=== PATIENT | female | born 1995 | race Caucasian/White ===

== ENCOUNTER 2019-12-27 15:28 | Outpatient (REF) | payer MEDICAID, SELFPAY | END 2019-12-27 15:29 | disposition home or self-care (01) | LOC: HO.LAB 15:28 | PROVIDERS: Visit Provider Internal Medicine | DX: Z20.828 Contact with and (suspected) exposure to other viral communicable diseases (principal) | CPT/HCPCS: U0003 ==

== ENCOUNTER → 2020-11-10 13:23 | Outpatient (BNVA) | payer MEDICAID, SELFPAY | PROVIDERS: PCP Internal Medicine; Visit Provider Obstetrics & Gynecology | DX: R87.612 Low grade squamous intraepithelial lesion on cytologic smear of cervix (LGSIL) (principal) | CPT/HCPCS: 99202 ==

== ENCOUNTER → 2020-11-24 12:15 | Outpatient (BNVA) | payer MEDICAID, SELFPAY | PROVIDERS: PCP Internal Medicine; Visit Provider Obstetrics & Gynecology ==

== ENCOUNTER 2020-12-24 09:17 | Outpatient (REF) | payer MEDICAID, SELFPAY | END 2020-12-24 09:18 | disposition home or self-care (01) | LOC: HO.LAB 09:17 | PROVIDERS: PCP Internal Medicine; Visit Provider Obstetrics & Gynecology | DX: R87.612 Low grade squamous intraepithelial lesion on cytologic smear of cervix (LGSIL) (principal) | CPT/HCPCS: 57454; 88305 ==

== ENCOUNTER → 2020-12-31 11:44 | Outpatient (BNVA) | payer MEDICAID, SELFPAY | PROVIDERS: PCP Internal Medicine; Visit Provider Obstetrics & Gynecology | DX: N87.0 Mild cervical dysplasia (principal) | CPT/HCPCS: 99212 ==

== ENCOUNTER 2022-03-15 09:08 | Outpatient (REF) | payer MEDICAID, SELFPAY ==
[2022-03-15 14:15] LABS: CT PCR NOT DETECTED (Not Detect.); NG PCR NOT DETECTED (Not Detect.)
[2022-03-16 12:54] LABS: BV Int Neg Control Negative (Negative); BV Int Pos Control Positive (Positive)
[2022-03-22 05:38] LABS: HPV 16 RNA NOT DETECTED (NOT DETECTED); HPV mRNA E6/E7 rflx Detected (Not Detected)
== END 2022-03-15 09:09 | disposition home or self-care (01) ==
LOC: HO.LNP 09:08
PROVIDERS: Advanced Practice Midwife; PCP Internal Medicine; Visit Provider Obstetrics & Gynecology
DX: Z01.419 Encounter for gynecological examination (general) (routine) without abnormal findings (principal); N87.0 Mild cervical dysplasia; N89.8 Other specified noninflammatory disorders of vagina; G71.00 Muscular dystrophy, unspecified; M41.9 Scoliosis, unspecified; Z11.3 Encounter for screening for infections with a predominantly sexual mode of transmission; Z98.51 Tubal ligation status; Z79.899 Other long term (current) drug therapy
CPT/HCPCS: 0353U; 87480; 87510; 87624; 87625; 87660; 88142

== ENCOUNTER 2022-07-06 12:47 | Outpatient (REF) | payer MEDICAID, SELFPAY | END 2022-07-06 12:48 | disposition home or self-care (01) | LOC: HO.LNP 12:47 | PROVIDERS: PCP Internal Medicine; Visit Provider Obstetrics & Gynecology | DX: R87.810 Cervical high risk human papillomavirus (HPV) DNA test positive (principal); R87.610 Atypical squamous cells of undetermined significance on cytologic smear of cervix (ASC-US) | CPT/HCPCS: 57454; 81025; 88305 ==

== ENCOUNTER → 2022-08-04 09:43 | Outpatient (BNVA) | payer MEDICAID, SELFPAY | PROVIDERS: PCP Internal Medicine; Visit Provider Obstetrics & Gynecology ==

== ENCOUNTER 2022-12-20 09:11 | Outpatient (REF) | payer MEDICAID, SELFPAY ==
[2022-12-20 13:19] LABS: CT PCR NOT DETECTED (Not Detect.); NG PCR NOT DETECTED (Not Detect.)
== END 2022-12-20 09:12 | disposition home or self-care (01) ==
LOC: HO.HHCL 09:11
PROVIDERS: Visit Provider Advanced Practice Midwife
DX: N93.9 Abnormal uterine and vaginal bleeding, unspecified (principal); R30.0 Dysuria
CPT/HCPCS: 0353U; 87086

== ENCOUNTER 2022-12-20 11:08 | Outpatient (REF) | payer MEDICAID, SELFPAY ==
[2022-12-20 14:39] LABS: HCG Quantitative < 2 mIU/mL; TSH reflex Free T4 1.33 uIU/mL (0.32-4.0)
[2022-12-21 08:24] LABS: HIV AB/AG Nonreactive (Nonreactive); HIV Num 1 0.06 S/CO (0.00-0.99); ~HepC Num1 0.06 S/CO (0.00-0.79); ~Hepatitis C Antibody Nonreactive (Nonreactive)
[2022-12-21 08:29] LABS: Syphilis Screen Nonreactive (Nonreactive)
== END 2022-12-20 11:09 | disposition home or self-care (01) ==
LOC: HO.HHCL 11:08
PROVIDERS: Visit Provider Advanced Practice Midwife
DX: N93.9 Abnormal uterine and vaginal bleeding, unspecified (principal)
CPT/HCPCS: 0353U; 36415; 84443; 84702; 86780; 86803; 87086; 87389

== ENCOUNTER 2023-05-11 13:06 | Outpatient (REF) | payer MEDICAID, SELFPAY ==
--- NOTE | ~2023-05-11 | US_ITS ---
EXAMINATION: US PELVIS CLINICAL INFORMATION: AP COMPARISON: None available. TECHNIQUE: Ultrasound of the pelvis is performed using transabdominal transducers along with Doppler. Patient refused transvaginal ultrasound FINDINGS: Uterus: The uterus is anteverted, anteflexed and measures 9.1 x 4.0 x 4.6 cm. The double wall endometrial thickness is 0.9 cm. The uterus is smooth in contour and has normal myometrial echogenicity. There is a small hypoechoic lesion in the left body of uterus measuring 0.7 x 0.6 x 0.6 cm likely a small fibroid. Adnexa: Both ovaries are visualized. There is normal color flow to the adnexa. There is no ovarian torsion. There is no pelvic ascites or fluid collection. Right ovary measures 30.0 x 1.6 x 1.8 cm and volume 1.8 mL There is a small exophytic anechoic cyst measuring 1.6 x 1.3 x 1.1 cm. Left ovary measures 2.3 x 1.7 x 1.6 cm and volume 3.3 mL. No focal lesion seen. US/US pelvic complete IMPRESSION: Solitary small uterine fibroid left body of uterus. Likely a small exophytic cyst right ovary. The left ovary is unremarkable.
== END 2023-05-11 13:07 | disposition home or self-care (01) ==
LOC: HO.US 13:06
PROVIDERS: PCP Internal Medicine; Visit Provider Advanced Practice Midwife
DX: N93.9 Abnormal uterine and vaginal bleeding, unspecified (principal)
CPT/HCPCS: 76856

== ENCOUNTER 2023-05-30 08:36 | Outpatient (REF) | payer MEDICAID, SELFPAY ==
[2023-06-22 22:43] LABS: HPV 16 RNA NOT DETECTED (NOT DETECTED); HPV mRNA E6/E7 rflx Detected (Not Detected)
== END 2023-05-30 08:37 | disposition home or self-care (01) ==
LOC: HO.LNP 08:36
PROVIDERS: PCP Internal Medicine; Visit Provider Obstetrics & Gynecology
DX: R87.610 Atypical squamous cells of undetermined significance on cytologic smear of cervix (ASC-US) (principal); R87.810 Cervical high risk human papillomavirus (HPV) DNA test positive; D25.9 Leiomyoma of uterus, unspecified
CPT/HCPCS: 0353U; 84146; 84443; 84702; 85027; 87624; 87625; 88142; 99212

== ENCOUNTER 2023-05-30 08:36 | Outpatient (AMB) | payer MEDICAID, SELFPAY ==
--- NOTE | 2023-05-30 08:46 | A.OFFVIS_ITS ---
Intake Intake Visit Reasons: AUB Applications Project Manager Required: Yes Applications Project Manager Language: Herbicide Service Sales Representative Name: Randi CONNORS Information Interpreted: non-clinical & clinical Cable Television Installer: Cable Television Installer Present (Randi CONNORS) Accompanied by: Employee Allergies No Known Allergies Allergy (Verified 05/30/23 08:50) Is last menstrual period known: Yes HPI HPI Comments History of Present Illness Details Presenting complaining of irregular menstrual cycles the last few months. The patient is started on Depo-Provera around 5 months ago received 2 shots so far and is scheduled for next Depo-Provera injection at [facility] on 06/04. Pelvic ultrasound done in 05/20 showed the following: Uterus: The uterus is anteverted, anteflexed and measures 9.1 x 4.0 x 4.6 cm. The double wall endometrial thickness is 0.9 cm. The uterus is smooth in contour and has normal myometrial echogenicity. There is a small hypoechoic lesion in the left body of uterus measuring 0.7 x 0.6 x 0.6 cm likely a small fibroi d. Adnexa: Both ovaries are visualized. There is normal color flow to the adnexa. There is no ovarian torsion. There is no pelvic ascites or fluid collection. Right ovary measures 30.0 x 1.6 x 1.8 cm and volume 1.8 mL There is a small exophytic anechoic cyst measuring 1.6 x 1.3 x 1.1 cm. Left ovary measures 2.3 x 1.7 x 1.6 cm and volume 3.3 mL. No focal lesion seen. Last co testing was in 03/21 showed ASCUS HPV positive, colpo biopsy/ECC were negative [facility] Medical History LGSIL (low grade squamous intraepithelial dysplasia) Anxiety, generalized Insomnia Hypothyroid Anemia Asthma Scoliosis Muscular dystrophy Surgical History Hx of tubal ligation History of back surgery H/O eye surgery Family History Mother Thyroid disorder HTN (hypertension) Father HTN (hypertension) Paternal Grandmother Diabetes Sister Thyroid disorder Sister No problems noted. Brother No problems noted. 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 Alcohol intake: current Alcohol intake frequency: holidays/special occasions only Patient Tobacco Use Status: Never used Tobacco Current occupational status: disabled Sexual orientation: Straight/Heterosexual Gender identity: Female Female Reproductive History Menstrual Age of Menarche: 12 Review of Systems Const All systems reviewed & are unremarkable except as noted in HPI and below Physical Exam General: Yes no CVA tenderness External Female Exam: normal external appearance and normal appearance of the urethra Speculum Exam - Vagina: normal appearance of the vagina, normal palpation, no lesions and no masses Speculum Exam - Cervix: normal appearance of the cervix, normal palpation, no lesions, no masses and nontender Bimanual exam- vagina & uterus: normal bimanual exam, normal palpation, uterine size normal, normal palpation, uterine shape normal, No Cervical tenderness present and non-tender Bimanual Exam- Adnexa, other: normal adnexae Back/Spine/Pelvis Back: no CVA tenderness Assessment & Plan Assessment & Plan (1) ASCUS with positive high risk HPV cervical: Comment: 2017 LSIL 2020 SHAWNA 1 1 cervix biopsy equivocal insufficient for dysplasia diagnosis otherwise all negative 2022 ascus/HPV positive, colpo/biopsy negative Code(s): R87.610 - Atypical squamous cells of undetermined significance on cytologic smear of cervix (ASC-US); R87.810 - Cervical high risk human papillomavirus (HPV) DNA test positive Plan: Pap repeated, will check the results and treat accordingly (2) Uterine myoma: Code(s): D25.9 - Leiomyoma of uterus, unspecified Plan: Discussed with the patient the findings on pelvic ultrasound & the risk of myosarcoma; discussed with the patient the options of treatment including expectant management versus hysterectomy; the pros and cons, risks benefits of each approach were discussed with the patient including the fact that in cases of myosarcoma, surgical treatment can lead to early diagnosis and positively affects the prognosis; after further discussion, the patient decided to proceed with expectant management. Will repeat pelvic ultrasound periodically. Instructions given to patient to call in case any of the following occurs: pressure symptoms, abnormal uterine bleeding, pelvic pain; and to schedule a six-month pelvic ultrasound and a follow-up appointment . All questions answered, the patient verbalized understanding and agreed with the plan . (3) Abnormal uterine bleeding (AUB): Comment: On Depo-Provera Code(s): N93.9 - Abnormal uterine and vaginal bleeding, unspecified Plan: Urine test done in the office was negative. Co testing done, GC and chlamydia taken CBC, prolactin, TSH, HCG ordered. Discussed with the patient the different causes of abnormal bleeding including thyroid disorders, uterine and ovarian pathology and other potential causes. Discussed with the patient the work up including CBC (to r/o anemia), TSH, pelvic Ultrasound. All questions answered and the patient verbalized understanding. Instructed the patient to schedule an appointment for an endometrial biopsy in 2 weeks. Orders: Orders TSH reflex Free T4 Today N93.9 - Abnormal uterine and vaginal bleeding, unspecified Prolactin Today N93.9 - Abnormal uterine and vaginal bleeding, unspecified HCG Quantitative Today N93.9 - Abnormal uterine and vaginal bleeding, unspecified Complete Blood Count no Diff Today N93.9 - Abnormal uterine and vaginal bleeding, unspecified US pelvic and transvaginal 6 Months D25.9 - Leiomyoma of uterus, unspecified Coding Level of Care Code Est Pt Level 3 (91450) Diagnoses ASCUS with positive high risk HPV cervical R87.610; R87.810 Uterine myoma D25.9 Abnormal uterine bleeding (AUB) N93.9
== END 2023-05-30 12:25 | disposition home or self-care (01) ==
LOC: HO.HWS 08:36
PROVIDERS: PCP Internal Medicine; Visit Provider Obstetrics & Gynecology
DX: R87.610 Atypical squamous cells of undetermined significance on cytologic smear of cervix (ASC-US) (principal); R87.810 Cervical high risk human papillomavirus (HPV) DNA test positive; D25.9 Leiomyoma of uterus, unspecified; N93.9 Abnormal uterine and vaginal bleeding, unspecified
CPT/HCPCS: 99213

== ENCOUNTER 2023-05-30 09:39 | Outpatient (REF) | payer MEDICAID, SELFPAY ==
[2023-05-30 10:53] LABS: Hematocrit 29.5 % (37.0-47.0); Mean Corpuscular HGB Conc 30.5 g/dl (31.0-35.0); Mean Corpuscular Hemoglobin 25.9 pg (27.0-33.0); Mean Corpuscular Volume 84.8 fL (80.0-98.0); Mean Platelet Volume 10.5 fL (9.4-12.3); Platelet Count 415 X10*3/uL (160-400); Red Blood Count 3.48 X10*6/uL (4.20-5.50); Red Cell Distribution Width 15.3 % (11.0-16.0); White Blood Count 6.2 X10*3/uL (4.8-10.8)
[2023-05-30 11:42] LABS: HCG Quantitative < 2 mIU/mL; TSH reflex Free T4 1.22 uIU/mL (0.32-4.0)
[2023-05-31 03:05] LABS: CT PCR NOT DETECTED (Not Detect.); NG PCR NOT DETECTED (Not Detect.)
[2023-05-31 19:13] LABS: Prolactin 14.6 ng/mL
== END 2023-05-30 09:40 | disposition home or self-care (01) ==
LOC: HO.LAB 09:39
PROVIDERS: PCP Internal Medicine; Visit Provider Obstetrics & Gynecology
DX: N93.9 Abnormal uterine and vaginal bleeding, unspecified (principal)
CPT/HCPCS: 0353U; 84146; 84443; 84702; 85027

== ENCOUNTER 2023-06-06 10:04 | Outpatient (REF) | payer MEDICAID, SELFPAY | END 2023-06-06 10:05 | disposition home or self-care (01) | LOC: HO.HHCL 10:04 | PROVIDERS: Visit Provider Internal Medicine | DX: Z13.89 Encounter for screening for other disorder (principal) ==

== ENCOUNTER 2023-06-07 09:18 | Outpatient (REF) | payer MEDICAID, SELFPAY ==
[2023-06-07 12:20] LABS: HCG Quantitative < 2 mIU/mL
== END 2023-06-07 09:19 | disposition home or self-care (01) ==
LOC: HO.HHCL 09:18
PROVIDERS: Visit Provider Internal Medicine
DX: Z13.89 Encounter for screening for other disorder (principal)
CPT/HCPCS: 36415; 84702

== ENCOUNTER 2023-06-28 07:58 | Outpatient (REF) | payer MEDICAID, SELFPAY ==
[2023-06-28 09:44] LABS: Hematocrit 34.8 % (37.0-47.0); Hemoglobin 10.7 g/dl (12.0-16.0); Mean Corpuscular HGB Conc 30.7 g/dl (31.0-35.0); Mean Corpuscular Volume 84.7 fL (80.0-98.0); Platelet Count 423 X10*3/uL (160-400); Red Blood Count 4.11 X10*6/uL (4.20-5.50); White Blood Count 5.5 X10*3/uL (4.8-10.8)
== END 2023-06-28 07:59 | disposition home or self-care (01) ==
LOC: HO.LAB 07:58
PROVIDERS: PCP Internal Medicine; Visit Provider Obstetrics & Gynecology
DX: N93.9 Abnormal uterine and vaginal bleeding, unspecified (principal); R87.611 Atypical squamous cells cannot exclude high grade squamous intraepithelial lesion on cytologic smear of cervix (ASC-H)
CPT/HCPCS: 36415; 57454; 81025; 85027; 88305

== ENCOUNTER 2023-06-28 07:58 | Outpatient (AMB) | payer MEDICAID, SELFPAY ==
--- NOTE | 2023-06-28 07:59 | MHC.OFFVIS ---
Vital Signs 06/28/23 08:02 BMI Reason not done Patient refused/unable Intake Visit Reasons: Colpo/lab follow up Dairy Feed Mixing Operator Required: Yes Dairy Feed Mixing Operator Language: Furnace Door Tender Name: Randi CONNORS Information Interpreted: non-clinical & clinical Synthetic Cloth Binding Cutter: Synthetic Cloth Binding Cutter Present (Randi CONNORS) Accompanied by: Self / Same As Patient Allergies No Known Allergies Allergy (Verified 06/28/23 08:03) HPI Comments Details: Presenting for colposcopy regarding abnormal Pap smear showing ASCUS can not rule out high-grade MARIA E/HPV E6/E7 positive The patient is presenting for follow-up to discuss the results of her abnormal uterine bleeding workup and options of treatment. The following workup was done.: H&H= 11/25.5, the patient was started on iron sulfate 325 mg p.o. t.i.d. TSH, hCG, GC and chlamydia were negative. Pelvic ultrasound showed the following: Uterus: The uterus is anteverted, anteflexed and measures 9.1 x 4.0 x 4.6 cm. The double wall endometrial thickness is 0.9 cm. The uterus is smooth in contour and has normal myometrial echogenicity. There is a small hypoechoic lesion in the left body of uterus measuring 0.7 x 0.6 x 0.6 cm likely a small fibroid. Adnexa: Both ovaries are visualized. There is normal color flow to the adnexa. There is no ovarian torsion. There is no pelvic ascites or fluid collection. Right ovary measures 30.0 x 1.6 x 1.8 cm and volume 1.8 mL There is a small exophytic anechoic cyst measuring 1.6 x 1.3 x 1.1 cm. Left ovary measures 2.3 x 1.7 x 1.6 cm and volume 3.3 mL. No focal lesion seen Last Depo-Provera shot once in [facility] on 06/05/2023 [facility] Medical History LGSIL (low grade squamous intraepithelial dysplasia) Anxiety, generalized Insomnia Hypothyroid Anemia Asthma Scoliosis Muscular dystrophy Surgical History Hx of tubal ligation History of back surgery H/O eye surgery Family History Mother Thyroid disorder HTN (hypertension) Father HTN (hypertension) Paternal Grandmother Diabetes Sister Thyroid disorder Sister No problems noted. Brother No problems noted. 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 intake: current Alcohol intake frequency: holidays/special occasions only Patient Tobacco Use Status: Never used Tobacco Current occupational status: disabled Sexual orientation: Straight/Heterosexual Gender identity: Female Female Reproductive History Menstrual Age of Menarche: 12 Date of last menstrual period: 04/19/23 Review of Systems Const All systems reviewed & are unremarkable except as noted in HPI and below Reports as per HPI and Reports no additional complaints GI Reports no additional complaints Reports no additional complaints Office Procedures Colposcopy Before the procedure was started discussed with the patient the procedure, alternatives & all the risks associated with the procedure (bleeding, infection, injury to vagina, bladder, vessels, possible need for transfusion with all its risks) then patient signed the consent Pap smear = ASCUS can not rule out high-grade MARIA E Urine test done in the office was negative Speculum inserted, acetic acid used Colposcopy done Transformation zone seen, acetowhite lesions identified at 7+9+11+12+1+4 o?clock, cervical biopsies taken from 7+9+11+12+1+ o?clock, ECC done afterwards. Vaginoscopy of the upper vagina showed no evidence of any aceto-white lesions Monsel solution used for hemostasis. The patient tolerated well . At the end the patient was instructed to call if temp>100.4, abdominal pain, n/v, bleeding; The patient was given the following instructions: nothing per vagina, no intercourse or bath tub use. All questions answered the patient verbalized understanding. Instructed the patient to make an appointment in 2 weeks for follow-up This note was generated with a voice recognition program. Some errors may have been overlooked during the review of this note. Sometimes these errors may affect the content or meaning of a given sentence. [id number]-[id number] of cervix including upper vagina with biopsy and ECC Procedure code (CPT) selection complete Results AMB Test Urine AMB Test Urine Negative Last Edit by Randi Yu CMA on 06/28/23 08:13 Results Reviewed Results Reviewed: Laboratory Last Values Tst Clinic Negative 06/28/23 08:13 Assessment & Plan Assessment & Plan (1) Abnormal uterine bleeding (AUB): Comment: On Depo-Provera Code(s): N93.9 - Abnormal uterine and vaginal bleeding, unspecified Category: Medical Plan: Urine test done in the office today was negative. Recommended the patient to stay on Iron sulfate 325 mg p.o. t.i.d. CBC stat ordered If bleeding persists will schedule EMB in 2 weeks Discussed with the patient the results of the workup including TSH, prolactin, hCG, GC/CT and ultrasound all within normal. Options of treatment discussed with the patient include estrogen only, combined estrogen-progestin pill, mefenamic acid or TXA. All pros and cons, risks including thromboembolism especially in the patient's condition since she is wheelchair bound is elevated were discussed with the patient. The patient would like to think about it and get back to me. Instructions given the patient to schedule a 2 week follow-up appointment for EMB . (2) Pap smear of cervix with ASCUS, cannot exclude HGSIL: Comment: HPV E6/E7 positive Code(s): R87.611 - Atypical squamous cells cannot exclude high grade squamous intraepithelial lesion on cytologic smear of cervix (ASC-H) Category: Medical Plan: Discussed with the patient the result of her abnormal pap, its significance, risk of progression, persistence, and regression. the false positive/negative rate of a Pap smear as a screening test in detecting cervical cancer and the indication for a diagnostic test -colposcopy, biopsy, endocervical curettage. Colposcopy done, see procedure note The patient verbalized understanding and agreed with the plan, all questions answered. Orders: Orders AMB HCG Urine Test Today Z32.02 - Encounter for test, result negative AMB Colposcopy Today R87.611 - Atypical squamous cells cannot exclude high grade squamous intraepithelial lesion on cytologic smear of cervix (ASC-H) Complete Blood Count no Diff Today N93.9 - Abnormal uterine and vaginal bleeding, unspecified Coding Level of Care Code Est Pt Level 3 (21141) Procedure Only Diagnoses Abnormal uterine bleeding (AUB) N93.9 Pap smear of cervix with ASCUS, cannot exclude HGSIL R87.611 CPT Codes Colposcopy - CPT: 30085-Madziyjmz of cervix including upper vagina with biopsy and ECC ([id number])
== END 2023-06-28 08:34 | disposition home or self-care (01) ==
PROVIDERS: PCP Internal Medicine; Referring Provider Internal Medicine; Visit Provider Obstetrics & Gynecology
DX: N93.9 Abnormal uterine and vaginal bleeding, unspecified (principal); R87.611 Atypical squamous cells cannot exclude high grade squamous intraepithelial lesion on cytologic smear of cervix (ASC-H); Z32.02 Encounter for pregnancy test, result negative
CPT/HCPCS: 57454

== ENCOUNTER 2023-06-28 09:16 | Outpatient (REF) | payer MEDICAID, SELFPAY | END 2023-06-28 09:17 | disposition home or self-care (01) | LOC: HO.LNP 09:16 | PROVIDERS: Visit Provider Obstetrics & Gynecology | DX: R87.611 Atypical squamous cells cannot exclude high grade squamous intraepithelial lesion on cytologic smear of cervix (ASC-H) (principal) | CPT/HCPCS: 88305 ==

== ENCOUNTER 2023-07-13 10:14 | Outpatient (AMB) | payer MEDICAID, SELFPAY ==
--- NOTE | 2023-07-13 10:16 | MHC.OFFVIS ---
Vital Signs 07/13/23 10:21 BMI Reason not done Patient refused/unable Intake Visit Reasons: colpo results/EMB procedure Developer Automatic Required: Yes Developer Automatic Language: Swimming Instructor Name: Randi CONNORS Information Interpreted: non-clinical & clinical School Age Program Associate: School Age Program Associate Present (Randi CONNORS) Accompanied by: Employee Allergies No Known Allergies Allergy (Verified 07/13/23 10:24) Is last menstrual period known: Yes Last menstrual period: 12/26/19 Post menopausal: No Patient : No Do you need a note to return to daycare/school/sports/work: Yes (for surgery on monday) HPI Comments Details: Presenting post colpo for follow-up and for EMB for AUB on Depo-Provera. The patient is doing well with no complaints. Pap smear on 06/20 showed low-grade MARIA E can not rule out high-grade The pathology showed the following: A. Endocervix, curettage: Scant superficial strips of endocervical epithelium within normal limits. B. Cervix, 1 o'clock, biopsy: Tissue did not survive processing. C. Cervix, 4 o'clock, biopsy: Inflamed cervical transformation zone mucosa with reactive changes. D. Cervix, 7 o'clock, biopsy: - Small fragment of squamous epithelium within normal limits. - No endocervical epithelium present. E. Cervix, 9 o'clock, biopsy: - Low grade squamous intraepithelial lesion (SHAWNA 1). - Background endocervical epithelium within normal limits. F. Cervix, 11 o'clock, biopsy: - Low grade squamous intraepithelial lesion (SHAWNA 1). - Background inflamed endocervical mucosa; otherwise within normal limits. G. Cervix, 12 o'clock, biopsy: Inflamed cervical transformation zone mucosa with reactive changes. COMMENT: The findings are concordant with the patient's recent Pap/cytology specimen ([id number]; low grade lesion, cannot rule out high grade lesion) - slide reviewed In 12/17 the patient had SHAWNA 1 PFSH Medical History LGSIL (low grade squamous intraepithelial dysplasia) Anxiety, generalized Insomnia Hypothyroid Anemia Asthma Scoliosis Muscular dystrophy Surgical History Hx of tubal ligation History of back surgery H/O eye surgery Family History Mother Thyroid disorder HTN (hypertension) Father HTN (hypertension) Paternal Grandmother Diabetes Sister Thyroid disorder Sister No problems noted. Brother No problems noted. 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 Alcohol intake frequency: holidays/special occasions only Patient Tobacco Use Status: Never used Tobacco Current occupational status: disabled Sexual orientation: Straight/Heterosexual Gender identity: Female Female Reproductive History Menstrual Age of Menarche: 12 Date of last menstrual period: 12/26/19 Total pregnancies: 2 Full term: 2 Review of Systems Card Reports as per HPI and Reports no additional complaints Resp Reports as per HPI and Reports no additional complaints GI Reports as per HPI and Reports no additional complaints Reports as per HPI Physical Exam Const General: cooperative, healthy appearing and comfortable Resp Effort & Inspection: normal respiratory effort Auscultation: clear to auscultation bilaterally Percussion: percussion normal Cardio Palpation: normal PMI Rate: regular rate Rhythm: regular rhythm Heart sounds: no murmurs and no rubs Peripheral pulses: Peripheral pulses 2+ throughout GI Inspection: Yes normal to inspection Palpation (GI): Soft to palpation, nontender, no guarding, not rigid and No hepatosplenomegaly present Percussion: Yes normal to percussion Auscultation: normal bowel sounds Rectal Exam - Female: deferred Office Procedures Endometrial Biopsy Details: The patient was counseled regarding the indication and benefits of endometrial sampling to rule out endometrial pathology including not limited to endometrial hyperplasia or endometrial cancer and others; The alternatives (Either do nothing vs. hysteroscopy D&C) & the risks were discussed with the patient including but not limited: pain, uterine perforation, bleeding, infection, possible injury to bladder, bowel, ureter, possible need for blood transfusion with all its possible risks. The patient verbalized understanding all questions answered and signed consent. Urine test done in the office was negative The patient was placed into the dorsal lithotomy position; a speculum was inserted in the vagina. Using aseptic technique for the procedure, the cervix was cleansed with Betadine. The anterior lip of the cervix was grasped with a single tooth tenaculum. The uterus was sounded to 7 cm with a 4 mm Pipelle was used. Tissues samples were obtained and placed in formalin, in a patient labeled container and sent to the pathology department. At the end of the procedure, there was minimal bleeding noted The patient tolerated the procedure well and was discharged in good condition with the following instructions: Nothing in the vagina until the bleeding stops. No sex until the bleeding stops, to call if any of the following occurs: fever (>100.4), flu-like symptoms, abdominal pain, heavy bleeding, four smelling vaginal discharge. The patient was instructed to schedule a Follow up appointment in 2 weeks to discuss pathology results of the biopsy and treatment options. This note was generated with a voice recognition program. Some errors may have been overlooked during the review of this note. Sometimes these errors may affect the content or meaning of a given sentence. [id number] Biopsy Results AMB Test Urine AMB Test Urine Negative Last Edit by Randi Yu CMA on 07/13/23 10:41 Assessment & Plan Assessment & Plan (1) Dysplasia of cervix, low grade (SHAWNA 1): Comment: SHAWNA 1 since 2020 Pap smear LGSIL can not rule out high-grade, discrepancy between cytology and pathology Code(s): N87.0 - Mild cervical dysplasia Category: Medical Plan: Given persistent SHAWNA 1 and discrepancy between Pap smear showing low-grade can not rule out high-grade and pathology showing only SHAWNA 1, recommended LEEP cone was post cone ECC as a diagnostic/therapeutic next step. Discussed with the patient the procedure, its benefits and risks including bleeding, infection, possible need for blood transfusion with all its risk ( HIV, syphilis, Hepatitis, anaphylaxis shock, others..), injury to bladder, rectum, possible re-excision for positive margins, potential need for hysterectomy, possible future negative impact on fertility including ( cervical stenosis, incompetence , increase risk for c section 2ndary to cervical scarring and failure of dilatation), possible positive margin necessitating re-excision. Also discussed the patient options of anesthesia either paracervical block versus IV sedation/MAC, prefers to proceed with IV sedation/MAC. All questions answered, the patient verbalized understanding and signed the consent. (2) Abnormal uterine bleeding (AUB): Comment: On Depo-Provera Code(s): N93.9 - Abnormal uterine and vaginal bleeding, unspecified Category: Medical Plan: EMB done, see procedure note Orders: Orders AMB HCG Urine Test Today Z32.02 - Encounter for test, result negative AMB Endometrial Biopsy Today N93.9 - Abnormal uterine and vaginal bleeding, unspecified Coding Level of Care Code Est Pt Level 3 (39282) Procedure Only Diagnoses Dysplasia of cervix, low grade (SHAWNA 1) N87.0 Abnormal uterine bleeding (AUB) N93.9 CPT Codes Endometrial Biopsy - CPT: 99163-Zlllopqbzty Biopsy ([id number])
== END 2023-07-13 11:29 | disposition home or self-care (01) ==
LOC: HO.HWS 10:14
PROVIDERS: PCP Internal Medicine; Visit Provider Obstetrics & Gynecology
DX: N87.0 Mild cervical dysplasia (principal); N93.9 Abnormal uterine and vaginal bleeding, unspecified; Z32.02 Encounter for pregnancy test, result negative
CPT/HCPCS: 58100; 99213

== ENCOUNTER 2023-07-13 10:14 | Outpatient (REF) | payer MEDICAID, SELFPAY | END 2023-07-13 10:15 | disposition home or self-care (01) | LOC: HO.LNP 10:14 | PROVIDERS: PCP Internal Medicine; Visit Provider Obstetrics & Gynecology | DX: R87.611 Atypical squamous cells cannot exclude high grade squamous intraepithelial lesion on cytologic smear of cervix (ASC-H) (principal); N93.9 Abnormal uterine and vaginal bleeding, unspecified | CPT/HCPCS: 58100; 81025; 88305; 99212 ==

== ENCOUNTER 2023-07-27 15:44 | Outpatient (AMB) | payer MEDICAID, SELFPAY ==
--- NOTE | 2023-07-27 15:44 | A.OFFVIS_ITS ---
Intake Visit Reasons: TV EMB resuts Licensed Psychologist Required: Yes Licensed Psychologist Language: Plant Facilities Technician Name: Randi CONNORS Information Interpreted: non-clinical & clinical Allergies No Known Allergies Allergy (Verified 07/27/23 15:45) HPI Comments Details: The patient is scheduled a telehealth visit to discuss the results of the workup for regarding abnormal Pap smear showing ASCUS can not rule out high-grade MARIA E/HPV E6/E7 positive and abnormal uterine bleeding The patient is presenting for follow-up to discuss the results of her abnormal uterine bleeding workup and options of treatment. The following workup was done.: H&H= 11/25.5, the patient was started on iron sulfate 325 mg p.o. t.i.d. TSH, hCG, GC and chlamydia were negative. EMB pathology showed the following: Inactive endometrium with pseudodecidual change consistent with exogenous progestin; negative for atypia or hyperplasia Pelvic ultrasound showed the following: Uterus: The uterus is anteverted, anteflexed and measures 9.1 x 4.0 x 4.6 cm. The double wall endometrial thickness is 0.9 cm. The uterus is smooth in contour and has normal myometrial echogenicity. There is a small hypoechoic lesion in the left body of uterus measuring 0.7 x 0.6 x 0.6 cm likely a small fibroid. Adnexa: Both ovaries are visualized. There is normal color flow to the adnexa. There is no ovarian torsion. There is no pelvic ascites or fluid collection. Right ovary measures 30.0 x 1.6 x 1.8 cm and volume 1.8 mL There is a small exophytic anechoic cyst measuring 1.6 x 1.3 x 1.1 cm. Left ovary measures 2.3 x 1.7 x 1.6 cm and volume 3.3 mL. No focal lesion seen Colposcopy/biopsy/ECC pathology showed the following: A. Endocervix, curettage: Scant superficial strips of endocervical epithelium within normal limits. B. Cervix, 1 o'clock, biopsy: Tissue did not survive processing. C. Cervix, 4 o'clock, biopsy: Inflamed cervical transformation zone mucosa with reactive changes. D. Cervix, 7 o'clock, biopsy: - Small fragment of squamous epithelium within normal limits. - No endocervical epithelium present. E. Cervix, 9 o'clock, biopsy: - Low grade squamous intraepithelial lesion (SHAWNA 1). - Background endocervical epithelium within normal limits. F. Cervix, 11 o'clock, biopsy: - Low grade squamous intraepithelial lesion (SHAWNA 1). - Background inflamed endocervical mucosa; otherwise within normal limits. G. Cervix, 12 o'clock, biopsy: Inflamed cervical transformation zone mucosa with reactive changes. COMMENT: The findings are concordant with the patient's recent Pap/cytology specimen ([id number]; low grade lesion, cannot rule out high grade lesion) - slide reviewed Last Depo-Provera shot once in [facility] on 06/05/2023 [facility] Medical History (Updated 07/27/23 @ 16:03 by Corky Beltre MD) LGSIL (low grade squamous intraepithelial dysplasia) Anxiety, generalized Insomnia Hypothyroid Anemia Asthma Scoliosis Muscular dystrophy Surgical History Hx of tubal ligation History of back surgery H/O eye surgery Family History Mother Thyroid disorder HTN (hypertension) Father HTN (hypertension) Paternal Grandmother Diabetes Sister Thyroid disorder Sister No problems noted. Brother No problems noted. 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 Alcohol intake: current Alcohol intake frequency: holidays/special occasions only Patient Tobacco Use Status: Never used Tobacco Current occupational status: disabled Sexual orientation: Straight/Heterosexual Gender identity: Female Female Reproductive History Menstrual Age of Menarche: 12 Telehealth Telehealth Telehealth Platform: Telephone Location of provider rendering services: practice address Location of patient: address on file Patient Identification confirmed using: Name, : Yes Telehealth method: video Patient verbally consented to treatment: Yes Patient verbally consented to billing insurance company: Yes Patient informed of any privacy concerns related to visit: Yes Assessment & Plan Assessment & Plan (1) Abnormal uterine bleeding (AUB): Comment: On Depo-Provera Anemia Code(s): N93.9 - Abnormal uterine and vaginal bleeding, unspecified Category: Medical Plan: Discussed with the patient the results of the workup for abnormal uterine bleeding, the patient was reassured, since bleeding resolved, instructions were given to the patient to call in case of recurrence of her vaginal bleeding and to continue taking iron sulfate and repeat CBC in 6 weeks Next schedule Depo-Provera is on 09/04/2023, instructions given the patient to keep her appointment (2) Dysplasia of cervix, low grade (SHAWNA 1): Comment: SHAWNA 1 persistent since 2020 Code(s): N87.0 - Mild cervical dysplasia Category: Medical Plan: Discussed with the patient the persistent SHAWNA 1 since 2020, recommended LEEP excision since the patient is more concerned about progression of cervical dysplasia and is not interested in future (the patient has tubal ligation). Will schedule LEEP possible cone was post cone ECC. Discussed with the patient the procedure, its benefits and risks including bleeding, infection, possible need for blood transfusion with all its risk ( HIV, syphilis, Hepatitis, anaphylaxis shock, others..), injury to bladder, rectum, possible re-excision for positive margins, potential need for hysterectomy, possible future negative impact on fertility including ( cervical stenosis, incompetence , increase risk for c section 2ndary to cervical scarring and failure of dilatation), possible positive margin necessitating re-excision. Also discussed the patient options of anesthesia either paracervical block versus IV sedation/MAC, prefers to proceed with IV sedation/MAC. All questions answered, the patient verbalized understanding and will sign the consent. I spent a total of 20 minutes reviewing the chart, talking to the patient via video and documenting in the medical record. Orders: Orders Complete Blood Count no Diff 6 Weeks N93.9 - Abnormal uterine and vaginal bleeding, unspecified Coding Level of Care Code Tele Est Pt Level 1 (32804) Diagnoses Abnormal uterine bleeding (AUB) N93.9 Dysplasia of cervix, low grade (SHAWNA 1) N87.0
== END 2023-07-27 16:00 | disposition home or self-care (01) ==
LOC: HO.HWS 15:44
PROVIDERS: PCP Internal Medicine; Visit Provider Obstetrics & Gynecology
DX: N93.9 Abnormal uterine and vaginal bleeding, unspecified (principal); N87.0 Mild cervical dysplasia
CPT/HCPCS: 99211

== ENCOUNTER → 2023-07-27 15:44 | Outpatient (BNVA) | payer MEDICAID, SELFPAY | PROVIDERS: PCP Internal Medicine; Visit Provider Obstetrics & Gynecology ==

== ENCOUNTER 2023-08-04 09:09 | Day surgery (SDC) | payer MEDICAID, SELFPAY ==
[2023-08-04 09:34] VITALS: BMI 19.4
[2023-08-04 09:37] LABS: UPreg QC Valid YES; Urine Pregnancy NEGATIVE (NEGATIVE)
[2023-08-04 09:57] VITALS: BP 116/81; PULSE 99; RESP 16; TEMP 37; O2SAT 99
--- NOTE | 2023-08-04 09:58 | MHC.SHP ---
Pre-Procedural Eval Section A - 24 Hr Update-Section A only Date of Service: 08/04/23 The patient is an INPATIENT: No Changes since office visit: No Cold of Flu in the past 2 weeks, No New Medical Problems, No Changes in Medication and No Patient answered all questions The patient has been examined within 24 hours of the surgical procedure. The History & Physical has been completed within 30 days and I have reviewed it.: Yes Section B - Complete if H&P > 30 days Chief Complaint: Mild cervical dysplasia Allergies: Allergies Allergy/AdvReac Type Severity Reaction Status Date / Time No Known Allergies Allergy Verified 08/04/23 09:31 Plan Diagnosis/Plan: Unchanged I have reviewed the history and physical and performed a pertinent physical examination on my patient. No changes have occurred unless specified. Time Spent With Patient Time: Total time managing care of this patient today ____ minutes.
[2023-08-04] MEDS: Lactated Ringers 1,000 ML 100 ML IVCONT (09:59)
--- NOTE | 2023-08-04 10:00 | P.CONAN_ITS ---
Documented by User: Cyndy Simeon NP 08/02/23 13:35 HPI - Anesthesia Eval Consult details Narrative: 28yo F for LEEP,poss loop electric excision,poss loop electrical,cone and post endocervical curettage Muscular Dystrophy, wheelchair PMFSH Active Problems Active Problems: All Active Problems Pap smear of cervix with ASCUS, cannot exclude HGSIL (Acute) Abnormal uterine bleeding (AUB) (Acute) Uterine myoma (Acute) ASCUS with positive high risk HPV cervical (Acute) Dysplasia of cervix, low grade (SHAWNA 1) (Acute) General counselling and advice on contraception (Acute) Scoliosis (Acute) Hx of tubal ligation (Acute) Insomnia (Acute) Muscular dystrophy (Acute) Anxiety, generalized (Acute) Past Medical History Medical History (Updated 08/02/23 @ 13:22 by Sarahi Kerr RN) LGSIL (low grade squamous intraepithelial dysplasia) Anxiety, generalized Insomnia Hypothyroid Anemia Asthma Scoliosis Muscular dystrophy Family History Family History Mother Thyroid disorder HTN (hypertension) Father HTN (hypertension) Paternal Grandmother Diabetes Sister Thyroid disorder Sister No problems noted. Brother No problems noted. 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 If so, by whom?: No Are you DNR?: No Advance Directives: No Advance Directives Information Provided: Yes Advance Directives on File: No Eating poorly because of decreased appetite: No Nutrition Risks: No Nutritional Risk Patient : No FDLMP: 08/02/23-spotting Current occupational status: disabled Sexual orientation: Straight/Heterosexual Gender identity: Female Meds Allergies Allergy/AdvReac Type Severity Reaction Status Date / Time No Known Allergies Allergy Verified 08/04/23 09:31 Home Medications ?Medication ?Instructions ?Recorded ?Confirmed ?Last Taken ?Type albuterol sulfate 90 mcg/actuation 2 puff inhalation Q4-6H PRN 07/09/20 08/02/23 Unknown History aerosol inhaler Shortness Of Breath Or Wheezing ascorbic acid (vitamin C) 500 mg 500 mg PO DAILY 07/09/20 08/02/23 Unknown History capsule cholecalciferol (vitamin D3) 50 50 mcg PO DAILY 07/09/20 08/02/23 Unknown History mcg (2,000 unit) capsule docusate sodium 100 mg capsule 100 mg PO DAILY 07/09/20 08/02/23 Unknown History ferrous sulfate 325 mg (65 mg 325 mg PO BID 07/09/20 08/02/23 Unknown History iron) tablet levothyroxine 25 mcg capsule 25 mcg PO DAILY 07/09/20 08/02/23 Unknown History meloxicam 15 mg tablet 15 mg PO DAILY 07/09/20 08/02/23 Unknown History Exam Height,Weight and Vital Signs: Height 4 ft 5 in Pertinent Lab Results Pertinent Lab Results: Laboratory Tests 06/28/23 09:09 WBC 5.5 Hgb 10.7 L Hct 34.8 L Plt Count 423 H Assessment and Plan Assessment Anesthesia Assessment: Chart Reviewed Documented by User: Bambi Heredia DO 08/04/23 10:11 [facility] Past Medical History Medical History (Updated 08/02/23 @ 13:22 by Sarahi Kerr RN) LGSIL (low grade squamous intraepithelial dysplasia) Anxiety, generalized Insomnia Hypothyroid Anemia Asthma Scoliosis Muscular dystrophy Family History Family History Mother Thyroid disorder HTN (hypertension) Father HTN (hypertension) Paternal Grandmother Diabetes Sister Thyroid disorder Sister No problems noted. Brother No problems noted. 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 If so, by whom?: No Are you DNR?: No Advance Directives: No Advance Directives Information Provided: Yes Advance Directives on File: No Eating poorly because of decreased appetite: No Nutrition Risks: No Nutritional Risk Patient : No FDLMP: 08/02/23-spotting Current occupational status: disabled Sexual orientation: Straight/Heterosexual Gender identity: Female Meds Allergies Allergy/AdvReac Type Severity Reaction Status Date / Time No Known Allergies Allergy Verified 08/04/23 09:31 Home Medications ?Medication ?Instructions ?Recorded ?Confirmed ?Last Taken ?Type albuterol sulfate 90 mcg/actuation 2 puff inhalation Q4-6H PRN 07/09/20 08/02/23 Unknown History aerosol inhaler Shortness Of Breath Or Wheezing ascorbic acid (vitamin C) 500 mg 500 mg PO DAILY 07/09/20 08/02/23 Unknown History capsule cholecalciferol (vitamin D3) 50 50 mcg PO DAILY 07/09/20 08/02/23 Unknown History mcg (2,000 unit) capsule docusate sodium 100 mg capsule 100 mg PO DAILY 07/09/20 08/02/23 Unknown History ferrous sulfate 325 mg (65 mg 325 mg PO BID 07/09/20 08/02/23 Unknown History iron) tablet levothyroxine 25 mcg capsule 25 mcg PO DAILY 07/09/20 08/02/23 Unknown History meloxicam 15 mg tablet 15 mg PO DAILY 07/09/20 08/02/23 Unknown History Exam Exam Date and Time: August 04, 2023 1000 Height,Weight and Vital Signs: Height 4 ft 5 in Height 4 ft 5 in Weight 35.2 kg Vital Signs Temperature 98.6 F 08/04/23 09:57 Pulse Rate 99 08/04/23 09:57 Respiratory Rate 16 08/04/23 09:57 Blood Pressure 116/81 08/04/23 09:57 Pulse Oximetry 99 06/07/24 09:57 Oxygen Delivery Method Room Air 08/04/23 09:57 Temperature 98.6 F 08/04/23 09:57 Pulse Rate 99 08/04/23 09:57 Respiratory Rate 16 08/04/23 09:57 Blood Pressure 116/81 08/04/23 09:57 Pulse Oximetry 99 08/04/23 09:57 Oxygen Delivery Method Room Air 08/04/23 09:57 Airway Mallampati Class: III (small mouth opening) TM Dist: >3cm Neck ROM: Full Loose/Missing/Broken Teeth: No (patient denies any loose or broken teeth) Heart: S1S2 Lungs: CTAB Assessment and Plan Assessment Anesthesia Assessment: Anesthesia Plan Discussed and Chart Reviewed Final Anesthetic Review Family History of Problems with Anesthesia: No History of Problems with Anesthesia: No NPO: Yes ASA Class: III Final Preanesthetic Review: No Changes in Pt Med Stat, Meds/Allgs Chart Reviewed, Consent Obtained/Reviewed (energy auditor at bedside for trans lation) and Anes Risks/Benef Reviewed Patient Risk: Intermediate Procedure Risk: Low Anesthetic Plan Anesthetic Plan: GA and Agree w/ Assess. and Plan Disposition: Standard PACU
--- NOTE | 2023-08-04 10:47 | P.BOP_ITS ---
Brief Operative Note Date of Service: 08/04/23 Pre-op diagnosis: Persistent SHAWNA 1 Post-op diagnosis: same Procedure: LEEP with top-hat excision and post LEEP ECC Surgeon: Corky Beltre MD Anesthesia: GLMA and other (Paracervical block) Was an Finishing Supervisor used for this Procedure?: No Estimated blood loss (mL): 0 Pathology: other (Cervical LEEP, top-hat, Post LEEP ECC) Condition: stable Disposition: other (Home)
--- NOTE | 2023-08-04 10:48 | P.OP_ITS ---
Operative Note Operative Note Date of Service: 08/04/23 Narrative: Pre op diagnosis: Persistent SHAWNA 1 Operation: Colposcopy, Loop electrical excision procedure , top hat endocervical excision, post LEEP ECC Postop diagnosis: the same Quantitative blood loss: 50 cc Surgeon: Corky Beltre MD, FACOG Edger Tailer: None Pathology: Cervical LEEP, top-hat endo cervical excision, endo cervical curettage Complications: none Anesthesia: GLMA and Para cervical block Procedure: The patient was put in a dorsal lithotomy position, scrubbed and draped in the usual sterile fashion. A speculum was inserted inside the patient's vagina. The cervix is assessed using the colposcope with acetic acid , the lesions were seen, and at least 1 cm of the squamocolumnar junction was observed. 20 x 5 mm size loop was selected based upon the diameter of the lesion. Lugol solution was used to outline the lesions and area of the transformation zone order to be removed 10 cc of xylocaine with epinephrine were injected submucosally into the surface of the cervix (ectocervix) at the 3, 6, 9, and 12 o'clock positions. The electrosurgical generator is set at 40 rodriguez on blend 1. The loop is carefully passed simultaneously around and under the transformation zone, in order to ensure excising it making sure the lesions is at least 5 mm far from the specimen margins . The loop was allowed to glide through the cervix from one side to the other, allowing the cutting current to divide the tissue, endo cervical top-hat excision was performed next. An endo cervical curettage is performed following completion of excision, and hemostasis is obtained with a Ball electrode or regular tip cautery. At the end, Monsel's solution was applied to the cone bed. The patient tolerated the procedure well and, all instruments were taken out of the patient vaginal cavity, and the patient was transferred to the PACU in stable condition.
[2023-08-04 10:57] VITALS: BP 104/64; PULSE 95; RESP 18; TEMP 36.5; O2SAT 96
[2023-08-04 11:02] VITALS: BP 107/74; PULSE 85; RESP 18; O2SAT 98
[2023-08-04 11:07] VITALS: BP 107/67; PULSE 88; RESP 18; O2SAT 97
[2023-08-04 11:12] VITALS: BP 113/71; PULSE 78; RESP 18; O2SAT 98
[2023-08-04 11:27] VITALS: BP 100/65; PULSE 68; RESP 18; TEMP 36.8; O2SAT 97
== END 2023-08-04 12:05 | disposition home or self-care (01) ==
PROVIDERS: PCP Internal Medicine; Visit Provider Obstetrics & Gynecology
PROC: 0UBC7ZZ Excision of Cervix, Via Natural or Artificial Opening (ICD-10-PCS; CPT 57522; principal; 2023-08-04 10:30)
DX: N87.1 Moderate cervical dysplasia (principal); J45.909 Unspecified asthma, uncomplicated
CPT/HCPCS: 57461; 81025; 88305; 88307; J1885; J2405; J2704; J3010

== ENCOUNTER → 2023-08-04 09:09 | Outpatient (BNV) | payer MEDICAID, SELFPAY | PROVIDERS: PCP Internal Medicine; Visit Provider Obstetrics & Gynecology | DX: N87.0 Mild cervical dysplasia (principal) | CPT/HCPCS: 57461 ==

== ENCOUNTER 2023-08-16 13:47 | Outpatient (AMB) | payer MEDICAID, SELFPAY ==
--- NOTE | 2023-08-16 13:47 | MHC.OFFVIS ---
Intake Visit Reasons: post op Allergies No Known Allergies Allergy (Verified 08/04/23 09:31) HPI Comments Details: The patient is presenting for follow-up post LEEP cone, top-hat excision and post cone ECC. The patient has no complaints. The pathology showed the following: A. Cervix, conization: -Focal high grade squamous intraepithelial lesion (moderate dysplasia, SHAWNA II). -Ectocervical margin: Free of dysplasia. -Endocervical margin: Free of dysplasia. -Radial (deep stromal) margin: Free of dysplasia. -Endocervical glands present. -Biopsy site changes present. Comment: Focal low-grade squamous intraepithelial lesion also noted. B. Cervix, top-hat, conization: Endocervical glandular mucosa with biopsy site changes; negative for dysplasia. C. Endocervix, post cone curettage: Endocervical glandular mucosa; negative for dysplasia PFSH Medical History LGSIL (low grade squamous intraepithelial dysplasia) Anxiety, generalized Insomnia Hypothyroid Anemia Asthma Scoliosis Muscular dystrophy Surgical History History of surgery on lower extremity Hx of tubal ligation History of back surgery H/O eye surgery Family History Mother Thyroid disorder HTN (hypertension) Father HTN (hypertension) Paternal Grandmother Diabetes Sister Thyroid disorder Sister No problems noted. Brother No problems noted. 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 Alcohol intake frequency: does not drink Comment: w/c bound due to muscular dystrophy Patient Tobacco Use Status: Never used Tobacco Current occupational status: disabled Sexual orientation: Straight/Heterosexual Gender identity: Female Female Reproductive History Menstrual Age of Menarche: 12 Review of Systems Const All systems reviewed & are unremarkable except as noted in HPI and below Reports as per HPI and Reports no additional complaints GI Reports no additional complaints Reports no additional complaints Telehealth Telehealth Telehealth Platform: Telephone Location of provider rendering services: practice address Location of patient: address on file Patient Identification confirmed using: Name, : Yes Telehealth method: video Patient verbally consented to treatment: Yes Patient verbally consented to billing insurance company: Yes Patient informed of any privacy concerns related to visit: Yes Assessment & Plan Assessment & Plan (1) SHAWNA II (cervical intraepithelial neoplasia II): Comment: Status post LEEP cone with post cone ECC negative margins Code(s): N87.1 - Moderate cervical dysplasia Category: Medical Plan: Discussed with the patient the procedure and the pathology of the LEEP cone with post cone ECC showing SHAWNA 2- margins negative top-hat excision and negative post cone ECC. Instructions given to the patient to schedule an HPV based screening in 6 months, if normal then co testing Q year x 3 , if wnl cotest q3 x 25 years check the results and treat accordingly. All questions answered patient verbalized understanding. I spent a total of 20 minutes reviewing the chart, talking to the patient via video and documenting in the medical record. Coding Level of Care Code Tele Est Pt Level 1 (28743) Diagnoses SHAWNA II (cervical intraepithelial neoplasia II) N87.1
== END 2023-08-16 16:03 | disposition home or self-care (01) ==
LOC: HO.HWS 13:47
PROVIDERS: PCP Internal Medicine; Visit Provider Obstetrics & Gynecology
DX: N87.1 Moderate cervical dysplasia (principal)
CPT/HCPCS: 99211

== ENCOUNTER → 2023-08-16 13:47 | Outpatient (BNVA) | payer MEDICAID, SELFPAY | PROVIDERS: PCP Internal Medicine; Visit Provider Obstetrics & Gynecology ==

== ENCOUNTER 2024-04-12 11:03 | Outpatient (REF) | payer MEDICAID, SELFPAY ==
--- NOTE | ~2024-04-12 | US_ITS ---
CLINICAL HISTORY: D25.9 - Leiomyoma of uterus, unspecified US pelvis transabdominal with Doppler Comparison: 05/11/2023 Findings: Transabdominal scanning performed for overall anatomy. Anteverted uterus is 7.8 cm length. Normal myometrium. Endometrium 2.0 mm thickness. There is a myometrial 1.1 x 1.0 x 0.0 cm leiomyoma, previously measuring 0.7 x 0.6 x 0.6 cm. Right ovary 1.9 x 1.5 x 1.2 cm. Left ovary not visualized. Normal color Doppler with arterial/venous spectral tracing of right ovary. No free fluid. IMPRESSION: 1. Uterine leiomyoma. No evidence of ovarian torsion. This document has been electronically signed by: Elder Payan MD on 04/13/2024 08:22:06
--- OUTSIDE RECORDS SUMMARY | 2024-04-12 11:59 | XMS_ITS | Encounter Summary ---
Author Organization [employer] Address [address] [place] [address] Care Team Providers Care Automotive Drivability Technician Name Role Phone Suzanna Mcallister MD Primary Care Provider + Reason for Visit * Reason Onset Date Comments Electric WheelChair Request 02/02/2023 Encounter Details Date Type Department Care Team ([facility] st Contact Info) Description 02/02/2023 Telephone [facility] [address] [place], [place] [phone] Suzanna Mcallister MD [address] [place], [place] [phone] Electric WheelChair Request Social History Tobacco Use Types Packs/Day Years Used Date Smoking Tobacco: Never Smokeless Tobacco: Never Alcohol Use Standard Drinks/Week Comments Never 0 (1 standard drink = 0.6 oz pur e alcohol) Depression Answer Date Recorded Patient Health Questionnaire-9 Score 18 11/30/2022 Housing Stability Answer Date Recorded What is your housing situation today? I have tiburcioadolph sánchez 12/14/[address] you li ve. Do you have problems with any of the following? None of the above 12/14/2022 Food Insecurity Answer Date Recorded Within the past 12 months, y ou worried that your food would run out before you got money to buy more: Often true 12/14/2022 Within the past 12 months,th e food you bought just didn't last and you didn't have enough money to get more: Often true Transportation Answer Date Recorded In the past 12 months, has l ack of transportation kept you from medical appts, meetings, work or from getting things needed for daily living? No 12/14/2022 Utilities Answer Date Recorded In the past 12 months, has t he electric, gas, oil or water company threatened to shut off services in your home? No 12/14/2022 Depression Answer Date Recorded Patient Health Questionnaire-2 Score 6 11/30/2022 Comments Unknown Sex and Gender Information Value Date Recorded Sex Assigned at Female 12/27/2021 10:32 AM EDT Legal Sex Female 10:32 AM EDT Gender Identity Female 12/27/2021 10:32 AM EDT Sexual Orientation Straight 12/27/2021 10 :32 AM EDT documented as of this encounter Miscellaneous Notes * Telephone Encounter - Bobby Davis - 02/02/2023 12:33 PM EST Tc from pt requesting a new Script for an Electric Wheelchair. Pt states she was advised by [employer] [employer] that it was time for a new electric wheelchair. 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
--- OUTSIDE RECORDS SUMMARY | 2024-04-12 11:59 | XMS_ITS | Encounter Summary ---
Author Organization [employer] Address 75 [facility] 7t [place] [address] Care Team Providers Care Grinder Carbon Plant Name Role Phone Suzanna Mcallister MD Primary Care Provider + Reason for Visit * Reason Comments Med Refill Encounter Details Date Type Department Care Team (Late st Contact Info) Description 05/01/[address] [facility] [address] [place] [address] Kaylee Kingston, [facility] [address] [place], [place] [phone] Social History Tobacco Use Types Packs/Day Years Used Date Smoking Tobacco: Never Smokeless Tobacco: Never Alcohol Use Standard Drinks/Week Comments Never 0 (1 standard drink = 0.6 oz pur e alcohol) Depression Answer Date Recorded Patient Health Questionnaire-9 Score 18 11/30/2022 Housing Stability Answer Date Recorded What is your housing situation today? I have tiburcio sánchez 12/14/[address] you [...] Patient Health Questionnaire-2 Score 6 11/30/2022 Comments No Sex and Gender Information Value Date Recorded Sex Assigned at Female 12/27/2021 10:32 AM EDT Legal Sex Female 10:32 AM EDT Gender Identity Female 12/27/2021 10:32 AM EDT Sexual Orientation Straight 12/27/2021 10 :32 AM EDT documented as of this encounter Plan of Treatment Upcoming Encounters Date Type Department Care Team (Late st Contact Info) Description 04/29/2024 9:30 AM EST [address] [facility] [address] [place] [phone] 05/24/2024 9:15 AM EDT Office Visit [facility] [address] [place] [phone] Suzanna Mcallister MD [address] [place] [address] documented as of this encounter Visit Diagnoses Not on filedocumented in this encounter Additional Health Concerns Assessment Noted Time PHQ-9 Depression Total Score: 18 023 9:08 AM EDT documented as of this encounter Care Teams Grinder Carbon Plant Relationship Specialty Start Date End Date Suzanna Mcallister MD [address] [place] [phone] PCP - General Family Medicine 01/28/19 Lyn Shelton Director Of Content And ProgrammingTassel Making Machine Operator 08/17/23 documented as of this encounter
--- OUTSIDE RECORDS SUMMARY | 2024-04-12 11:59 | XMS_ITS | Encounter Summary ---
Author Organization [employer] Address 75 [facility] 7t [place] [address] Care Team Providers Care Small Appliance Assembly Supervisor Name Role Phone Suzanna Mcallister MD Primary Care Provider + Reason for Visit * Reason Onset Date Comments Med Refill 11/20/2023 Encounter Details Date Type Department Care Team ([facility] st Contact Info) Description 11/20/2023 Telephone [facility] [address] [place], [place] [phone] Suzanna Mcallister MD [address] [place], [place] [phone] Med Refill Social History Tobacco Use Types Packs/Day Years [...] encounter Miscellaneous Notes * Telephone Encounter - Natalia Blanco LPN - 11/20/2023 11:32 AM EDT Medication pended to provider. * Telephone Encounter - Kumar Arriola - 11/20/2023 11:21 AM EDT TC from pt requesting medication refill. Medications needing refill : medroxyPROGESTERone (Depo-Provera) 150 MG/ML injection To be sent to: [facility] documented in this encounter Plan of Treatment Upcoming Encounters Date Type Department Care Team (Late st Contact Info) Description 04/29/2024 9:30 AM EST Clinical Support [facility] [address] [place] [address] 05/24/2024 9:15 AM EDT Office Visit [facility] [address] [place] [address] Suzanna Mcallister MD [address] [place] [address] documented as of this encounter Visit Diagnoses Not on filedocumented in this encounter Additional Health Concerns Assessment Noted Time PHQ-9 Depression Total Score: 18 023 9:08 AM EDT documented as of this encounter Care Teams Small Appliance Assembly Supervisor Relationship Specialty Start Date End Date Suzanna Mcallister MD [address] [place] [phone] PCP - General Family Medicine 01/28/19 Lyn Shelton Director Global Medical AffairsPublic Policy Manager 08/17/23 documented as of this encounter
--- OUTSIDE RECORDS SUMMARY | 2024-04-12 11:59 | XMS_ITS | Encounter Summary ---
Author Organization [employer] Address 75 [facility] 7t [place] [address] Care Team Providers Care Mottler Operator Name Role Phone Suzanna Mcallister MD Primary Care Provider + Reason for Visit * Reason Comments Pre-visit Planning SDOH screening negat sal and tobacco screening negative Encounter Details Date Type Department Care Team ([facility] st Contact Info) Description 03/29/2024 Patient Outreach [facility] [address] [place], [place] [phone] Suzanna Mcallister MD [address] [place], [place] [phone] Pre-visit Planning (SDOH screening negative and tobacco screening negative) Social History Tobacco Use Types Packs/Day Years Used Date Smoking Tobacco: Never Smokeless Tobacco: Never Alcohol Use Standard Drinks/Week Comments Never 0 (1 standard drink = 0.6 oz pur e alcohol) Depression Answer Date Recorded Patient Health Questionnaire-9 Score 18 11/30/2022 Housing Stability Answer Date Recorded What is your housing situation today? I have tiburcioadolph sánchez 12/25/[address] you li ve. Do you have problems with any of the following? None of the above 12/25/2023 Food Insecurity Answer Date Recorded Within the past 12 months, y ou worried that your food would run out before you got money to buy more: Never True 03/29/2024 Within the past 12 months,th e food you bought just didn't last and you didn't have enough money to get more: Never True Transportation Answer Date Recorded In the past 12 months, has l ack of transportation kept you from medical appts, meetings, work or from getting things needed for daily living? No 12/25/2023 Utilities Answer Date Recorded In the past 12 months, has t he electric, gas, oil or water company threatened to shut off services in your home? No 12/25/2023 Depression Answer Date Recorded Patient Health Questionnaire-2 Score 6 11/30/2022 Internet Access Answer Date Recorded Internet Access Q1 Yes 12/25/2023 Internet Access Q2 Not on file 12/25/2023 Comments Unknown Sex and Gender Information Value Date Recorded Sex Assigned at Female 12/27/2021 10:32 AM EDT Legal Sex Female 10:32 AM EDT Gender Identity Female 12/27/2021 10:32 AM EDT Sexual Orientation Straight 12/27/2021 10 :32 AM EDT documented as of this encounter Progress Notes * Kajal Neal - 03/29/2024 9:32 AM EST CC Kajal placed successful outbound call to patient for pre-visit planning. Patient name and confirmed. Patient confirms appt date and time, and has transportation. Biggest concern for appointment at this time is abdomen pain Patient advised to bring to appointment a photo id and insurance card. Appropriate screenings completed in anticipation of appointment. documented in this encounter Plan of Treatment Upcoming Encounters Date Type Department Care Team (Late st Contact Info) Description 04/29/2024 9:30 AM EST Clinical Support [facility] [address] [place] [address] 05/24/2024 9:15 AM EDT Office Visit [facility] [address] [place] [address] Suzanna Mcallister MD [address] [place] [address] documented as of this encounter Visit Diagnoses Not on filedocumented in this encounter Additional Health Concerns Assessment Noted Time PHQ-9 Depression Total Score: 18 023 9:08 AM EDT documented as of this encounter Care Teams Mottler Operator Relationship Specialty Start Date End Date Suzanna Mcallister MD [address] [place] [phone] PCP - General Family Medicine 01/28/19 Lyn Shelton Day Care AttendantAnnual Giving Director 08/17/23 documented as of this encounter
--- OUTSIDE RECORDS SUMMARY | 2024-04-12 11:59 | XMS_ITS | Encounter Summary ---
Author Organization [employer] Address 75 [facility] 7t [place] [address] Care Team Providers Care Library Specialist Name Role Phone Suzanna Mcallister MD Primary Care Provider + Encounter Details Date Type Department Care Team (Latest Contact Info) Description 04/04/2024 Travel Social History Tobacco Use Types Packs/Day Years Used Date Smoking Tobacco: Never Smokeless Tobacco: Never Alcohol Use Standard Drinks/Week Comments Never 0 (1 standard drink = 0.6 oz pur e alcohol) Depression Answer Date Recorded Patient Health Questionnaire-9 Score 18 11/30/2022 Housing Stability Answer Date Recorded What is your housing situation today? I have tiburcio sánchez 12/25/[address] you [...] Description 04/29/2024 9:30 AM EST Clinical Support [facility] [address] [place] [address] 05/24/2024 9:15 AM EDT Office Visit [address] [address] Suzanna Mcallister MD [address] [place] [address] documented as of this encounter Visit Diagnoses Not on filedocumented in this encounter Additional Health Concerns Assessment Noted Time PHQ-9 Depression Total Score: 18 023 9:08 AM EDT documented as of this encounter Care Teams Library Specialist Relationship Specialty Start Date End Date Suzanna Mcallister MD [address] [place] [phone] PCP - General Family Medicine 01/28/19 Lyn Shelton Friction Welding Machine OperatorOperating Room Manager 08/17/23 documented as of this encounter
--- OUTSIDE RECORDS SUMMARY | 2024-04-12 11:59 | XMS_ITS | Encounter Summary ---
Author Organization [employer] Address [address] [place] [address] 7t [place] [address] Care Team Providers Care Surgical Scrub Tech Name Role Phone Suzanna Mcallister MD Primary Care Provider + Reason for Visit * Reason Onset Date Comments Appointment Request 04/08/2022 Encounter Details Date Type Department Care Team ([facility] st Contact Info) Description 04/08/2022 Telephone [facility] [address] [place], [place] [phone] Suzanna Mcallister MD [address] [place], [place] [phone] Appointment Request Social History Tobacco Use Types Packs/Day Years Used Date Smoking Tobacco: Never Assessed Comments Unknown Sex and Gender Information Value Date Recorded Sex Assigned at Female 12/27/2021 10:32 AM EDT Legal Sex Female 10:32 AM EDT Gender Identity Female 12/27/2021 10:32 AM EDT Sexual Orientation Straight 12/27/2021 10 :32 AM EDT COVID-19 Exposure Response Date Recorded In the last 10 days, have yo u been in contact with someone who was confirmed or suspected to have Coronavirus/COVID-19? No / Unsure 03/25/2022 3:20 PM EST documented as of this encounter Miscellaneous Notes * Telephone Encounter - Prudence Neal - 04/08/2022 10:48 AM EST Tc from pt canceled today derm appt and would like to r/s . documented in this encounter Plan of Treatment Upcoming Encounters Date Type Department Care Team (Late st Contact Info) Description 04/29/2024 9:30 AM EST Clinical Support [address] [address] 05/24/2024 9:15 AM EDT Office Visit [address] [address] Suzanna Mcallister MD [address] [place] [address] documented as of this encounter Visit Diagnoses Not on filedocumented in this encounter Care Teams Surgical Scrub Tech Relationship Specialty Start Date End Date Suzanna Mcallister MD [address] [place] [address] [phone] PCP - General Family Medicine 01/28/19 Lyn Shelton Human Resources Operations DirectorHosiery Knitter 08/17/23 documented as of this encounter
--- OUTSIDE RECORDS SUMMARY | 2024-04-12 11:59 | XMS_ITS | Encounter Summary ---
Author Organization [employer] Address 75 [facility] 7t [place] [address] Care Team Providers Care Change Person Name Role Phone Suzanna Mcallister MD Primary Care Provider + Reason for Visit * Reason Onset Date Comments Med Refill 03/08/2024 Encounter Details Date Type Department Care Team (Late st Contact Info) Description 03/08/2024 Refill [facility] 230 [place], [place] [phone] Suzanna Mcallister MD [address] [place], [place] [phone] Mild intermittent asthma, unspecified whether complicated Social History Tobacco Use Types Packs/Day Years Used Date Smoking Tobacco: Never Smokeless Tobacco: Never Alcohol Use Standard Drinks/Week Comments Never 0 (1 standard drink = 0.6 oz pur e alcohol) Depression Answer Date Recorded Patient Health Questionnaire-9 Score 18 11/30/2022 Housing Stability Answer Date Recorded What is your housing situation today? I have tiubrcio sánchez 12/25/[address] you li ve. Do you have problems with any of the following? None of the above 12/25/2023 Food Insecurity Answer Date Recorded Within the past 12 months, y ou worried that your food would run out before you got money to buy more: Sometimes True 2023 Within the past 12 months,th e food you bought just didn't last and you didn't have enough money to get more: Sometimes True 12/25/2023 Transportation Answer Date Recorded In the past [...] Description 04/29/2024 9:30 AM EST Clinical Support [facility] [address] [place] [phone] 05/24/2024 9:15 AM EDT Office Visit [address] [address] Suzanna Mcallister MD [address] [place] [phone] documented as of this encounter Visit Diagnoses Diagnosis Mild intermittent asthma, unspecified whether complicated documented in this encounter Additional Health Concerns Assessment Noted Time PHQ-9 Depression Total Score: 18 023 9:08 AM EDT documented as of this encounter Care Teams Change Person Relationship Specialty Start Date End Date Suzanna Mcallister MD [address] [place] [phone] PCP - General Family Medicine 01/28/19 Lyn Shelton Scientific SpecialistFreight Rate Clerk 08/17/23 documented as of this encounter
--- OUTSIDE RECORDS SUMMARY | 2024-04-12 12:00 | XMS_ITS | Encounter Summary ---
Author Organization [employer] Address [address] [place] [address] 7t [place] [address] Care Team Providers Care Automatic Pinsetter Mechanic Name Role Phone Suzanna Mcallister MD Primary Care Provider + Encounter Details Date Type Department Care Team (Latest Contact Info) Description 09/04/2018 Abstract [facility] Dental, Provider, DDS Social History Tobacco Use Types Packs/Day Years [...] Description 04/29/2024 9:30 AM EST Clinical Support [facility] [address] [place] [address] [phone] 05/24/2024 9:15 AM EDT Office Visit [facility] [address] [place] [address] [phone] Suzanna Mcallister MD [address] [place] [address] [phone] documented as of this encounter Visit Diagnoses Not on filedocumented in this encounter Care Teams Automatic Pinsetter Mechanic Relationship Specialty Start Date End Date Suzanna Mcallister MD [address] [place] [phone] PCP - General Family Medicine 01/28/19 Lyn Shelton Head CharrerErgonomics Engineer 08/17/23 documented as of this encounter
--- OUTSIDE RECORDS SUMMARY | 2024-04-12 12:00 | XMS_ITS | Clinical Summary ---
Author Organization [facility] Address [address] [place] [address] Care Team Providers Care Repossession Agent Name Role Phone Suzanna Mcallister MD Primary Care Provider + [phone] Allergies No known active allergies Medications Medication Sig Dispensed Refills Start Date End Date Status albuterol (PROVENTIL) (2.5 MG/3ML) 0.083% nebulizer solution Inhale 1 vial into the lungs. 0 Active levothyroxine (SYNTHROID) tablet 25 mcg Take 1 tablet (25 mcg total) by mouth daily. 0 02/03/2021 Active spironolactone (ALDACTONE) tablet 50 mg Take 1 tablet (50 mg total) by mouth every morning. 0 08/08/2022 Active acetaminophen (TYLENOL) 325 MG tablet Take 2 tablets (650 mg total) by mouth every 6 (six) hours as needed. 100 tablet 0 09/05/2022 Active Active Problems Problem Noted Date Diagnosed Date Difficult airway 09/03/2022 Overview: Easy mask Intubated with Glidescope + Bougie + 6.0 I. D. ETT on 09.03.22 for ORIF femur. (Small mouth opening, grade 2b view with MAC 3 + cricoid, grade 2a view with glidescope but could not intubate with a 7.0 ETT). Anterior airway Closed left subtrochanteric femur fracture, initial encounter 09/02/2022 Family History Medical History Relation Name Comments Diabetes Maternal Grandmother Hypertension Maternal Grandmother Relation Name Status Comments Maternal Grandmother Social History Tobacco Use Types Packs/Day Years Used Date Smoking Tobacco: Never Smokeless Tobacco: Never Tobacco Cessation:Counseling Given: Not Answered Alcohol Use Standard Drinks/Week Comments Not Currently 0 (1 standard drink = 0.6 oz pur e alcohol) Sex and Gender Information Value Date Recorded Sex Assigned at Not on file Gender Identity Not on file Sexual Orientation Not on file Job Start Date Occupation Industry Not on file Not on file Not on file Last Filed Vital Signs Vital Sign Reading Time Taken Comments Blood Pressure 94/52 09/05/2022 7:49 AM EDT Pulse 118 09/05/2022 7:49 AM EDT Temperature 37.1 ??C (98.8 ??F) 09/05/2022 7:49 AM ED T Respiratory Rate 16 09/05/2022 7:49 AM EDT Oxygen Saturation 95% 09/05/2022 7:49 AM EDT Inhaled Oxygen Concentration - - Weight 40.8 kg (90 lb) 09/02/2022 11:58 PM EDT Height 122 cm (4' 0.05 ) 09/03/2022 5:00 AM EDT Body Mass Index 27.41 09/02/2022 11:58 PM EDT Plan of Treatment Health Maintenance Due Date Last Done Comments Hepatitis C Screening 1996 COVID-19 Vaccine (#1) 1996 Depression Screening 2008 BMI Counseling 2014 Preventative Health Evaluation 2014 Cervical Cancer Screening (Pap Smear) 2017 DTap / Tdap / Td (6 - Td or Tdap) 01/03/2023 01/03/2013, 06/23/1998, 01/22/1997, Additional history exists Influenza Vaccine (#1) 2023 , 03/20/2019, 11/30/2017, Additional history exists Pneumococcal Vaccine Aged Out 12/09/2016 No long er eligible based on patient's age to complete this topic Hepatitis B Vaccines Completed 03/25/2022, 12/31/2021, 12/03/2021, Additional history exists RSV Ped < 20 months Aged Out No longe r eligible based on patient's age to complete this topic Medical Devices Implanted Type Area Section Crews Activities Clerk Device Identifier Shelf Expiration Date Model / Serial / Lot Screw Lcking [id number] [facility] [id number] - [id number] Implanted:Qty: 1 on 09/03/2022 by Elder Delgado MD at [facility] Left: Femur [employer]EMA TRAUMA [id number] / / Screw Lcking [id number] [employer] [id number] - [id number] Implanted:Qty: 1 on 09/03/2022 by Elder Delgado MD at [facility] Left: Femur [employer]EMA TRAUMA [id number] / / Screw Locking 5x24mm [employer] [id number] - [id number] Implanted:Qty: 2 on 09/03/2022 by Elder Delgado MD at [facility] Left: Femur [employer]EMA TRAUMA [id number] / / Screw Lcking [id number] [employer]am [id number] - [id number] Implanted:Qty: 1 on 09/03/2022 by Elder Delgado MD at [facility] Left: Femur REEMA TRAUMA [id number] / / Screw Cortex Ti [id number] [employer]am [id number] - [id number] Implanted:Qty: 1 on 09/03/2022 by Elder Delgado MD at [facility] Left: Femur REEMA TRAUMA [id number] / / Reema 5.0mm Compression , Narrow 14 Hole Plate Implanted:Qty: 1 on 09/03/2022 by Elder Delgado MD at [facility] Left: Femur [id number] / / Description:REF# [id number] Advance Directives For more information, please contact: [phone] Latest Code Status on File Code Status Date Activated Date Inactivated Comments Full Code 09/02/2022 6:30 PM 09/05/2022 7:13 PM This c ode status was ascertained in the following way: discussion with patient . Care Teams Repossession Agent Relationship Specialty Start Date End Date Suzanna Mcallister MD [address] [place] [phone] PCP - General Family Medicine 09/02/22
--- OUTSIDE RECORDS SUMMARY | 2024-04-12 12:00 | XMS_ITS | Encounter Summary ---
Author Organization [employer] Address [address] [place] [address] 7t [place] [address] Care Team Providers Care Construction Materials Tester Name Role Phone Suzanna Mcallister MD Primary Care Provider + Encounter Details Date Type Department Care Team (Late Contact Info) Description 09/07/2022 Abstract [facility] MEDICINE [address] [place] [phone] Suzanna Mcallister MD [address] [place] [address] Social History Tobacco Use Types Packs/Day Years [...] suspected to have Coronavirus/COVID-19? No / Unsure 08/08/2022 3:26 PM EDT documented as of this encounter Plan of Treatment Upcoming Encounters Date Type Department Care Team (Late Contact Info) Description 04/29/2024 9:30 AM EST Clinical Support [address] [address] 05/24/2024 9:15 AM EDT Office Visit [address] [address] Suzanna Mcallister MD [address] [place] [address] documented as of this encounter Visit Diagnoses Not on filedocumented in this encounter Care Teams Construction Materials Tester Relationship Specialty Start Date End Date Suzanna Mcallister MD [address] [place] [address] PCP - General Family Medicine 01/28/19 Lyn Shelton BanderSlat Grader 08/17/23 documented as of this encounter
--- OUTSIDE RECORDS SUMMARY | 2024-04-12 12:00 | XMS_ITS | Clinical Summary ---
Author Organization [employer] Address [address] [place] [address] 7t [place] [address] Care Team Providers Care Locator Name Role Phone Suzanna Mcallister MD Primary Care Provider + Allergies No known active allergies Medications * This document contains information received from the source organization and may not represent a complete record from that organization. meloxicam (Mobic) 15 MG tablet TAKE ONE TABLET BY MOUTH EVERY DAY 30 tablet 3 3 Active acetaminophen (Tylenol) 325 MG tablet Take 2 tablets by mouth every 6 (six) hours if needed. 3 Active methocarbamol (Robaxin) 750 MG tablet TAKE 1 TABLET BY MOUTH FOUR TIMES DAILY NEEDED FOR UP TO 14 DAYS 3 Active ondansetron (Zofran) 4 MG tablet Take 2 tablets by mouth every 8 (eight) hours if needed for nausea or vomiting. 3 Active pantoprazole (ProtoNix) 40 MG EC tablet Take 1 tablet by mouth in the morning. 3 Active albuterol (Ventolin HFA) 108 (90 Base) MCG/ACT inhaler INHALE 2 PUFFS BY INHALATION ROUTE EVERY 4 TO 6 HOURS IF NEEDED 18 g 1 3 Active ibuprofen 400 MG tablet 1 tablet every 8 hours with food x 7 days 21 tablet 4 Active estrogens, conjugated, (Premarin) 0.625 MG tablet Take 1 tablet (0.625 mg) by mouth in the morning. One tablet daily x 7days 7 tablet 4 05/04/19 25 Active ergocalciferol (Vitamin D2) 1.25 MG (19069 UT) capsule TAKE 1 CAPSULE BY MOUTH ONCE A WEEK 12 capsule 1 4 Active levothyroxine (Synthroid, Levoxyl) 25 MCG tabletIndications :Thyroglossal duct cyst TAKE 1 TABLET BY MOUTH EVERY MORNING 90 tablet 1 4 Active medroxyPROGESTERo ne (Depo-Provera) 150 MG/ML injection Inject 1 mL (150 mg) into the muscle every 3 (three) months. 1 mL 3 4 Active spironolactone (Aldactone) 50 MG tablet TAKE 1 TABLET BY MOUTH EVERY DAY IN THE MORNING 90 tablet 1 4 Active ferrous sulfate (FeroSul) 325 (65 Fe) MG tabletIndications :Anemia due to other cause, not classified TAKE 1 TABLET BY MOUTH EVERY MORNING WITH Vitamin CTAKE 1 TABLET BY MOUTH EVERY MORNING WITH Vitamin C 90 tablet 5 Active Ascorbic Acid (vitamin C) 500 MG tabletIndications :Anemia due to other cause, not classified TAKE 1 TABLET BY MOUTH EVERY MORNING WITH Ferrous Sulfate TABLETTAKE 1 TABLET BY MOUTH EVERY MORNING WITH Ferrous Sulfate TABLET 90 tablet 5 Active albuterol (2.5 MG/3ML) 0.083% nebulizer solutionIndicatio ns:Mild intermittent asthma, unspecified whether complicated INHALE 1 AMPULE USING A NEBULIZER EVERY 6 HOURS NEEDED FOR WHEEZING OR SHORTNESS OF BREATH 90 mL 3 5 Active Active Problems Problem Noted Date Diagnosed Date LGSIL on Pap smear of cervix 06/19/2023 Overview (08/10/2023): PAP smear (Dr Beltre) on 05/2023. Previously POS on 09/2020, had NEG cervical bx on 2022. Cone bx on 08/04/23-->SHAWNA II / neg margins Adjustment disorder with mixed anxiety and depre ssed mood 11/29/2022 Assessment & Plan (11/30/2022 9:40 AM EDT): Patient with adjustment disorder symptoms. No risk for self-harm, SI or HI. Reason for visit was to assess patient for symptoms and offer services. She had recently an accident which led to a fractured femur. Anxiety and depressive episodes increased after this event. Plan is to refer patient to OP individual therapy. Laure is open to start SSRI's to treat symptoms and will consult it with provider during her next appt on 12/14. Provided psychoeducation around depression, anxiety and ways to cope with stressful life events. Pt agreed with plan and will connect with clinician if needed. At this time Laure Batista meets criteria for Visit Diagnoses: Problem List Items Addressed This Visit Other Adjustment disorder with mixed anxiety and depressed mood Patient ready to address current needs Yes Strengths include readiness to change and seek out for help. PLAN: 1. Follow up with [facility]: Recommended for follow-up: Pt will connect with clinician during her next physical appointment. 2. Patient goal is to start therapy and gain motivation back after her accident. 3. Behavioral Recommendations a. Referral for OP individual therapy b. Incorporate self-care and mindfulness mechanisms c. Consult with provider about SSRI's Other specified anemias 09/16/2022 Assessment & Plan (09/16/2022 12:20 PM EDT): Most likely secondary to blood loss during surgery will start iron supplementation + vitamin C x 3 months and check labs Difficult airway 09/03/2022 Overview (11/28/2022): Easy mask Intubated with Glidescope + Bougie + 6.0 I. D. ETT on 7.8.23 for ORIF femur. (Small mouth opening, grade 2b view with MAC 3 + cricoid, grade 2a view with glidescope but could not intubate with a 7.0 ETT). Anterior airway Closed left subtrochanteric femur fracture, initial encounter 09/02/2022 Assessment & Plan (09/16/2022 12:20 PM EDT): s/p ORIF, doing well. No evidence of infection on incision site. pt should follow up with orthopedic surgeon for change of dressing. Continue pain management per orthopedics Continue aspirin until 10/06/22. Abnormal uterine bleeding 04/25/2022 Acne 04/25/2022 Acute headache 04/25/2022 Multiple joint pain 04/25/2022 Suspected COVID-19 virus infection 04/25/2022 Iron deficiency anemia due to chronic blood loss 12/09/2016 Mild intermittent asthma 12/09/2016 Muscular dystrophy 12/09/2016 Scoliosis deformity of spine 12/09/2016 Thyroglossal duct cyst 12/09/2016 Encounters Date Type Department Care Team Description 04/04/2024 Travel 03/29/2024 Patient Outreach [facility] [address] [place] [phone] Suzanna Mcallister MD Pre-visit Planning (SDOH screening negative and tobacco screening negative) 03/08/2024 Refill [facility] [address] [place] [address] [phone] Suzanna Mcallister MD Mild intermittent asthma, unspecified whether complicated 03/08/2024 Refill [facility] [address] [place] [address] [phone] Suzanna Mcallister MD Mild intermittent asthma, unspecified whether complicated 03/05/2024 Refill [facility] P[facility] [address] [place] [address] Suzanna Mcallister MD Anemia due to other cause, not classified 02/11/2024 Refill [facility] [address] [place] [address] [phone] Suzanna Mcallister MD 02/09/[address] [address] [place] Chart prep 02/07/2024 9:30 AM EST Clinical Support [facility] [address] [place] [phone] Mariana Yancey, RN Encounter for Depo-Provera contraception 02/07/2024 Travel 02/02/2024 Patient Outreach [facility] [address] [place] [phone] Suzanna Mcallister MD Pre-visit Planning (SDOH screening completed on 12/25/2023) from Last 3 Months Immunizations Name Administration Dates Next Due DTaP 06/23/1998, 7,1996,08/12 HPV, Unspecified 08/25/2011,10/20/2009, 9 Hep A, ped/adol, 2 dose 01/03/2013,08/25/2011 Hep B, Adolescent or Pediatric 01/22/1997,1996,1996 Hep B, adult 03/25/2022,12/31/2021,12/03/2021 Hib (PRP-T) 06/23/1998, 7,1996,08/12 IPV 04/18/2003, 7,1996,08/12 Influenza injectable quadriv alent IIV4 with preservative 03/20/2019,11/30/2017,12/09/2016 Influenza injectable quadriv alent preservative free 01/14/2021 MMR 04/18/2003,07/09/1997 Meningococcal MCV4P ACYW-135 2015,11/27/19 09 Pneumococcal Polysaccharide PPSV23 12/09/2016 TD (adult), 2 Lf tetanus tox oid, preservative free, adsorbed 01/03/2013,02/09/2004 Tdap 01/03/2013 Varicella 11/26/2008,07/09/1997 Social History Tobacco Use Types Packs/Day Years Used Date Smoking Tobacco: Never Smokeless Tobacco: Never Tobacco Cessation:Counseling Given: Not Answered Alcohol Use Standard Drinks/Week Comments Never 0 [...] Orientation Straight 12/27/2021 10 :32 AM EDT Last Filed Vital Signs Vital Sign Reading Time Taken Comments Blood Pressure 109/70 04/28/2023 9:47 AM EST Pulse 98 04/28/2023 9:47 AM EST Temperature 37.1 ??C (98.7 ??F) 04/28/2023 9:47 AM ES T Respiratory Rate 16 04/28/2023 9:47 AM EST Oxygen Saturation 98% 04/24/2023 10:08 AM EST Inhaled Oxygen Concentration - - Weight 45.4 kg (100 lb) 04/24/2023 10:08 AM EST Height - - Body Mass Index - - Plan of Treatment Upcoming Encounters Date Type Department Care Team (Late st Contact Info) Description 04/29/2024 9:30 AM EST Clinical Support [facility] [address] [place] [phone] 05/24/2024 9:15 AM EDT Office Visit [facility] [address] [place] [phone] Suzanna Mcallister MD [address] [place] [phone] Health Maintenance Due Date Last Done Comments Alcohol/Substance Use Screening 2008 Pneumococcal Vaccine: Pediatrics (0 to 5 Years) and At-Risk Patients (6 to 49) Years) (2 of 2 - PCV) 12/09/2017 12/09/2016 DTaP/Tdap/Td Vaccines (7 - Td or Tdap) 01/03/2023 01/03/2013, 01/03/2013, 02/09/2004, Additional history exists Depression Monitoring (PHQ-9) 06/01/2023 11/30/2022, 11/30/2022 COVID-19 Vaccine ( season) 2023 04/05/2021, 07/17/2020, 06/26/2020 Influenza Vaccine (#1) 2023 , 03/20/2019, 11/30/2017, Additional history exists Depression Screening 12/01/2023 11/30/2022, 12/01/19 Cervical Cancer Screening 02/03/2024 HPV/Cotest 02/03/2024 03/15/2022 Pap Smear 02/03/2024 05/30/2023, 02/27, 10/08/2020 Tobacco Screening 04/24/2024 04/24/2023 Family Planning (PISQ) 02/06/2025 02/07/2024 SDOH Screening 03/29/2025 03/29/2024 Zoster Vaccines (1 of 2) 2046 RSV Patients and Patients Aged 60 years or older (1 - 1-dose 75+ series) 06/11/2071 HIB Vaccines Completed 06/23/1998, 01/27, 1996, Additional history exists IPV Vaccines Completed 04/18/2003, 12/29, 1996, Additional history exists HPV Vaccines Completed 08/25/2011, 09/28, 11/26/2008 Hepatitis A Vaccines Completed 01/03/2013, 08/25/19 12 Meningococcal Vaccine Completed 2015, 009 Hepatitis B Vaccines Completed 03/25/2022, 12/31/2021, 12/03/2021, Additional history exists HIV Screening Completed 12/20/2022, 11/15/2021 Hepatitis C Screening Completed 12/20/2022, 022 RSV under 20 months Aged Out No longe r eligible based on patient's age to complete this topic Rotavirus Vaccines Aged Out No longer eligible based on patient's age to complete this topic Procedures Procedure Name Priority Date/Time Associated Diagnosis Comments POCT , URINE Routine 02/07/2024 9:39 AM EST Encounter for Depo-Provera contraception PAP SMEAR Routine 05/30/2023 9:21 AM EDT HEPATITIS C AB W/REFL TO HCV RNA, QN, PCR Routine 12/20/2022 11:12 AM EDT Abnormal uterine bleeding HIV ANTIBODY/ANTIGEN ([place] DPH) Routine 12/20/2022 11:12 AM EDT HPV MRNA E6/E7 REFLEX TO HPV 16, 18/45 Routine 03/15/2022 10:17 AM EST from Last 3 Months or Most Recently Relevant to Health Maintenance Results * POCT Urine (02/07/2024 9:39 AM EST) Preg Test, Ur Negative Negative, Indeterminate, None Detected, Invalid, Specimen unsatisfactory for evaluation, Weakly Positive QC Media Lot # [id number] Lot# Expiration Date [id number] Urine 02/07/2024 9:39 AM EST Suzanna Mcallister MD POINT OF CARE TEST ENTER /EDIT ORDERABLES Final Result * Pap Smear (05/30/2023 9:21 AM EDT) 05/30/2023 9:21 AM EDT 06/01/2023 6:30 AM EDT Narrative [facility] - 06/19/2023 1:09 PM EDT ----- ------- Name: Laure Dunaway ? Age/Sex: 27/F ? : 1995 Unit#: [id number] ?? Attend Dr: Corky Beltre MD ?Re05/30/23 ?Status: DEP REF ? Location: HO.LNP ?Disch: ? ----- ------- SPEC : [id number] ? RECD: 06/01/23 ? STATUS: ??SOUT ? REQ NUM: [id number] ? AUDRA: 05/30/23 ? SUBM DR: Corky Beltre MD ? ENTERED: ??06/01/23 ?SP TYPE: Pap Smr ?OTHR DR: Suzanna Mcallister MD ? ORDERED: ??Pap Smear, PAP path review ? Interpretation ?? General Category: ? Epithelial cell abnormality. ?? Adequacy: ? Endocervical component present. ?? Interpretation: ? Low grade squamous intraepithelial lesion (SHAWNA I), cannot exclude a ?? high grade dysplasia. ?Limited squamous cellularity. ?Abundant blood. ?Clinical Information LMP: 03/2023 Previous PAP test: Unknown date/findings ? Material Received ?? ThinPrep-Cervical Copies To: ?? Suzanna Mcallister MD ?? [address] [facility] ?? [place] [address] ? Corky Beltre MD ?? [address] [facility] [address] [place] [facility] ?? [place] [address] ?? [phone] ----- ------- Signed (signature on file) Madina Mariela 06/19/23 1309 ? ----- ------- ? END OF REPORT ? us Generic External Data Provider LAB CYTOLOGY MARSHA WALLACE Final Result [facility] [address] [place] [address] [phone] * HIV Ab/Ag (CODEY DP) (12/20/2022 11:12 AM EDT) Pathologist [facility] HIV AB/AG Nonreactive Nonreactive [facility] Comment:HIV-1 p24 Ag and/or HIV-1/HIV-2 Ab not detected.A test result that is nonreactive does not exclude thepossibility of exposure to or infection with HIV-1 and/orHIV-2. Nonreactive results in this assay for individualswith prior exposure to HIV-1 and/or HIV-2 may be due toantigen and antibody levels that are below the limit ofdetection of this assay.The [employer] HIV Ag/Ab Combo assay result andsupplemental assay results should be interpreted inconjunction with the patient's clinical presentation,history and other laboratory results. If the results areinconsistent with clinical evidence, additional testing issuggested to confirm the result. 12/20/2022 11:1 2 AM EDT 12/20/2022 1:24 PM EDT [facility] LAB BLOOD ORDERABLES Amy l Result Performing Organization Address City/[facility]/ZIP Co de Phone Number [facility] [address] [place] [phone] * Hepatitis C Antibody with Reflex to HCV, RNA, Quantitative, Real-Time PCR (12/20/2022 11:12 AM EDT) Pathologist [facility] Hepatitis C Antibody Nonreactive Nonreactive [facility] Comment:Antibodies to HCV no t detected; does not exclude early acuteHCV infection. Blood Venous blood specimen / Unknown 12/20/2022 11:12 AM EDT 12/20/2022 1:24 PM EDT [facility] LAB BLOOD ORDERABLES Amy l Result Performing Organization Address City/[facility]/ZIP Co de Phone Number [facility] [address] [place] [phone] * (ABNORMAL) HPV mRNA E6/E7 w/Reflex to HPV Genotypes 16, 18/45 (03/15/2022 10:17 AM EST) HPV nRNA E6/E7 Detected(A ) Not Detected [facility] Comment:Methodology: Transcr iption-Mediated AmplificationThis assay detects E6/E7 viral messenger RNA (mRNA) from 14high-risk HPV types (16,18,31,33,35,39,45,51,52,56,58,59,66,68).Cervical sources are required for HPV testing.If a vaginal source from a patient who has had atotal hysterectomy with removal of cervix wassubmitted, please contact the testing laboratoryfor alternative testing options.For additional information, please refer [email or web address]/faq/FTE707y4(This link if provided for information/educational purposes only.)THIS TEST WAS PERFORMED AT:[facility] [place] [address] (1)[place] [address]QLOZAMYCHAL SIMON MD HPV 16 RNA NOT DETECTED NOT DETECTED [facility] HPV 18/45 RNA NOT DETECTED NOT DETECTED [facility] Comment:Methodology: Transcr iption Mediated AmplificationCervical sources are required for HPV testing.If a vaginal source from a patient who has had atotal hysterectomy with removal of cervix wassubmitted, please contact the testing laboratoryfor alternative testing options.THIS TEST WAS PERFORMED AT:[facility] [place] [address] (1)[place] [address]IZBDWMYCHAL SIMON MD 03/15/2022 10:1 7 AM EST 03/15/2022 3:45 PM EST us [facility] External Provider LAB CYT OLOGY ORDERABLES Final Result [facility] [address] [place] [phone] from Last 3 Months or Most Recently Relevant to Health Maintenance Insurance [facility] STANDARD Care Teams Locator Relationship Specialty Start Date End Date Suzanna Mcallister MD [address] [place] [phone] PCP - General Family Medicine 01/28/19 Lyn Shelton Car Wash ManagerTower Truck Driver 08/17/23
--- OUTSIDE RECORDS SUMMARY | 2024-04-12 12:00 | XMS_ITS | Encounter Summary ---
Author Organization [employer] Address [address] [place] [address] 7t [place] [address] Care Team Providers Care Instructional Technology Facilitator Name Role Phone Suzanna Mcallister MD Primary Care Provider + Encounter Details Date Type Department Care Team (Late Contact Info) Description 09/20/2022 Abstract [facility] [address] [place] [phone] Suzanna Mcallister MD [address] [place] [address] Social History Tobacco Use Types Packs/Day Years Used Date Smoking Tobacco: Never Smokeless Tobacco: Never Alcohol Use Standard Drinks/Week Comments Never 0 (1 standard drink = 0.6 oz pur e alcohol) PHQ-2 Answer Date Recorded Patient Health Questionnaire-2 Score 0 09/16/2022 Comments Unknown Sex and Gender Information Value Date Recorded Sex Assigned at Female 12/27/2021 10:32 AM EDT Legal Sex Female 10:32 AM EDT Gender Identity Female 12/27/2021 10:32 AM EDT Sexual Orientation Straight 12/27/2021 10 :32 AM EDT documented as of this encounter Plan of Treatment Upcoming Encounters Date Type Department Care Team (Late Contact Info) Description 04/29/2024 9:30 AM EST Clinical Support [address] [phone] 05/24/2024 9:15 AM EDT Office Visit [address] [phone] Suzanna Mcallister MD [address] [place], [place] [phone] documented as of this encounter Visit Diagnoses Not on filedocumented in this encounter Care Teams Instructional Technology Facilitator Relationship Specialty Start Date End Date Szuanna Mcallister MD [address] [place], [place] [phone] PCP - General Family Medicine 01/28/19 Lyn Shelton Epic Cupid SpecialistsCrankshaft Grinder 08/17/23 documented as of this encounter
--- OUTSIDE RECORDS SUMMARY | 2024-04-12 12:00 | XMS_ITS | Encounter Summary ---
Author Organization [employer] Address [address] [place] [address] 7t [place] [address] Care Team Providers Care Senior Cytotechnologist Name Role Phone Suzanna Mcallister MD Primary Care Provider + Encounter Details Date Type Department Care Team (Latest Contact Info) Description 09/07/2021 Abstract [facility] CONVERSIONS Dental, Provider, DDS Social History Tobacco [...] Description 04/29/2024 9:30 AM EST Clinical Support [facility] [address] [place] [address] [phone] 05/24/2024 9:15 AM EDT Office Visit [facility] [address] [place] [address] [phone] Suzanna Mcallister MD [address] [place] [address] [phone] documented as of this encounter Visit Diagnoses Not on filedocumented in this encounter Care Teams Senior Cytotechnologist Relationship Specialty Start Date End Date Suzanna Mcallister MD [address] [place] [phone] PCP - General Family Medicine 01/28/19 Lyn Shelton Group Exercise Class InstructorRice Dryer Mechanic 08/17/23 documented as of this encounter
--- OUTSIDE RECORDS SUMMARY | 2024-04-12 12:00 | XMS_ITS | Encounter Summary ---
Author Organization [employer] Address [address] [place] [address] [address] [address] Care Team Providers Care Flat Knitter Helper Name Role Phone Suzanna Mcallister MD Primary Care Provider + Reason for Visit * Reason Comments Med Refill Encounter Details Date Type Department Care Team (Late st Contact Info) Description 11/28/2022 Refill [facility] [address] [place] [address] Suzanna Mcallister MD [address] [place], [place] [phone] Social History Tobacco Use Types Packs/Day Years Used Date Smoking Tobacco: Never Smokeless Tobacco: Never Alcohol Use Standard Drinks/Week Comments Never 0 (1 standard drink = 0.6 oz pur e alcohol) Depression Answer Date Recorded Patient Health Questionnaire-9 Score 18 11/30/2022 Depression Answer Date Recorded Patient Health Questionnaire-2 [...] Description 04/29/2024 9:30 AM EST Clinical Support [facility] [address] [place], [place] [phone] 05/24/2024 9:15 AM EDT Office Visit [facility] [address] [place] [address] Suzanna Mcallister MD [address] [place] [phone] documented as of this encounter Visit Diagnoses Not on filedocumented in this encounter Care Teams Flat Knitter Helper Relationship Specialty Start Date End Date Suzanna Mcallister MD [address] [place] [phone] PCP - General Family Medicine 01/28/19 Lyn Shelton Event Planning ManagerSupply Chain Program Manager 08/17/23 documented as of this encounter
--- OUTSIDE RECORDS SUMMARY | 2024-04-12 12:00 | XMS_ITS | Encounter Summary ---
Author Organization [employer] Address [address] [place] [address] 7t [place] [address] Care Team Providers Care Joint Cleaning Machine Operator Name Role Phone Suzanna Mcallister MD Primary Care Provider + Encounter Details Date Type Department Care Team (Late st Contact Info) Description 06/28/[address] [facility]S [address] [place] [address] Natalia Blanco LPN Social History Tobacco Use Types Packs/Day Years [...] 04/29/2024 9:30 AM EST Clinical Support [facility] [address] [place] [address] [phone] 05/24/2024 9:15 AM EDT Office Visit [facility] [address] [place] [address] [phone] Suzanna Mcallister MD [address] [place] [address] [phone] documented as of this encounter Visit Diagnoses Not on filedocumented in this encounter Care Teams Joint Cleaning Machine Operator Relationship Specialty Start Date End Date Suzanna Mcallister MD [address] [place] [phone] PCP - General Family Medicine 01/28/19 Lyn Shelton Beef TaggerRoofing Supervisor 08/17/23 documented as of this encounter
--- OUTSIDE RECORDS SUMMARY | 2024-04-12 12:00 | XMS_ITS | Encounter Summary ---
Author Organization [facility] Address [address] [place] [address] 7t [place] [address] Care Team Providers Care Cryptological Technician Name Role Phone Suzanna Mcallister MD Primary Care Provider + Encounter Details Date Type Department Care Team (Late st Contact Info) Description 07/13/2022 Orders Only [facility] [address] [place] [address] [phone] Melany Omer RN [address] [place] [address] [phone] Social History Tobacco Use Types Packs/Day Years [...] Description 04/29/2024 9:30 AM EST Clinical Support [address] [phone] 05/24/2024 9:15 AM EDT Office Visit [address] [phone] Suzanna Mcallister MD [address] [place] [address] [phone] documented as of this encounter Procedures Procedure Name Priority Date/Time Associated Diagnosis Comments BIOPSY CERVIX Routine 07/07/2022 12:00 AM EDT documented in this encounter Results * Biopsy cervix (07/07/2022 12:00 AM EDT) us Historical Provider MD IN CLINIC/BEDSIDE ORDERAB LES Final Result Performing Organization Address City/State/[facility] Co de Phone Number [facility] [address] [place] [address] [phone] documented in this encounter Visit Diagnoses Not on filedocumented in this encounter Care Teams Cryptological Technician Relationship Specialty Start Date End Date Suzanna Mcallister MD [address] [place] [phone] PCP - General Family Medicine 01/28/19 Lyn Shelton Long Chain Dyeing Machine OperatorBuckle Strap Drum Operator 08/17/23 documented as of this encounter
--- OUTSIDE RECORDS SUMMARY | 2024-04-12 12:00 | XMS_ITS | Encounter Summary ---
Author Organization [employer] Address [address] [place] [address] 7t [place] [address] Care Team Providers Care Director Personal Name Role Phone Suzanna Mcallister MD Primary Care Provider + Encounter Details Date Type Department Care Team (Late st Contact Info) Description 05/30/2022 Orders Only [facility] [address] [place] [address] Natalia Blanco LPN Social History Tobacco Use [...] 9:30 AM EST Clinical Support [facility] [address] [place] [address] [phone] 05/24/2024 9:15 AM EDT Office Visit [facility] [address] [place] [address] [phone] Suzanna Mcallister MD [address] [place] [address] [phone] documented as of this encounter Visit Diagnoses Not on filedocumented in this encounter Care Teams Director Personal Relationship Specialty Start Date End Date Suzanna Mcallister MD [address] [place] [address] [phone] PCP - General Family Medicine 01/28/19 Lyn Shelton Nurse TechnicianAir Conditioning Mechanic 08/17/23 documented as of this encounter
== END 2024-04-12 11:04 | disposition home or self-care (01) ==
LOC: HO.US 11:03
PROVIDERS: PCP Internal Medicine; Visit Provider Obstetrics & Gynecology
DX: D25.9 Leiomyoma of uterus, unspecified (principal)
CPT/HCPCS: 76856

== ENCOUNTER 2024-04-18 08:50 | Outpatient (REF) | payer MEDICAID, SELFPAY ==
--- OUTSIDE RECORDS SUMMARY | 2024-04-18 10:20 | XMS_ITS | Encounter Summary ---
Author Organization [employer] Address [address] [facility] 7t [place] [address] Care Team Providers Care Echo Technologist Name Role Phone Suzanna Mcallister MD Primary Care Provider + Reason for Visit * Reason Comments Med Refill Encounter Details Date Type Department Care Team (Late st Contact Info) Description 05/01/[address] [facility] [address] [place] [address] Kaylee Kingston, [facility] [address] [place], [place] [phone] Social History Tobacco Use Types Packs/Day Years [...] 04/29/2024 9:30 AM EST Clinical Support [facility] [address] [place] [phone] 05/24/2024 9:15 AM EDT Office [address] [facility] [address] [place] [phone] Suzanna Mcallister MD [address] [place] [phone] documented as of this encounter Visit Diagnoses Not on filedocumented in this encounter Additional Health Concerns Assessment Noted Time PHQ-9 Depression Total Score: 18 023 9:08 AM EDT documented as of this encounter Care Teams Echo Technologist Relationship Specialty Start Date End Date Suzanna Mcallister MD [address] [place] [phone] PCP - General Family Medicine 01/28/19 Lyn Shelton Cashier Host/HostessLaundry Worker 08/17/23 documented as of this encounter
--- OUTSIDE RECORDS SUMMARY | 2024-04-18 10:20 | XMS_ITS | Encounter Summary ---
Author Organization [employer] Address [address] [facility] 7t [place] [address] Care Team Providers Care Production Truck Driver Name Role Phone Suzanna Mcallister MD Primary Care Provider + Reason for Visit * Reason Onset Date Comments Med Refill 03/08/2024 Encounter Details Date Type Department Care Team (Late st Contact Info) Description 03/08/2024 Refill [facility] [address] [place], [place] [phone] Suzanna Mcallister MD 230 [place], [place] [phone] Mild intermittent asthma, unspecified whether complicated Social [...] Description 04/29/2024 9:30 AM EST Clinical Support [facility] [address] [place] [phone] 05/24/2024 9:15 AM EDT Office Visit [address] [address] Suzanna Mcallister MD [address] [place] [phone] documented as of this encounter Visit Diagnoses Diagnosis Mild intermittent asthma, unspecified whether complicated documented in this encounter Additional Health Concerns Assessment Noted Time PHQ-9 Depression Total Score: 18 023 9:08 AM EDT documented as of this encounter Care Teams Production Truck Driver Relationship Specialty Start Date End Date Suzanna Mcallister MD [address] [place] [phone] PCP - General Family Medicine 01/28/19 Lyn Shelton Director Of Diversity And InclusionDiet Aid 08/17/23 documented as of this encounter
--- OUTSIDE RECORDS SUMMARY | 2024-04-18 10:20 | XMS_ITS | Encounter Summary ---
Author Organization [employer] Address [address] [facility] 7t [place] [address] Care Team Providers Care Landscape Supervisor Name Role Phone Suzanna Mcallister MD Primary Care Provider + Reason for Visit * Reason Onset Date Comments Med Refill 11/20/2023 Encounter Details Date Type Department Care Team ([facility] st Contact Info) Description 11/20/2023 Telephone [facility] [address] [place], [place] [phone] Suzanna Mcallister MD [address] [place], [place] [phone] Med Refill Social History Tobacco Use Types [...] 150 MG/ML injection To be sent to: [facility] documented in this encounter Plan of Treatment Upcoming Encounters Date Type Department Care Team (Late st Contact Info) Description 04/29/2024 9:30 AM EST Clinical Support [facility] [address] [place] [phone] 05/24/2024 9:15 AM EDT Office Visit [facility] [address] [place] [phone] Suzanna Mcallister MD [address] [place] [address] documented as of this encounter Visit Diagnoses Not on filedocumented in this encounter Additional Health Concerns Assessment Noted Time PHQ-9 Depression Total Score: 18 023 9:08 AM EDT documented as of this encounter Care Teams Landscape Supervisor Relationship Specialty Start Date End Date Suzanna Mcallister MD [address] [place] [phone] PCP - General Family Medicine 01/28/19 Lyn Shelton Light Armored Reconnaissance OfficerAccounts Payable Coordinator 08/17/23 documented as of this encounter
--- OUTSIDE RECORDS SUMMARY | 2024-04-18 10:20 | XMS_ITS | Encounter Summary ---
Author Organization [employer] Address [address] [facility] 7t [place] [address] Care Team Providers Care Brace Maker Name Role Phone Suzanna Mcallister MD Primary Care Provider + Reason for Visit * Reason Onset Date Comments Electric WheelChair Request 02/02/2023 Encounter Details Date Type Department Care Team ([facility] st Contact Info) Description 02/02/2023 Telephone [facility] [address] [place], [place] [phone] Suzanna Mcallister MD [address] [place], [place] [phone] Electric WheelChair Request Social History Tobacco Use [...] Wheelchair. Pt states she was advised by [employer] that it was time for a new electric wheelchair. 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
--- OUTSIDE RECORDS SUMMARY | 2024-04-18 10:21 | XMS_ITS | Clinical Summary ---
Author Organization [employer] Address [address] [place] [address] 7t [place] [address] Care Team Providers Care Lead Electrical Controls Engineer Name Role Phone Suzanna Mcallister MD [...] 25 Active ergocalciferol (Vitamin D2) 1.25 MG (33219 UT) capsule TAKE 1 CAPSULE BY MOUTH [...] Department Care Team Description 04/12/2024 Orders Only [facility] External Provider, [facility] 04/04/2024 Travel 03/29/2024 Patient Outreach [facility] [address] [place] [address] 11290 Suzanna Mcallister MD Pre-visit Planning (SDOH screening negative and tobacco screening negative) 03/08/2024 Refill [facility] [address] [place] [address] 52654 Suzanna Mcallister MD Mild intermittent asthma, unspecified whether complicated 03/08/2024 Refill [facility] [address] [place] [address] 44617 Suzanna Mcallister MD Mild intermittent asthma, unspecified whether complicated 03/05/2024 Refill [facility] P[facility] [address] [place] [address] Suzanna Mcallister MD Anemia due to other cause, not classified 02/11/2024 Refill [facility] [address] [place] [address] [phone] Suzanna Mcallister MD 02/09/[address] [address] [place] Chart prep 02/07/2024 9:30 AM EST Clinical Support [facility] [address] [place] [address] 476[address] Mariana Yancey, JOSE EDUARDO Encounter for Depo-Provera contraception 02/07/2024 Travel 02/02/2024 Patient Outreach [facility] [address] [place] [address] 22894 Suzanna Mcallister MD Pre-visit Planning (SDOH screening [...] Description 04/29/2024 9:30 AM EST Clinical Support [facility] [address] [place] [address] [phone] 05/24/2024 9:15 AM EDT Office Visit [facility] [address] [place] [address] 165[address] Suzanna Mcallister MD [address] [place] [address] Health Maintenance Due Date Last Done Comments [...] EST Narrative 04/13/2024 8:23 AM EST ? [facility] ?[address] ?[place] [address] ? Ultrasound Report ? Signed ? Patient: Laure Dunaway ?MR#: [id number] ?? [id number] ? : 1995 ?Acct:[id number] ? Age/Sex: 28 / F ?ADM Date: 04/12/24 ? Loc: HO.US ? Attending Dr: Corky Beltre MD ? Ordering Physician: Corky Beltre MD ?? Date of Service: 04/12/24 ?? Procedure(s): US pelvic complete ?? Accession Number(s): [id number] ? cc: Suzanna Mcallister MD; Corky Beltre [...] ? DD/ 1 ? TD/TT: 04/13/24821 ? Shank Pinner: ? Procedure Note Donsergioter, Image - 04/13/2024 [place] [address] Ultrasound Report Signed Patient: Laure DunawayMR#: [id number] : 1995Acct:[id number] Age/Sex: 28 FADM Date: 04/12/24 Loc: HO.US Attending Dr: Corky Beltre MD Ordering Physician: Corky Beltre MD Date of Service: 04/12/24 Procedure(s): US pelvic complete Accession Number(s): [id number] cc: Suzanna Mcallister MD; Corky Beltre MD [...] in OV> 04/13/24821 DD/ 1 TD/TT: 04/13/24821 Shank Pinner: [facility] External Provider IMG US PROCEDURES Edited Result - Final * POCT Urine (02/07/2024 9:39 AM EST) Preg Test, Ur Negative Negative, Indeterminate, None Detected, Invalid, Specimen unsatisfactory for evaluation, Weakly Positive QC Media Lot # [id number] Lot# Expiration Date [id number] Urine 02/07/2024 9:39 AM EST Suzanna Mcallister MD POINT OF CARE TEST ENTER /EDIT ORDERABLES Final Result * Pap Smear (05/30/2023 9:21 AM EDT) 05/30/2023 9:21 AM EDT 06/01/2023 6:30 AM EDT Sana [facility] - 06/19/2023 1:09 PM EDT ----- ------- Name: Laure Dunaway ? Age/Sex: 27/F ? : 1995 Unit#: [id number] ?? Attend Dr: Corky Beltre MD ?Re05/30/23 ?Status: DEP REF ? Location: HO.LNP ?Disch: ? ----- ------- SPEC : [id number] ? RECD: 06/01/23 ? STATUS: ??SOUT ? REQ NUM: [id number] ? AUDRA: 05/30/23 ? SUBM DR: Corky [...] To: ?? Suzanna Mcallister MD ?? [address] [facility] ?? [place] [address] ? Corky Beltre MD ?? [address] [facility] [address] [place] [facility] [place] ?? [place] [address] ?? [phone] ----- ------- Signed (signature on file) Madina Chunky 06/19/23 1309 ? ----- ------- ? END OF REPORT ? us Generic External Data Provider LAB CYTOLOGY MARSHA WALLACE Final Result [facility] [address] [place] [address] [phone] * HIV Ab/Ag (CODEY TAYLOR) (12/20/2022 11:12 AM EDT) HIV AB/AG Nonreactive Nonreactive [facility] Comment:HIV-1 p24 Ag and/or HIV-1/HIV-2 Ab not detected.A test result that is nonreactive does not exclude thepossibility of exposure to or infection with HIV-1 and/orHIV-2. Nonreactive results in this assay for individualswith prior exposure to HIV-1 and/or HIV-2 may be due toantigen and antibody levels that are below the limit ofdetection of this assay.The [employer] HIV Ag/Ab Combo assay result andsupplemental assay results should be interpreted inconjunction with the patient's clinical presentation,history and other laboratory results. If the results areinconsistent with clinical evidence, additional testing issuggested to confirm the result. 12/20/2022 11:1 2 AM EDT 12/20/2022 1:24 PM EDT [facility] BLOOD ORDERABLES Amy l Result Performing Organization Address [facility]/ZIP Co de Phone Number [facility] [address] [place] [phone] * Hepatitis C Antibody with Reflex to HCV, RNA, Quantitative, Real-Time PCR (12/20/2022 11:12 AM EDT) Pathologist [facility] Hepatitis C Antibody Nonreactive Nonreactive [facility] Comment:Antibodies to HCV no t detected; does not exclude early acuteHCV infection. Blood Venous blood specimen / Unknown 12/20/2022 11:12 AM EDT 12/20/2022 1:24 PM EDT [facility] LAB BLOOD ORDERABLES Amy l Result Performing Organization Address [facility] Co de Phone Number [facility] [address] [place] [phone] * (ABNORMAL) HPV mRNA E6/E7 w/Reflex to HPV Genotypes 16, 18/45 (03/15/2022 10:17 AM EST) HPV nRNA E6/E7 Detected(A ) Not Detected [facility] Comment:Methodology: Transcr iption-Mediated AmplificationThis assay detects E6/E7 viral messenger RNA (mRNA) from 14high-risk HPV types (16,18,31,33,35,39,45,51,52,56,58,59,66,68).Cervical sources are required for HPV testing.If a vaginal source from a patient who has had atotal hysterectomy with removal of cervix wassubmitted, please contact the testing laboratoryfor alternative testing options.For additional information, please refer [email or web address].[employer]/faq/PJB188r8(This link if provided for information/educational purposes only.)THIS TEST WAS PERFORMED AT:[facility] [place] [address] (1)[place] [address]RHRCZKALEY SIMON MD HPV 16 RNA NOT DETECTED NOT DETECTED [facility] HPV 18/45 RNA NOT DETECTED NOT DETECTED [facility] Comment:Methodology: Transcr iption Mediated AmplificationCervical sources are required for HPV testing.If a vaginal source from a patient who has had atotal hysterectomy with removal of cervix wassubmitted, please contact the testing laboratoryfor alternative testing options.THIS TEST WAS PERFORMED AT:[facility] [place] [address] (NL1)[place], [place] KARENA SIMON MD 03/15/2022 10:1 7 AM EST 03/15/2022 3:45 PM EST [facility] External Provider LAB CYT OLOGY ORDERABLES Final Result [facility] [address] [place] [address] [phone] from Last 3 Months or Most Recently Relevant to Health Maintenance Insurance [facility] Care Teams Lead Electrical Controls Engineer Relationship Specialty Start Date End Date Suzanna Mcallister MD [address] [place] [address] PCP - General Family Medicine 01/28/19 Lyn Shelton Parking Enforcement OfficerTechnical Training Instructor 08/17/23
--- OUTSIDE RECORDS SUMMARY | 2024-04-18 10:21 | XMS_ITS | Encounter Summary ---
Author Organization [employer] Address [address] [place] [address] 7t [place] [address] Care Team Providers Care Terrazzo Mechanic Name Role Phone Suzanna Mcallister MD Primary Care Provider + Encounter Details Date Type Department Care Team (Late st Contact Info) Description 06/28/[address] [facility] PEDS [address] [place] [address] Natalia Blanco LPN Social History Tobacco Use [...] EST Clinical Support [facility] [address] [place] [address] [phone] 05/24/2024 9:15 AM EDT Office Visit [facility] [address] [place] [address] [phone] Suzanna Mcallister MD [address] [place] [address] [phone] documented as of this encounter Visit Diagnoses Not on filedocumented in this encounter Care Teams Terrazzo Mechanic Relationship Specialty Start Date End Date Suzanna Mcallister MD [address] [place] [address] PCP - General Family Medicine 01/28/19 Lyn Shelton Package CollectorAirport Duty Manager 08/17/23 documented as of this encounter
--- OUTSIDE RECORDS SUMMARY | 2024-04-18 10:21 | XMS_ITS | Encounter Summary ---
Author Organization [employer] Address [address] [facility] 7t [place] [address] Care Team Providers Care Brine Mixer Operator Name Role Phone Suzanna Mcallister MD [...] 9:30 AM EST Clinical Support [facility] [address] [place] [address] 05/24/2024 9:15 AM EDT Office Visit [address] [address] Suzanna Mcallister MD [address] [place] [address] documented as of this encounter Visit Diagnoses Not on filedocumented in this encounter Additional Health Concerns Assessment Noted Time PHQ-9 Depression Total Score: 18 023 9:08 AM EDT documented as of this encounter Care Teams Brine Mixer Operator Relationship Specialty Start Date End Date Suzanna Mcallister MD [address] [place] [address] 316[address] PCP - General Family Medicine 01/28/19 Lyn Shelton Proof Load MechanicPayroll Machine Operator 08/17/23 documented as of this encounter
--- OUTSIDE RECORDS SUMMARY | 2024-04-18 10:21 | XMS_ITS | Encounter Summary ---
Author Organization [employer] Address [address] [place] [address] 7t [place] [address] Care Team Providers Care Umbrella Cutter Name Role Phone Suzanna Mcallister MD Primary Care Provider + Encounter Details Date Type Department Care Team (Latest Contact Info) Description 09/07/2021 Abstract [facility] CONVERSIONS Dental, Provider, DDS Social History [...] Description 04/29/2024 9:30 AM EST Clinical Support [facility] [address] [place] [address] [phone] 05/24/2024 9:15 AM EDT Office Visit [facility] [address] [place] [address] [phone] Suzanna Mcallister MD [address] [place] [address] [phone] documented as of this encounter Visit Diagnoses Not on filedocumented in this encounter Care Teams Umbrella Cutter Relationship Specialty Start Date End Date Suzanna Mcallister MD [address] [place] [phone] PCP - General Family Medicine 01/28/19 Lyn Shelton Shearing Machine FeederInside Sales Engineer 08/17/23 documented as of this encounter
--- OUTSIDE RECORDS SUMMARY | 2024-04-18 10:21 | XMS_ITS | Encounter Summary ---
Author Organization [employer] Address [address] [place] [address] 7t [place] [address] Care Team Providers Care Golf Course Keeper Name Role Phone Suzanna Mcallister MD Primary Care Provider + Reason for Visit * Reason Onset Date Comments Appointment Request 04/08/2022 Encounter Details Date Type Department Care Team ([facility] st Contact Info) Description 04/08/2022 Telephone [facility] [address] [place], [place] [phone] Suzanna Mcallister MD [address] [place], [place] [phone] Appointment Request Social History Tobacco Use Types [...] Description 04/29/2024 9:30 AM EST Clinical Support [address] [phone] 05/24/2024 9:15 AM EDT Office Visit [address] [address] Suzanna Mcallister MD [address] [place] [address] documented as of this encounter Visit Diagnoses Not on filedocumented in this encounter Care Teams Golf Course Keeper Relationship Specialty Start Date End Date Suzanna Mcallister MD [address] [place] [address] [phone] PCP - General Family Medicine 01/28/19 Lyn Shelton Gis Software EngineerMine Safety Engineer 08/17/23 documented as of this encounter
--- OUTSIDE RECORDS SUMMARY | 2024-04-18 10:21 | XMS_ITS | Clinical Summary ---
Author Organization [facility] Address [address] [place] [address] Care Team Providers Care Soft Sugar Operator Head Name Role Phone Suzanna Mcallister MD Primary Care Provider + [phone] Allergies No known active allergies Medications Medication [...] this topic Medical Devices Implanted Type Area Lehr Stripper Device Identifier Shelf Expiration Date Model / Serial / Lot Screw Lcking 5.8jqi20ev [facility] [id number] - [id number] Implanted:Qty: 1 on 09/03/2022 by Elder Delgado MD at [facility] and [facility] Left: Femur REEMA TRAUMA [id number] / / Screw Lcking [id number] Stry-Tram [id number] - [id number] Implanted:Qty: 1 on 09/03/2022 by Elder Delgado MD at [facility] and [facility] Left: Femur REEMA TRAUMA [id number] / / Screw Locking 5x24mm Stry-Tram [id number] - [id number] Implanted:Qty: 2 on 09/03/2022 by Elder Delgado MD at [facility] and [facility] Left: Femur REEMA TRAUMA [id number] / / Screw Lcking [id number] Stry-Tram [id number] - [id number] Implanted:Qty: 1 on 09/03/2022 by Elder Delgado MD at [facility] and [facility] Left: Femur REEMA TRAUMA [id number] / / Screw Cortex Ti [id number] Stry-Tram [id number] - [id number] Implanted:Qty: 1 on 09/03/2022 by Elder Delgado MD at [facility] and [facility] Left: Femur REEMA TRAUMA [id number] / / Reema 5.0mm Compression , Narrow 14 Hole Plate Implanted:Qty: 1 on 09/03/2022 by Elder Delgado MD at [facility] and [facility] Left: Femur [id number] / / Description:REF# [id number] Advance Directives For more information, please contact: [phone] Latest Code Status on File Code Status Date Activated Date Inactivated Comments Full Code 09/02/2022 6:30 PM 09/05/2022 7:13 PM This c ode status was ascertained in the following way: discussion with patient . Care Teams Soft Sugar Operator Head Relationship Specialty Start Date End Date Suzanna Mcallister MD [address] [place] [phone] PCP - General Family Medicine 09/02/22
--- OUTSIDE RECORDS SUMMARY | 2024-04-18 10:21 | XMS_ITS | Encounter Summary ---
Author Organization [employer] Address [address] [place] [address] 7t [place] [address] Care Team Providers Care Compliance Representative Name Role Phone Suzanna Mcallister MD Primary Care Provider + Encounter Details Date Type Department Care Team (Late Contact Info) Description 09/20/2022 Abstract [facility] [address] [place] [phone] Suzanna Mcallister MD [address] [place] [address] Social History Tobacco Use Types Packs/Day Years [...] Description 04/29/2024 9:30 AM EST Clinical Support [address] [phone] 05/24/2024 9:15 AM EDT Office Visit [address] [phone] Suzanna Mcallister MD [address] [place], [place] [phone] documented as of this encounter Visit Diagnoses Not on filedocumented in this encounter Care Teams Compliance Representative Relationship Specialty Start Date End Date Suzanna Mcallister MD [address] [place], [place] [phone] PCP - General Family Medicine 01/28/19 Lyn Shelton Direct Service ProviderVolunteer Services Specialist 08/17/23 documented as of this encounter
--- OUTSIDE RECORDS SUMMARY | 2024-04-18 10:21 | XMS_ITS | Encounter Summary ---
Author Organization [employer] Address [address] [facility] 7t [place] [address] Care Team Providers Care Stationary Plant Operators Name Role Phone Suzanna Mcallister MD Primary Care Provider + Reason for Visit * Reason Comments Pre-visit Planning SDOH screening negat sal and tobacco screening negative Encounter Details Date Type Department Care Team ([facility] st Contact Info) Description 03/29/2024 Patient Outreach [facility] [address] [place], [place] [phone] Suzanna Mcallister MD [address] [place], [place] [phone] Pre-visit Planning (SDOH screening negative and tobacco [...] Description 04/29/2024 9:30 AM EST Clinical Support [facility] [address] [place] [address] 05/24/2024 9:15 AM EDT Office Visit [facility] [address] [place] [address] Suzanna Mcallister MD [address] [place] [address] documented as of this encounter Visit Diagnoses Not on filedocumented in this encounter Additional Health Concerns Assessment Noted Time PHQ-9 Depression Total Score: 18 023 9:08 AM EDT documented as of this encounter Care Teams Stationary Plant Operators Relationship Specialty Start Date End Date Suzanna Mcallister MD [address] [place] [address] PCP - General Family Medicine 01/28/19 Lyn Shelton Underwriting InternEvaluation Specialist 08/17/23 documented as of this encounter
--- OUTSIDE RECORDS SUMMARY | 2024-04-18 10:21 | XMS_ITS | Encounter Summary ---
Author Organization [employer] Address [address] [place] [address] 7t [place] [address] Care Team Providers Care Street Light Cleaner Name Role Phone Suzanna Mcallister MD Primary Care Provider + Encounter Details Date Type Department Care Team (Latest Contact Info) Description 09/04/2018 Abstract [facility] CONVERSIONS Dental, Provider, DDS Social History Tobacco [...] Description 04/29/2024 9:30 AM EST Clinical Support [facility] [address] [place] [address] [phone] 05/24/2024 9:15 AM EDT Office Visit [facility] [address] [place] [address] [phone] Suzanna Mcallister MD [address] [place] [address] [phone] documented as of this encounter Visit Diagnoses Not on filedocumented in this encounter Care Teams Street Light Cleaner Relationship Specialty Start Date End Date Suzanna Mcallister MD [address] [place] [address] PCP - General Family Medicine 01/28/19 Lyn Shelton Ironworker ApprenticeChipping Machine Operator 08/17/23 documented as of this encounter
--- OUTSIDE RECORDS SUMMARY | 2024-04-18 10:21 | XMS_ITS | Encounter Summary ---
Author Organization [employer] Address [address] [facility] 7t [place] [address] Care Team Providers Care Cnc Programmer Name Role Phone Suzanna Mcallister MD Primary Care Provider + Encounter Details Date Type Department Care Team (Late st Contact Info) Description 04/12/2024 Orders Only [facility] External Provider, [facility] Social History Tobacco Use Types Packs/Day Years [...] Description 04/29/2024 9:30 AM EST Clinical Support [facility] [address] [place] [phone] 05/24/2024 9:15 AM EDT Office Visit [address] [address] Suzanna Mcallister MD [address] [place] [address] documented as of this encounter Procedures Procedure Name Priority Date/Time Associated Diagnosis Comments US PELVIS COMPLETE Routine 04/13/2024 8: 22 AM EST documented in this encounter Results * Us Pelvis complete (04/13/2024 8:22 AM EST) Anatomical Region Laterality Modality Pelvis Ultrasound 04/13/2024 8:22 AM EST Narrative 04/13/2024 8:23 AM EST ? [facility] ?[address] ?[place] [address] ? Ultrasound Report ? Signed ? Patient: Laure Dunaway ?MR#: [id number] ?? [id number] ? : 1995 ?Acct:[id number] ? Age/Sex: 28 / F ?ADM Date: 02/14/25 ? Loc: HO.US ? Attending Dr: Corky Beltre MD ? Ordering Physician: Corky Beltre MD ?? Date of Service: 04/12/24 ?? Procedure(s): US pelvic complete ?? Accession Number(s): [id number] ? cc: Suzanna Mcallister MD; Corky Beltre [...] ? DD/ 1 ? TD/TT: 04/13/24821 ? Exceptional Children'S Teacher: ? Procedure Note Padmini, Image - 04/13/2024 [place] [address] Ultrasound Report Signed Patient: Shelton Dunaway#: [id number] : 1995Acct:[id number] Age/Sex: 28 / FADM Date: 04/12/24 Loc: HO.US Attending Dr: Corky Beltre MD Ordering Physician: Corky Beltre MD Date of Service: 04/12/24 Procedure(s): US pelvic complete Accession Number(s): [id number] cc: Suzanna Mcallister MD; Corky Beltre MD [...] in OV> 04/13/24821 DD/ 1 TD/TT: 04/13/24821 Exceptional Children'S Teacher: [facility] External Provider IMG US PROCEDURES Edited Result - Final documented in this encounter Visit Diagnoses Not on filedocumented in this encounter Additional Health Concerns Assessment Noted Time PHQ-9 Depression Total Score: 18 023 9:08 AM EDT documented as of this encounter Care Teams Cnc Programmer Relationship Specialty Start Date End Date Suzanna Mcallister MD [address] [place] [address] PCP - General Family Medicine 01/28/19 Lyn Shelton Inventory TakerSap Pi Developer 08/17/23 documented as of this encounter
--- OUTSIDE RECORDS SUMMARY | 2024-04-18 10:21 | XMS_ITS | Encounter Summary ---
Author Organization [employer] Address [address] [place] [address] 7t [place] [address] Care Team Providers Care Dynamics Ax Consultant Name Role Phone Suzanna Mcallister MD Primary Care Provider + Encounter Details Date Type Department Care Team (Late st Contact Info) Description 05/30/2022 Orders Only [facility] [address] [place] [address] Natalia Blanco LPN Social History Tobacco Use [...] Description 04/29/2024 9:30 AM EST Clinical Support [facility] [address] [place] [address] [phone] 05/24/2024 9:15 AM EDT Office Visit [facility] [address] [place] [address] [phone] Suzanna Mcallister MD [address] [place] [address] [phone] documented as of this encounter Visit Diagnoses Not on filedocumented in this encounter Care Teams Dynamics Ax Consultant Relationship Specialty Start Date End Date Suzanna Mcallister MD [address] [place] [address] PCP - General Family Medicine 01/28/19 Lyn Shelton Chief Deputy Court ClerkRobot Programmer 08/17/23 documented as of this encounter
--- OUTSIDE RECORDS SUMMARY | 2024-04-18 10:21 | XMS_ITS | Encounter Summary ---
Author Organization [employer] Address [address] [place] [address] 7t [place] [address] Care Team Providers Care Lead Game Designer Name Role Phone Suzanna Mcallister MD Primary Care Provider + Reason for Visit * Reason Comments Med Refill Encounter Details Date Type Department Care Team (Late st Contact Info) Description 11/28/2022 Refill [facility] [address] [place] [address] Suzanna Mcallister MD [address] [place], [place] [phone] Social History Tobacco Use Types Packs/Day Years [...] Description 04/29/2024 9:30 AM EST Clinical Support [facility] [address] [place], [place] [phone] 05/24/2024 9:15 AM EDT Office Visit [facility] [address] [place] [address] Suzanna Mcallister MD [address] [place] [address] documented as of this encounter Visit Diagnoses Not on filedocumented in this encounter Care Teams Lead Game Designer Relationship Specialty Start Date End Date Suzanna Mcallister MD [address] [place] [phone] PCP - General Family Medicine 01/28/19 Lyn Shelton Cuff PresserLithographic Press Operator Apprentice 08/17/23 documented as of this encounter
--- OUTSIDE RECORDS SUMMARY | 2024-04-18 10:21 | XMS_ITS | Encounter Summary ---
Author Organization [employer] [facility] Address [address] [place] [address] 7t [place] [address] Care Team Providers Care Air Export Coordinator Name Role Phone Suzanna Mcallister MD Primary Care Provider + Encounter Details Date Type Department Care Team (Late st Contact Info) Description 07/13/2022 Orders Only [facility] [address] [place] [address] [phone] Melany Omer RN [address] [place] [address] [phone] Social History Tobacco Use Types Packs/Day Years [...] Description 04/29/2024 9:30 AM EST Clinical Support [address] [phone] 05/24/2024 9:15 AM EDT Office Visit [address] [phone] Suzanna Mcallister MD [address] [place] [address] [phone] documented as of this encounter Procedures Procedure Name Priority Date/Time Associated Diagnosis Comments BIOPSY CERVIX Routine 07/07/2022 12:00 AM EDT documented in this encounter Results * Biopsy cervix (07/07/2022 12:00 AM EDT) us Historical Provider MD IN CLINIC/BEDSIDE ORDERAB LES Final Result Performing Organization Address City/State/[facility] Co de Phone Number [facility] [address] [place] [address] [phone] documented in this encounter Visit Diagnoses Not on filedocumented in this encounter Care Teams Air Export Coordinator Relationship Specialty Start Date End Date Suzanna Mcallister MD [address] [place] [phone] PCP - General Family Medicine 01/28/19 Lyn Shelton Qa Automation DeveloperCulled Fruit Packer 08/17/23 documented as of this encounter
--- OUTSIDE RECORDS SUMMARY | 2024-04-18 10:21 | XMS_ITS | Encounter Summary ---
Author Organization [employer] Address [address] [place] [address] 7t [place] [address] Care Team Providers Care Fabric Designer Name Role Phone Suzanna Mcallister MD Primary Care Provider + Encounter Details Date Type Department Care Team (Late Contact Info) Description 09/07/2022 Abstract [facility] [address] [place] [phone] Suzanna Mcallister MD [address] [place] [address] Social History Tobacco Use Types Packs/Day Years [...] Description 04/29/2024 9:30 AM EST Clinical Support [address] [phone] 05/24/2024 9:15 AM EDT Office Visit [address] [phone] Suzanna Mcallister MD [address] [place] [address] documented as of this encounter Visit Diagnoses Not on filedocumented in this encounter Care Teams Fabric Designer Relationship Specialty Start Date End Date Suzanna Mcallister MD [address] [place] [phone] PCP - General Family Medicine 01/28/19 Lyn Shelton SharemilkerStock Handler Floorperson 08/17/23 documented as of this encounter
[2024-04-22 15:08] LABS: HPV Genotype 16 Negative (Negative); HPV Genotype 18 Negative (Negative); HPV High Risk Positive (Negative)
== END 2024-04-18 08:51 | disposition home or self-care (01) ==
LOC: HO.LNP 08:50
PROVIDERS: PCP Internal Medicine; Visit Provider Obstetrics & Gynecology
DX: N93.9 Abnormal uterine and vaginal bleeding, unspecified (principal); N87.1 Moderate cervical dysplasia; R87.611 Atypical squamous cells cannot exclude high grade squamous intraepithelial lesion on cytologic smear of cervix (ASC-H); D25.9 Leiomyoma of uterus, unspecified
CPT/HCPCS: 81025; 87626; 88175; 99212

== ENCOUNTER 2024-04-18 08:50 | Outpatient (AMB) | payer MEDICAID, SELFPAY ==
--- NOTE | 2024-04-18 08:56 | A.OFFVIS_ITS ---
Intake Visit Reasons: cotest/U/S results Operations Officer Afloat Required: Yes Operations Officer Afloat Language: Pulpwood Buyer Services: Operations Officer Afloat Present (in person) Operations Officer Afloat Name: Randi CONNORS Information Interpreted: non-clinical & clinical Spooler Operator: Spooler Operator Present (Randi CONNORS) Accompanied by: Self / Same As Patient Allergies No Known Allergies Allergy (Verified 04/18/24 09:04) Is last menstrual period known: No (depo) HPI Comments Details: Presenting for co testing six-month post LEEP cone with post cone ECC for SHAWNA 2 with negative margins. Has been on Depo-Provera for almost a year still complaining of daily vaginal bleeding it has not improved. EMB done in 07/20 showed inactive endometrium. The patient is requesting a different treatment for AUB. Pelvic ultrasound done on 04/13/2024 showed the following: Anteverted uterus is 7.8 cm length. Normal myometrium. Endometrium 2.0 mm thickness. There is a myometrial 1.1 x 1.0 x 0.0 cm leiomyoma, previously measuring 0.7 x 0.6 x 0.6 cm. Right ovary 1.9 x 1.5 x 1.2 cm. Left ovary not visualized. Normal color Doppler with arterial/venous spectral tracing of right ovary. No free fluid. [facility] Medical History LGSIL (low grade squamous intraepithelial dysplasia) Anxiety, generalized Insomnia Hypothyroid Anemia Asthma Scoliosis Muscular dystrophy Surgical History History of surgery on lower extremity Hx of tubal ligation History of back surgery H/O eye surgery Family History Mother Thyroid disorder HTN (hypertension) Father HTN (hypertension) Paternal Grandmother Diabetes Sister Thyroid disorder Sister No problems noted. Brother No problems noted. 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 Alcohol intake: current Alcohol intake frequency: does not drink Comment: w/c bound due to muscular dystrophy Patient Tobacco Use Status: Never used Tobacco Current occupational status: disabled Sexual orientation: Straight/Heterosexual Gender identity: Female Female Reproductive History Menstrual Age of Menarche: 12 control method: progesterone injection and permanent sterilization Date of last pap smear: 06/01/23 History of abnormal pap smear: Yes (HPV +) Review of Systems Const All systems reviewed & are unremarkable except as noted in HPI and below Physical Exam General: Yes no CVA tenderness External Female Exam: normal external appearance and normal appearance of the urethra Speculum Exam - Vagina: normal appearance of the vagina, normal palpation, no lesions and no masses Speculum Exam - Cervix: normal appearance of the cervix, normal palpation, no lesions, no masses and nontender Bimanual exam- vagina & uterus: normal bimanual exam, normal palpation, uterine size normal, normal palpation, uterine shape normal, No Cervical tenderness present and non-tender Bimanual Exam- Adnexa, other: normal adnexae Back/Spine/Pelvis Back: no CVA tenderness Assessment & Plan Assessment & Plan (1) SHAWNA II (cervical intraepithelial neoplasia II): Comment: 08/20 Status post LEEP cone with post cone ECC negative margins Code(s): N87.1 - Moderate cervical dysplasia Category: Medical Plan: Co testing done, if negative recommended repeat co testing in 1 year. Instructions given the patient to schedule a 1 year co testing appointment. All questions answered, the patient verbalized understanding (2) Abnormal uterine bleeding (AUB): Comment: On Depo-Provera Code(s): N93.9 - Abnormal uterine and vaginal bleeding, unspecified Category: Medical Plan: UPT done in the office was negative. CBC, TSH, hCG ordered. Discussed with the patient the results of the work up done and options of treatment including control pills, Mirena IUD, endometrial ablation and hysterectomy. All pros, cons, risks and benefits if each option was discussed with the patient and the patient decided to go ahead with Mirena IUD so a more detailed discussion about it was conducted including mechanism of action, risks (uterine perforation, infection, injury to bladder, bowel, displacement, and others) benefits (hypo menorrhea, amenorrhea, ...). GC/CT will be taken and the patient was instructed to cancel her next Depo Provera appointment scheduled on 04/28/2024 at [facility] and schedule Mirena IUD insertion on same day of her next Depo- Provera appointment on 04/28/2024 . All questions answered, the patient verbalized understanding (3) Uterine myoma: Code(s): D25.9 - Leiomyoma of uterus, unspecified Category: Medical Plan: Discussed with the patient the findings on pelvic ultrasound & the risk of myosarcoma; discussed with the patient the options of treatment including expectant management versus hysterectomy; the pros and cons, risks benefits of each approach were discussed with the patient including the fact that in cases of myosarcoma, surgical treatment can lead to early diagnosis and positively affects the prognosis; after further discussion, the patient decided to proceed with expectant management. Will repeat pelvic ultrasound periodically. Instructions given to patient to call in case any of the following occurs: pressure symptoms, abnormal uterine bleeding, pelvic pain; and to schedule a 12 months pelvic ultrasound (order placed) and a follow-up appointment . All questions answered, the patient verbalized understanding and agreed with the plan . Orders: Orders TSH reflex Free T4 Today N93.9 - Abnormal uterine and vaginal bleeding, unspecified US pelvic and transvaginal 12 Months D25.9 - Leiomyoma of uterus, unspecified HCG Quantitative Today N93.9 - Abnormal uterine and vaginal bleeding, unspecified Complete Blood Count no Diff Today N93.9 - Abnormal uterine and vaginal bleeding, unspecified Coding Level of Care Code Est Pt Level 3 (77649) Diagnoses SHAWNA II (cervical intraepithelial neoplasia II) N87.1 Abnormal uterine bleeding (AUB) N93.9 Uterine myoma D25.9
--- OUTSIDE RECORDS SUMMARY | 2024-04-18 09:20 | XMS_ITS | Encounter Summary ---
Author Organization [employer] Address [address] [place] [address] 7t [place] [address] Care Team Providers Care Mate Fourth Name Role Phone Suzanna Mcallister MD Primary Care Provider + Reason for Visit * Reason Onset Date Comments Appointment Request 04/08/2022 Encounter Details Date Type Department Care Team ([facility] st Contact Info) Description 04/08/2022 Telephone [facility] [address] [place], [place] [phone] Suzanna Mcallister MD [address] [place], [place] [phone] Appointment Request Social History Tobacco Use Types [...] Description 04/29/2024 9:30 AM EST Clinical Support [address] [phone] 05/24/2024 9:15 AM EDT Office Visit [address] [address] Suzanna Mcallister MD [address] [place] [phone] documented as of this encounter Visit Diagnoses Not on filedocumented in this encounter Care Teams Mate Fourth Relationship Specialty Start Date End Date Suzanna Mcallister MD [address] [place] [address] [phone] PCP - General Family Medicine 01/28/19 Lyn Shelton Supervisor Assembly StockLead Front Desk Agent 08/17/23 documented as of this encounter
--- OUTSIDE RECORDS SUMMARY | 2024-04-18 09:20 | XMS_ITS | Encounter Summary ---
Author Organization [employer] Address [address] [facility] 7t [place] [address] Care Team Providers Care Field Cane Scaler Name Role Phone Suzanna Mcallister MD Primary Care Provider + Reason for Visit * Reason Onset Date Comments Electric WheelChair Request 02/02/2023 Encounter Details Date Type Department Care Team ([facility] st Contact Info) Description 02/02/2023 Telephone [facility] [address] [place], [place] [phone] Suzanna Mcallister MD [address] [place], [place] [phone] Electric WheelChair Request Social History Tobacco Use [...] Wheelchair. Pt states she was advised by [employer] that it was time for a new electric wheelchair. 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
--- OUTSIDE RECORDS SUMMARY | 2024-04-18 09:20 | XMS_ITS | Encounter Summary ---
Author Organization [employer] Address [address] [facility] 7t [place] [address] Care Team Providers Care Mysql Database Administrator Name Role Phone Suzanna Mcallister MD Primary Care Provider + Reason for Visit * Reason Comments Pre-visit Planning SDOH screening negat sal and tobacco screening negative Encounter Details Date Type Department Care Team ([facility] st Contact Info) Description 03/29/2024 Patient Outreach [facility] [address] [place], [place] [phone] Suzanna Mcallister MD [address] [place], [place] [phone] Pre-visit Planning (SDOH screening negative and tobacco [...] Description 04/29/2024 9:30 AM EST Clinical Support [facility] [address] [place] [phone] 05/24/2024 9:15 AM EDT Office Visit [facility] [address] [place] [phone] Suzanna Mcallister MD [address] [place] [address] documented as of this encounter Visit Diagnoses Not on filedocumented in this encounter Additional Health Concerns Assessment Noted Time PHQ-9 Depression Total Score: 18 023 9:08 AM EDT documented as of this encounter Care Teams Mysql Database Administrator Relationship Specialty Start Date End Date Suzanna Mcallister MD [address] [place] [phone] PCP - General Family Medicine 01/28/19 Lyn Shelton Range ScientistSurveillance Dual Rate Officer 08/17/23 documented as of this encounter
--- OUTSIDE RECORDS SUMMARY | 2024-04-18 09:20 | XMS_ITS | Encounter Summary ---
Author Organization [employer] Address [address] [facility] 7t [place] [address] Care Team Providers Care Atomic Physics Teacher Name Role Phone Suzanna Mcallister MD Primary Care Provider + Reason for Visit * Reason Onset Date Comments Med Refill 03/08/2024 Encounter Details Date Type Department Care Team (Late st Contact Info) Description 03/08/2024 Refill [facility] [address] [place], [place] [phone] Suzanna Mcallister MD 230 [place], [place] [phone] Mild intermittent asthma, unspecified whether complicated Social [...] Description 04/29/2024 9:30 AM EST Clinical Support [facility] [address] [place] [phone] 05/24/2024 9:15 AM EDT Office Visit [address] [address] Suzanna Mcallister MD [address] [place] [phone] documented as of this encounter Visit Diagnoses Diagnosis Mild intermittent asthma, unspecified whether complicated documented in this encounter Additional Health Concerns Assessment Noted Time PHQ-9 Depression Total Score: 18 023 9:08 AM EDT documented as of this encounter Care Teams Atomic Physics Teacher Relationship Specialty Start Date End Date Suzanna Mcallister MD [address] [place] [phone] PCP - General Family Medicine 01/28/19 Lyn Shelton Marketing CopywriterPbx Technician 08/17/23 documented as of this encounter
--- OUTSIDE RECORDS SUMMARY | 2024-04-18 09:20 | XMS_ITS | Encounter Summary ---
Author Organization [employer] Address [address] [facility] 7t [place] [address] Care Team Providers Care Engraving Plate Maker Name Role Phone Suzanna Mcallister MD Primary [...] Description 04/29/2024 9:30 AM EST Clinical Support [facility] [address] [place] [phone] 05/24/2024 9:15 AM EDT Office Visit [address] [address] Suzanna Mcallister MD [address] [place] [address] documented as of this encounter Visit Diagnoses Not on filedocumented in this encounter Additional Health Concerns Assessment Noted Time PHQ-9 Depression Total Score: 18 023 9:08 AM EDT documented as of this encounter Care Teams Engraving Plate Maker Relationship Specialty Start Date End Date Suzanna Mcallister MD [address] [place] [phone] PCP - General Family Medicine 01/28/19 Lyn Shelton Transplant Registered NurseNitric Acid Concentrator Operator 08/17/23 documented as of this encounter
--- OUTSIDE RECORDS SUMMARY | 2024-04-18 09:20 | XMS_ITS | Encounter Summary ---
Author Organization [employer] Address [address] [facility] 7t [place] [address] Care Team Providers Care Brick Loader Name Role Phone Suzanna Mcallister MD Primary Care Provider + Reason for Visit * Reason Onset Date Comments Med Refill 11/20/2023 Encounter Details Date Type Department Care Team ([facility] st Contact Info) Description 11/20/2023 Telephone [facility] 230 [place], [place] [phone] Suzanna Mcallister MD 230 [place], [place] [phone] Med Refill Social History Tobacco Use Types [...] 150 MG/ML injection To be sent to: [facility] documented in this encounter Plan of Treatment Upcoming Encounters Date Type Department Care Team (Late st Contact Info) Description 04/29/2024 9:30 AM EST Clinical Support [facility] [address] [place] [phone] 05/24/2024 9:15 AM EDT Office Visit [facility] [address] [place] [address] Suzanna Mcallister MD 230 [place] [address] documented as of this encounter Visit Diagnoses Not on filedocumented in this encounter Additional Health Concerns Assessment Noted Time PHQ-9 Depression Total Score: 18 023 9:08 AM EDT documented as of this encounter Care Teams Brick Loader Relationship Specialty Start Date End Date Suzanna Mcallister MD [address] [place] [phone] PCP - General Family Medicine 01/28/19 Lyn Shelton Biofuels Operations ManagerFlat Optical Element Maker 08/17/23 documented as of this encounter
--- OUTSIDE RECORDS SUMMARY | 2024-04-18 09:20 | XMS_ITS | Clinical Summary ---
Author Organization [facility] Address [address] [place] [address] Care Team Providers Care Forge Press Operator Name Role Phone Suzanna Mcallister MD Primary Care Provider + [phone] Allergies No known active allergies Medications Medication [...] this topic Medical Devices Implanted Type Area Operations Consultant Device Identifier Shelf Expiration Date Model / Serial / Lot Screw Lcking [id number] [facility] [id number] - [id number] Implanted:Qty: 1 on 09/03/2022 by Elder Delgado MD at [facility] Left: Femur REEMA TRAUMA [id number] / / Screw Lcking [id number] St[employer]Tram [id number] - [id number] Implanted:Qty: 1 on 09/03/2022 by Elder Delgado MD at [facility] and [facility] Left: Femur REEMA TRAUMA [id number] / / Screw Locking 5x24mm St[employer]-Tram [id number] - [id number] Implanted:Qty: 2 on 09/03/2022 by Elder Delgado MD at [facility] and [facility] Left: Femur REEMA TRAUMA [id number] / / Screw Lcking [id number] Stry-Tram [id number] - [id number] Implanted:Qty: 1 on 09/03/2022 by Elder Delgado MD at [facility] and [facility] Left: Femur REEMA TRAUMA [id number] / / Screw Cortex Ti [id number] Stry-Tram [id number] - [id number] Implanted:Qty: 1 on 09/03/2022 by Elder Delgado MD at [facility] and [facility] Left: Femur REEMA TRAUMA [id number] / / Reema 5.0mm Compression , Narrow 14 Hole Plate Implanted:Qty: 1 on 09/03/2022 by Elder Delgado MD at [facility] and [facility] Left: Femur [id number] / / Description:REF# [id number] Advance Directives For more information, please contact: [phone] Latest Code Status on File Code Status Date Activated Date Inactivated Comments Full Code 09/02/2022 6:30 PM 09/05/2022 7:13 PM This c ode status was ascertained in the following way: discussion with patient . Care Teams Forge Press Operator Relationship Specialty Start Date End Date Suzanna Mcallister MD [address] [place] [phone] PCP - General Family Medicine 09/02/22
--- OUTSIDE RECORDS SUMMARY | 2024-04-18 09:20 | XMS_ITS | Encounter Summary ---
Author Organization [employer] Address [address] [place] [address] 7t [place] [address] Care Team Providers Care Bleacher Groundwood Pulp Name Role Phone Suzanna Mcallister MD Primary Care Provider + Encounter Details Date Type Department Care Team (Late st Contact Info) Description 06/28/2022 Orders Only [facility]S [address] [place] [address] Natalia Blanco LPN Social History Tobacco Use [...] Description 04/29/2024 9:30 AM EST Clinical Support [facility] MEDICINE [address] [place] [address] [phone] 05/24/2024 9:15 AM EDT Office Visit [facility]INE [address] [place] [address] [phone] Suzanna Mcallister MD [address] [place] [address] [phone] documented as of this encounter Visit Diagnoses Not on filedocumented in this encounter Care Teams Bleacher Groundwood Pulp Relationship Specialty Start Date End Date Suzanna Mcallister MD [address] [place] [phone] PCP - General Family Medicine 01/28/19 Lyn Shelton Retail Sales AssistantPhysician Scientist 08/17/23 documented as of this encounter
--- OUTSIDE RECORDS SUMMARY | 2024-04-18 09:20 | XMS_ITS | Encounter Summary ---
Author Organization [employer] Address [address] [place] [address] 7t [place] [address] Care Team Providers Care Coin Machine Supervisor Name Role Phone Suzanna Mcallister MD Primary Care Provider + Encounter Details Date Type Department Care Team (Late st Contact Info) Description 05/30/2022 Orders Only [facility] [address] [place] [address] Natalia Blanco LPN Social History Tobacco Use [...] 04/29/2024 9:30 AM EST Clinical Support [facility] [address] [place] [address] [phone] 05/24/2024 9:15 AM EDT Office Visit [facility] [address] [place] [address] [phone] Suzanna Mcallister MD [address] [place] [address] [phone] documented as of this encounter Visit Diagnoses Not on filedocumented in this encounter Care Teams Coin Machine Supervisor Relationship Specialty Start Date End Date Suzanna Mcallister MD [address] [place] [phone] PCP - General Family Medicine 01/28/19 Lyn Shelton Ingredient Scaler HelperBrush Fabrication Supervisor 08/17/23 documented as of this encounter
--- OUTSIDE RECORDS SUMMARY | 2024-04-18 09:20 | XMS_ITS | Encounter Summary ---
Author Organization [employer] Address [address] [place] [address] 7t [place] [address] Care Team Providers Care Header Machine Operator Name Role Phone Suzanna Mcallister MD Primary Care Provider + Encounter Details Date Type Department Care Team (Latest Contact Info) Description 09/07/2021 Abstract [facility] Dental, Provider, DDS Social History [...] Description 04/29/2024 9:30 AM EST Clinical Support [facility] [address] [place] [address] [phone] 05/24/2024 9:15 AM EDT Office Visit [facility] [address] [place] [address] [phone] Suzanna Mcallister MD [address] [place] [address] [phone] documented as of this encounter Visit Diagnoses Not on filedocumented in this encounter Care Teams Header Machine Operator Relationship Specialty Start Date End Date Suzanna Mcallister MD [address] [place] [phone] PCP - General Family Medicine 01/28/19 Lyn Shelton Agile Scrum CoachBatter Depositor 08/17/23 documented as of this encounter
--- OUTSIDE RECORDS SUMMARY | 2024-04-18 09:20 | XMS_ITS | Encounter Summary ---
Author Organization [employer] Address [address] [place] [address] [address] [address] Care Team Providers Care Professional Builder Name Role Phone Suzanna Mcallister MD Primary Care Provider + Reason for Visit * Reason Comments Med Refill Encounter Details Date Type Department Care Team (Late st Contact Info) Description 11/28/2022 Refill [facility] [address] [place] [address] Suzanna Mcallister MD 230 [place], [place] [phone] Social History Tobacco Use Types Packs/Day Years [...] 9:30 AM EST Clinical Support [facility] [address] [place], [place] [phone] 05/24/2024 9:15 AM EDT Office Visit [facility] [address] [place] [address] Suzanna Mcallister MD [address] [place] [address] documented as of this encounter Visit Diagnoses Not on filedocumented in this encounter Care Teams Professional Builder Relationship Specialty Start Date End Date Suzanna Mcallister MD [address] [place] [phone] PCP - General Family Medicine 01/28/19 Lyn Shelton Slate WorkerPalliative Care Nurse 08/17/23 documented as of this encounter
--- OUTSIDE RECORDS SUMMARY | 2024-04-18 09:20 | XMS_ITS | Encounter Summary ---
Author Organization [employer] Address [address] [facility] 7t [place] [address] Care Team Providers Care Senior Merchandiser Name Role Phone Suzanna Mcallister MD Primary Care Provider + Reason for Visit * Reason Comments Med Refill Encounter Details Date Type Department Care Team (Late st Contact Info) Description 05/01/2023 Refill [facility] [address] [place] [address] Kaylee Kingston, [facility] [address], [place] [phone] Social History Tobacco Use Types Packs/Day Years [...] 9:30 AM EST Clinical Support [facility] [address] [place] [phone] 05/24/2024 9:15 AM EDT Office Visit [facility] [address] [place] [phone] Suzanna Mcallister MD [address] [place] [address] documented as of this encounter Visit Diagnoses Not on filedocumented in this encounter Additional Health Concerns Assessment Noted Time PHQ-9 Depression Total Score: 18 023 9:08 AM EDT documented as of this encounter Care Teams Senior Merchandiser Relationship Specialty Start Date End Date Suzanna Mcallister MD [address] [place] [address] PCP - General Family Medicine 01/28/19 Lyn Shelton Weatherstrip Machine OperatorResidential Substance Abuse Counselor 08/17/23 documented as of this encounter
--- OUTSIDE RECORDS SUMMARY | 2024-04-18 09:20 | XMS_ITS | Encounter Summary ---
Author Organization [employer] Address [address] [facility] 7t [place] [address] Care Team Providers Care Professor Of Biostatistics Name Role Phone Suzanna Mcallister MD Primary Care Provider + Encounter Details Date Type Department Care Team (Late st Contact Info) Description 04/12/2024 Orders Only [facility] External Provider, [facility] Social History Tobacco Use Types Packs/Day Years [...] 9:30 AM EST Clinical Support [facility] MEDICINE [address] [place] [address] 05/24/2024 9:15 AM EDT Office Visit [address] [address] Suzanna Mcallister MD [address] [place] [address] documented as of this encounter Procedures Procedure Name Priority Date/Time Associated Diagnosis Comments US PELVIS COMPLETE Routine 04/13/2024 8: 22 AM EST documented in this encounter Results * Us Pelvis complete (04/13/2024 8:22 AM EST) Anatomical Region Laterality Modality Pelvis Ultrasound 04/13/2024 8:22 AM EST Narrative 04/13/2024 8:23 AM EST ? [facility] ?[address] ?[place] [address] ? Ultrasound Report ? Signed ? Patient: Laure Dunaway ?MR#: [id number] ?? [id number] ? : 1995 ?Acct:[id number] ? Age/Sex: 28 / F ?ADM Date: 02/14/25 ? Loc: HO.US ? Attending Dr: Corky Beltre MD ? Ordering Physician: Corky Beltre MD ?? Date of Service: 04/12/24 ?? Procedure(s): US pelvic complete ?? Accession Number(s): [id number] ? cc: Suzanna Mcallister MD; Corky Beltre MD ? CLINICAL HISTORY: D25.9 - Leiomyoma of uterus, unspecified ? US pelvis transabdominal with Doppler ? Comparison: 05/11/2023 ? Findings: ?? Transabdominal scanning performed for overall anatomy. ? Anteverted uterus is 7.8 cm length. ?? Normal myometrium. ?? Endometrium 2.0 mm thickness. ?? There is a myometrial 1.1 x 1.0 x 0.0 cm leiomyoma, previously measuring ?? 0.7 x 0.6 x 0.6 cm. ? Right ovary 1.9 x 1.5 x 1.2 cm. ?? Left ovary not visualized. ?? Normal color Doppler with arterial/venous spectral tracing of right ovary. ? No free fluid. ? IMPRESSION: ?? 1. Uterine leiomyoma. No evidence of ovarian torsion. ? This document has been electronically signed by: Elder Payan MD on ?? 04/13/2024 08:22:06 ? Dictated By: ?Elder Payan MD ? Signed By: ?<Electronically signed by Elder Payan MD in OV> ?04/13/24 0822 ? DD/ 1 ? TD/TT: 04/13/24821 ? Cherry Picker Operator: ? Procedure Note Padmini, Image - 04/13/2024 [place] [id number] Ultrasound Report Signed Patient: Shelton Dunaway#: [id number] : 1995Acct:[id number] Age/Sex: 28 / FADM Date: 04/12/24 Loc: HO.US Attending Dr: Corky Beltre MD Ordering Physician: Corky Beltre MD Date of Service: 04/12/24 Procedure(s): US pelvic complete Accession Number(s): [id number] cc: Suzanna Mcallister MD; Corky Beltre MD CLINICAL HISTORY: D25.9 - Leiomyoma of uterus, unspecified US pelvis transabdominal with Doppler Comparison: 05/11/2023 Findings: Transabdominal scanning performed for overall anatomy. Anteverted uterus is 7.8 cm length. Normal myometrium. Endometrium 2.0 mm thickness. There is a myometrial 1.1 x 1.0 x 0.0 cm leiomyoma, previously measuring 0.7 x 0.6 x 0.6 cm. Right ovary 1.9 x 1.5 x 1.2 cm. Left ovary not visualized. Normal color Doppler with arterial/venous spectral tracing of right ovary. No free fluid. IMPRESSION: 1. Uterine leiomyoma. No evidence of ovarian torsion. This document has been electronically signed by: Elder Payan MD on 04/13/2024 08:22:06 Dictated By: Elder Payan MD Signed By: <Electronically signed by Elder Payan MD in OV> 04/13/24821 DD/ 1 TD/TT: 04/13/24821 Cherry Picker Operator: [facility] External Provider IMG US PROCEDURES Edited Result - Final documented in this encounter Visit Diagnoses Not on filedocumented in this encounter Additional Health Concerns Assessment Noted Time PHQ-9 Depression Total Score: 18 023 9:08 AM EDT documented as of this encounter Care Teams Professor Of Biostatistics Relationship Specialty Start Date End Date Suzanna Mcallister MD [address] [place] [phone] PCP - General Family Medicine 01/28/19 Lyn Shelton Break Up WorkerManager Clinical Services 08/17/23 documented as of this encounter
--- OUTSIDE RECORDS SUMMARY | 2024-04-18 09:20 | XMS_ITS | Clinical Summary ---
Author Organization [employer] Address [address] [place] [address] 7t [place] [address] Care Team Providers Care Network Specialist Name Role Phone Suzanna Mcallister MD [...] 25 Active ergocalciferol (Vitamin D2) 1.25 MG (61238 UT) capsule TAKE 1 CAPSULE BY MOUTH [...] for help. PLAN: 1. Follow up with [facility]: Recommended for follow-up: Pt will connect [...] Encounters Date Type Department Care Team Description 04/12/2024 Orders Only [facility] External Provider, [facility] 04/04/2024 Travel 03/29/2024 Patient Outreach [facility] MEDICINE [address] [place] [phone] Suzanna Mcallister MD Pre-visit Planning (SDOH screening negative and tobacco screening negative) 03/08/[address] [facility] [address] [place] [address] Suzanna Mcallister MD Mild intermittent asthma, unspecified whether complicated 03/08/[address] [facility] [address] [place] [phone] Suzanna Mcallister MD Mild intermittent asthma, unspecified whether complicated 03/05/[address] [facility] [address] [place] [address] Suzanna Mcallister MD Anemia due to other cause, not classified 02/11/[address] [facility] [address] [place] [address] Suzanna Mcallister MD 02/09/[address] [address] [place] Chart prep 02/07/2024 9:30 AM EST Clinical Support [facility] [address] [place] [address] Mariana Yancey, JOSE EDUARDO Encounter for Depo-Provera contraception 02/07/2024 Travel 02/02/2024 Patient Outreach [facility] [address] [place] [address] Suzanna Mcallister MD Pre-visit Planning (SDOH screening [...] your housing situation today? I have tiburcio sánchze 12/25/[address] you li [...] AM EST Clinical Support [facility] [address] [place] [address] 05/24/2024 9:15 AM EDT Office Visit [facility] [address] [place] [address] Suzanna Mcallister MD [address] [place] [address] Health Maintenance Due Date Last Done Comments [...] COMPLETE Routine 04/13/2024 8: 22 AM EST POCT , URINE Routine 02/07/2024 9:39 AM [...] Recently Relevant to Health Maintenance Results * Us Pelvis complete (04/13/2024 8:22 AM EST) Anatomical Region Laterality Modality Pelvis Ultrasound 04/13/2024 8:22 AM EST Narrative 04/13/2024 8:23 AM EST ? [facility] ?[address] ?[place] [address] ? Ultrasound Report ? Signed ? Patient: Laure Dunaway ?MR#: [id number] ?? [id number] ? : 1995 ?Acct:[id number] ? Age/Sex: 28 / F ?ADM Date: 04/12/24 ? Loc: HO.US ? Attending Dr: Corky Beltre MD ? Ordering Physician: Corky Beltre MD ?? Date of Service: 04/12/24 ?? Procedure(s): US pelvic complete ?? Accession Number(s): [id number] ? cc: Suzanna Mcallister MD; Corky Beltre [...] ? DD/ 1 ? TD/TT: 04/13/24821 ? Mill House Supervisor: ? Procedure Note Donsergioter, Image - 04/13/2024 [place] [address] Ultrasound Report Signed Patient: Laure DunawayMR#: [id number] : 1995Acct:[id number] Age/Sex: 28 FADM Date: 04/12/24 Loc: HO.US Attending Dr: Corky Beltre MD Ordering Physician: Corky Beltre MD Date of Service: 04/12/24 Procedure(s): US pelvic complete Accession Number(s): [id number] cc: Suzanna Mcallister MD; Corky Beltre MD [...] in OV> 04/13/24821 DD/ 1 TD/TT: 04/13/24821 Mill House Supervisor: [facility] External Provider IMG US PROCEDURES Edited Result - Final * POCT Urine (02/07/2024 9:39 AM EST) Preg Test, Ur Negative Negative, Indeterminate, None Detected, Invalid, Specimen unsatisfactory for evaluation, Weakly Positive QC Media Lot # [id number] Lot# Expiration Date [id number] Urine 02/07/2024 9:39 AM EST Suzanna Mcallister MD POINT OF CARE TEST ENTER /EDIT ORDERABLES Final Result * Pap Smear (05/30/2023 9:21 AM EDT) 05/30/2023 9:21 AM EDT 06/01/2023 6:30 AM EDT Sana [facility] - 06/19/2023 1:09 PM EDT ----- ------- Name: Laure Dunaway ? Age/Sex: 27/F ? : 1995 Unit#: [id number] ?? Attend Dr: Corky Beltre MD ?Re05/30/23 ?Status: DEP REF ? Location: HO.LNP ?Disch: ? ----- ------- SPEC : [id number] ? RECD: 06/01/23 ? STATUS: ??SOUT ? REQ NUM: [id number] ? AUDRA: 05/30/23 ? SUBM DR: Corky [...] To: ?? Suzanna Mcallister MD ?? [address] [facility] ?? [place] [address] ? Corky Beltre MD ?? [address] [facility] [address] [place] [facility] ?? [place] [address] ?? [phone] ----- ------- Signed (signature on file) Madina [place] 06/19/23 1309 ? ----- ------- ? END OF REPORT ? us Generic External Data Provider LAB CYTOLOGY MARSHA WALLACE Final Result [facility] [address] [place] [address] [phone] * HIV Ab/Ag (CODEY TAYLOR) (12/20/2022 11:12 AM EDT) HIV AB/AG Nonreactive Nonreactive [facility] Comment:HIV-1 p24 Ag and/or HIV-1/HIV-2 Ab not detected.A test result that is nonreactive does not exclude thepossibility of exposure to or infection with HIV-1 and/orHIV-2. Nonreactive results in this assay for individualswith prior exposure to HIV-1 and/or HIV-2 may be due toantigen and antibody levels that are below the limit ofdetection of this assay.The [employer] HIV Ag/Ab Combo assay result andsupplemental assay results should be interpreted inconjunction with the patient's clinical presentation,history and other laboratory results. If the results areinconsistent with clinical evidence, additional testing issuggested to confirm the result. 12/20/2022 11:1 2 AM EDT 12/20/2022 1:24 PM EDT [facility] LAB BLOOD ORDERABLES Amy l Result Performing Organization Address [facility]/ZIP Co de Phone Number [facility] [address] [place] [phone] * Hepatitis C Antibody with Reflex to HCV, RNA, Quantitative, Real-Time PCR (12/20/2022 11:12 AM EDT) Pathologist [facility] Hepatitis C Antibody Nonreactive Nonreactive [facility] Comment:Antibodies to HCV no t detected; does not exclude early acuteHCV infection. Blood Venous blood specimen / Unknown 12/20/2022 11:12 AM EDT 12/20/2022 1:24 PM EDT [facility] LAB BLOOD ORDERABLES Amy l Result Performing Organization Address [facility] Co de Phone Number [facility] [address] [place] [phone] * (ABNORMAL) HPV mRNA E6/E7 w/Reflex to HPV Genotypes 16, 18/45 (03/15/2022 10:17 AM EST) HPV nRNA E6/E7 Detected(A ) Not Detected [facility] Comment:Methodology: Transcr iption-Mediated AmplificationThis assay detects E6/E7 viral messenger RNA (mRNA) from 14high-risk HPV types (16,18,31,33,35,39,45,51,52,56,58,59,66,68).Cervical sources are required for HPV testing.If a vaginal source from a patient who has had atotal hysterectomy with removal of cervix wassubmitted, please contact the testing laboratoryfor alternative testing options.For additional information, please refer tohttp://education.[employer]faq/LOT051o9(This link if provided for information/educational purposes only.)THIS TEST WAS PERFORMED AT:[facility] [place] [address] (1)[place] [address]UEKTVKALEY SIMON MD HPV 16 RNA NOT DETECTED NOT DETECTED [facility] HPV 18/45 RNA NOT DETECTED NOT DETECTED [facility] Comment:Methodology: Transcr iption Mediated AmplificationCervical sources are required for HPV testing.If a vaginal source from a patient who has had atotal hysterectomy with removal of cervix wassubmitted, please contact the testing laboratoryfor alternative testing options.THIS TEST WAS PERFORMED AT:[facility] [place] [address] (NL1)[place], [place] KARENA SIMON MD 03/15/2022 10:1 7 AM EST 03/15/2022 3:45 PM EST [facility] External Provider LAB CYT OLOGY ORDERABLES Final Result [facility] [address] [place] [address] [phone] from Last 3 Months or Most Recently Relevant to Health Maintenance Insurance [facility] ST[facility] Care Teams Network Specialist Relationship Specialty Start Date End Date Suzanna Mcallister MD [address] [place] [address] PCP - General Family Medicine 01/28/19 Lyn Shelton Manager Of Broadcast ContentBiztalk Architect 08/17/23
--- OUTSIDE RECORDS SUMMARY | 2024-04-18 09:20 | XMS_ITS | Encounter Summary ---
Author Organization [employer] Address [address] [place] [address] 7t [place] [address] Care Team Providers Care State Patrol Officer Name Role Phone Suzanna Mcallister MD Primary Care Provider + Encounter Details Date Type Department Care Team (Latest Contact Info) Description 09/04/2018 Abstract [facility] CONVERSIONS Dental, Provider, DDS Social History [...] EST Clinical Support [facility] [address] [place] [address] [phone] 05/24/2024 9:15 AM EDT Office Visit [facility] [address] [place] [address] [phone] Suzanna Mcallister MD [address] [place] [address] [phone] documented as of this encounter Visit Diagnoses Not on filedocumented in this encounter Care Teams State Patrol Officer Relationship Specialty Start Date End Date Suzanna Mcallister MD [address] [place] [phone] PCP - General Family Medicine 01/28/19 Lyn Shelton Retail Product AdvisorBisque Grader 08/17/23 documented as of this encounter
--- OUTSIDE RECORDS SUMMARY | 2024-04-18 09:20 | XMS_ITS | Encounter Summary ---
Author Organization [employer] Address [address] [place] [address] 7t [place] [address] Care Team Providers Care Production Tool Engineer Name Role Phone Suzanna Mcallister MD Primary Care Provider + Encounter Details Date Type Department Care Team (Late Contact Info) Description 09/07/2022 Abstract [facility] MEDICINE [address] [place] [phone] Suzanna Mcallister MD [address] [place] [address] Social History Tobacco Use Types Packs/Day Years [...] Description 04/29/2024 9:30 AM EST Clinical Support [address] [address] 05/24/2024 9:15 AM EDT Office Visit [address] [address] Suzanna Mcallister MD [address] [place] [address] documented as of this encounter Visit Diagnoses Not on filedocumented in this encounter Care Teams Production Tool Engineer Relationship Specialty Start Date End Date Suzanna Mcallister MD [address] [place] [address] PCP - General Family Medicine 01/28/19 Lyn Shelton Charge HistotechnologistWashtub Worker 08/17/23 documented as of this encounter
--- OUTSIDE RECORDS SUMMARY | 2024-04-18 09:20 | XMS_ITS | Encounter Summary ---
Author Organization [facility] Address [address] [place] [address] 7t [place] [address] Care Team Providers Care Outpatient Coding Specialist Name Role Phone Suzanna Mcallister MD Primary Care Provider + Encounter Details Date Type Department Care Team (Late st Contact Info) Description 07/13/2022 Orders Only [facility] MEDICINE [address] [place] [address] [phone] Melany Omer RN [address] [place] [address] [phone] Social History Tobacco Use Types Packs/Day Years [...] Description 04/29/2024 9:30 AM EST Clinical Support [address] [phone] 05/24/2024 9:15 AM EDT Office Visit [address] [phone] Suzanna Mcallister MD [address] [place] [address] [phone] documented as of this encounter Procedures Procedure Name Priority Date/Time Associated Diagnosis Comments BIOPSY CERVIX Routine 07/07/2022 12:00 AM EDT documented in this encounter Results * Biopsy cervix (07/07/2022 12:00 AM EDT) us Historical Provider MD IN CLINIC/BEDSIDE ORDERAB LES Final Result Performing Organization Address City/State/[facility] Co de Phone Number [facility] [address] [place] [address] [phone] documented in this encounter Visit Diagnoses Not on filedocumented in this encounter Care Teams Outpatient Coding Specialist Relationship Specialty Start Date End Date Suzanna Mcallister MD [address] [place] [phone] PCP - General Family Medicine 01/28/19 Lyn Shelton Welt SewerMechanical Design Engineer 08/17/23 documented as of this encounter
--- OUTSIDE RECORDS SUMMARY | 2024-04-18 09:20 | XMS_ITS | Encounter Summary ---
Author Organization [employer] Address [address] [place] [address] 7t [place] [address] Care Team Providers Care Generation Engineer Name Role Phone Suzanna Mcallister MD Primary Care Provider + Encounter Details Date Type Department Care Team (Late Contact Info) Description 09/20/2022 Abstract [facility]INE [address] [place] [phone] Suzanna Mcallister MD [address] [place] [address] Social History Tobacco Use Types Packs/Day Years [...] Description 04/29/2024 9:30 AM EST Clinical Support [address] [phone] 05/24/2024 9:15 AM EDT Office Visit [address] [phone] Suzanna Mcallister MD [address] [place], [place] [phone] documented as of this encounter Visit Diagnoses Not on filedocumented in this encounter Care Teams Generation Engineer Relationship Specialty Start Date End Date Suzanna Mcallister MD [address] [place], [place] [phone] PCP - General Family Medicine 01/28/19 Lyn Shelton Social Human Services AssistantsDirector Recreation 08/17/23 documented as of this encounter
== END 2024-04-18 10:11 | disposition home or self-care (01) ==
LOC: HO.HWS 08:50
PROVIDERS: PCP Internal Medicine; Visit Provider Obstetrics & Gynecology
DX: N87.1 Moderate cervical dysplasia (principal); N93.9 Abnormal uterine and vaginal bleeding, unspecified; D25.9 Leiomyoma of uterus, unspecified; Z32.02 Encounter for pregnancy test, result negative
CPT/HCPCS: 99213

== ENCOUNTER 2024-04-18 09:48 | Outpatient (REF) | payer MEDICAID, SELFPAY ==
--- OUTSIDE RECORDS SUMMARY | 2024-04-18 10:42 | XMS_ITS | Encounter Summary ---
Author Organization [employer] Address [address] [facility] 7t h Floor [address] Care Team Providers Care [employer] Executive Director Name Role Phone Suzanna Mcallister MD Primary Care Provider + Reason for Visit * Reason Comments Med Refill Encounter Details Date Type Department Care Team (Late st Contact Info) Description 05/01/2023 Refill [facility] [address] [place] [address] Kaylee Kingston, [facility] [address] [place], [place] [phone] Social History Tobacco Use Types Packs/Day Years [...] Description 04/29/2024 9:30 AM EST Clinical Support [facility] [address] [place] [phone] 05/24/2024 9:15 AM EDT Office Visit [facility] [address] [place] [address] Suzanna Mcallister MD [address] [place] [phone] documented as of this encounter Visit Diagnoses Not on filedocumented in this encounter Additional Health Concerns Assessment Noted Time PHQ-9 Depression Total Score: 18 023 9:08 AM EDT documented as of this encounter Care Teams [employer] Executive Director Relationship Specialty Start Date End Date Suzanna Mcallister MD [address] [place] [address] PCP - General Family Medicine 01/28/19 Lyn Shelton Press CutterReligious Studies Professor 08/17/23 documented as of this encounter
--- OUTSIDE RECORDS SUMMARY | 2024-04-18 10:42 | XMS_ITS | Encounter Summary ---
Author Organization [employer] Address [address] [facility] 7t [place] [address] Care Team Providers Care Field Marketing Lead Name Role Phone Suzanna Mcallister MD Primary Care Provider + Reason for Visit * Reason Onset Date Comments Electric WheelChair Request 02/02/2023 Encounter Details Date Type Department Care Team ([facility] st Contact Info) Description 02/02/2023 Telephone [facility] [address] [place], [place] [phone] Suzanna Mcallister MD [address] [place], [place] [phone] Electric WheelChair Request Social History Tobacco Use [...] Wheelchair. Pt states she was advised by [employer] that it was time for a new electric wheelchair. 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
--- OUTSIDE RECORDS SUMMARY | 2024-04-18 10:42 | XMS_ITS | Encounter Summary ---
Author Organization [employer] Address [address] [facility] 7t [place] [address] Care Team Providers Care Research Laboratory Specialist Name Role Phone Suzanna Mcallister MD Primary Care Provider + Reason for Visit * Reason Onset Date Comments Med Refill 11/20/2023 Encounter Details Date Type Department Care Team ([facility] st Contact Info) Description 11/20/2023 Telephone [facility] [address] [place], [place] [phone] Suzanna Mcallister MD [address] [place], [place] [phone] Med Refill Social History Tobacco Use Types [...] EST Clinical Support [facility] [address] [place] [phone] 05/24/2024 9:15 AM EDT Office Visit [facility] [address] [place] [address] Suzanna Mcallister MD [address] [place] [address] documented as of this encounter Visit Diagnoses Not on filedocumented in this encounter Additional Health Concerns Assessment Noted Time PHQ-9 Depression Total Score: 18 023 9:08 AM EDT documented as of this encounter Care Teams Research Laboratory Specialist Relationship Specialty Start Date End Date Suzanna Mcallister MD [address] [place] [address] PCP - General Family Medicine 01/28/[address] VendorAircraft Lay Out Worker 08/17/23 documented as of this encounter
--- OUTSIDE RECORDS SUMMARY | 2024-04-18 10:43 | XMS_ITS | Encounter Summary ---
Author Organization [employer] Address [address] [place] [address] 7t [place] [address] Care Team Providers Care Hoisting Engine Operator Name Role Phone Suzanna Mcallister MD Primary Care Provider + Encounter Details Date Type Department Care Team (Latest Contact Info) Description 09/07/2021 Abstract [facility] CONVERSIONS Dental, Provider, DDS Social [...] Description 04/29/2024 9:30 AM EST Clinical Support [facility] [address] [place] [address] [phone] 05/24/2024 9:15 AM EDT Office Visit [facility] [address] [place] [address] [phone] Suzanna Mcallister MD [address] [place] [address] [phone] documented as of this encounter Visit Diagnoses Not on filedocumented in this encounter Care Teams Hoisting Engine Operator Relationship Specialty Start Date End Date Suzanna Mcallister MD [address] [place] [phone] PCP - General Family Medicine 01/28/19 Lyn Shelton Meat Counter WorkerAnalytical Consultant 08/17/23 documented as of this encounter
--- OUTSIDE RECORDS SUMMARY | 2024-04-18 10:43 | XMS_ITS | Encounter Summary ---
Author Organization [employer] Address [address] [facility] 7t [place] [address] Care Team Providers Care Management Supervisor Name Role Phone Suzanna Mcallister MD Primary Care Provider + Encounter Details Date Type Department Care Team (Late st Contact Info) Description 04/12/2024 Orders Only [facility] External Provider, [facility] Social History Tobacco Use Types Packs/Day Years [...] Description 04/29/2024 9:30 AM EST Clinical Support [facility] [address] [place] [phone] 05/24/2024 9:15 AM EDT Office Visit [address] [phone] Suzanna Mcallister MD [address] [place] [address] documented as of this encounter Procedures Procedure Name Priority Date/Time Associated Diagnosis Comments US PELVIS COMPLETE Routine 04/13/2024 8: 22 AM EST documented in this encounter Results * Us Pelvis complete (04/13/2024 8:22 AM EST) Anatomical Region Laterality Modality Pelvis Ultrasound 04/13/2024 8:22 AM EST Narrative 04/13/2024 8:23 AM EST ? [facility] ?[address] ?[place] [address] ? Ultrasound Report ? Signed ? Patient: Laure Dunaway ?MR#: [id number] ?? [id number] ? : 1995 ?Acct:[id number] ? Age/Sex: 28 / F ?ADM Date: 02/14/25 ? Loc: HO.US ? Attending Dr: Corky Beltre MD ? Ordering Physician: Corky Beltre MD ?? Date of Service: 04/12/24 ?? Procedure(s): US pelvic complete ?? Accession Number(s): [id number] ? cc: Suzanna Mcallister MD; Corky Beltre [...] ? DD/ 1 ? TD/TT: 04/13/24821 ? Scrubber Machine Tender: ? Procedure Note Padmini, Image - 04/13/2024 [place] [address] Ultrasound Report Signed Patient: Shelton Dunaway#: [id number] : 1995Acct:[id number] Age/Sex: 28 / FADM Date: 04/12/24 Loc: HO.US Attending Dr: Corky Beltre MD Ordering Physician: Corky Beltre MD Date of Service: 04/12/24 Procedure(s): US pelvic complete Accession Number(s): [id number] cc: Suzanna Mcallister MD; Corky Beltre MD [...] in OV> 04/13/24821 DD/ 1 TD/TT: 04/13/24821 Scrubber Machine Tender: [facility] External Provider IMG US PROCEDURES Edited Result - Final documented in this encounter Visit Diagnoses Not on filedocumented in this encounter Additional Health Concerns Assessment Noted Time PHQ-9 Depression Total Score: 18 023 9:08 AM EDT documented as of this encounter Care Teams Management Supervisor Relationship Specialty Start Date End Date Suzanna Mcallister MD [address] [place] [address] PCP - General Family Medicine 01/28/19 Lyn Shelton Director Of AnalyticsPickers Material Handlers 08/17/23 documented as of this encounter
--- OUTSIDE RECORDS SUMMARY | 2024-04-18 10:43 | XMS_ITS | Encounter Summary ---
Author Organization [employer] Address [address] [place] [address] 7t [place] [address] Care Team Providers Care Pharmacy Student Name Role Phone Suzanna Mcallister MD Primary Care Provider + Encounter Details Date Type Department Care Team (Late st Contact Info) Description 05/30/2022 Orders Only [facility] [address] [place] [address] Natalia Blanco LPN Social History Tobacco Use [...] 9:30 AM EST Clinical Support [facility] [address] [place] [address] [phone] 05/24/2024 9:15 AM EDT Office Visit [facility] [address] [place] [address] [phone] Suzanna Mcallister MD [address] [place] [address] [phone] documented as of this encounter Visit Diagnoses Not on filedocumented in this encounter Care Teams Pharmacy Student Relationship Specialty Start Date End Date Suzanna Mcallister MD [address] [place] [phone] PCP - General Family Medicine 01/28/19 Lyn Shelton Product Inspection SupervisorChief Meter Reader 08/17/23 documented as of this encounter
--- OUTSIDE RECORDS SUMMARY | 2024-04-18 10:43 | XMS_ITS | Clinical Summary ---
Author Organization [employer] Address [address] [place] [address] 7t [place] [address] Care Team Providers Care Office Service Coordinator Name Role Phone Suzanna Mcallister MD [...] 25 Active ergocalciferol (Vitamin D2) 1.25 MG (78495 UT) capsule TAKE 1 CAPSULE BY MOUTH [...] for help. PLAN: 1. Follow up with [facility]: Recommended for follow-up: Pt will connect with [...] Department Care Team Description 04/12/2024 Orders Only [facility] External Provider, [facility] 04/04/2024 Travel 03/29/2024 Patient Outreach [facility] [address] [place] [phone] Suzanna Mcallister MD Pre-visit Planning (SDOH screening negative and tobacco screening negative) 03/08/2024 Refill [facility] [address] [place] [phone] Suzanna Mcallister MD Mild intermittent asthma, unspecified whether complicated 03/08/2024 Refill [facility] [address] [place] [phone] Suzanna Mcallister MD Mild intermittent asthma, unspecified whether complicated 03/05/2024 Refill [facility] [address] [place] [address] Suzanna Mcallister MD Anemia due to other cause, not classified 02/11/2024 Refill [facility] [address] [place] [phone] Suzanna Mcallister MD 02/09/[address] [place] [address] [address] [place] Chart prep 02/07/2024 9:30 AM EST Clinical Support [facility] [address] [place] [phone] Mariana Yancey, JOSE EDUARDO Encounter for Depo-Provera contraception 02/07/2024 Travel 02/02/2024 Patient Outreach [facility] [address] [place] [phone] Suzanna Mcallister MD Pre-visit Planning (SDOH screening [...] Description 04/29/2024 9:30 AM EST Clinical Support [facility] [address] [place] [phone] 05/24/2024 9:15 AM EDT Office Visit [facility] [address] [place] [phone] Suzanna Mcallister MD [address] [place] [phone] Health Maintenance Due Date Last Done Comments [...] EST Narrative 04/13/2024 8:23 AM EST ? [facility] ?[address] ?[place] [address] ? Ultrasound Report ? Signed ? Patient: Laure Dunaway ?MR#: [id number] ?? [id number] ? : 1995 ?Acct:[id number] ? Age/Sex: 28 / F ?ADM Date: 04/12/24 ? Loc: HO.US ? Attending Dr: Corky Beltre MD ? Ordering Physician: Corky Beltre MD ?? Date of Service: 04/12/24 ?? Procedure(s): US pelvic complete ?? Accession Number(s): [id number] ? cc: Suzanna Mcallister MD; Corky Beltre [...] ? DD/ 1 ? TD/TT: 04/13/24821 ? Criminal Justice Lawyer: ? Procedure Note Donsergioter, Image - 04/13/2024 [place] [address] Ultrasound Report Signed Patient: Laure DunawayMR#: [id number] : 1995Acct:[id number] Age/Sex: 28 FADM Date: 04/12/24 Loc: HO.US Attending Dr: Corky Beltre MD Ordering Physician: Corky Beltre MD Date of Service: 04/12/24 Procedure(s): US pelvic complete Accession Number(s): [id number] cc: Suzanna Mcallister MD; Corky Beltre MD [...] in OV> 04/13/24821 DD/ 1 TD/TT: 04/13/24821 Criminal Justice Lawyer: [facility] External Provider IMG US PROCEDURES Edited Result - Final * POCT Urine (02/07/2024 9:39 AM EST) Preg Test, Ur Negative Negative, Indeterminate, None Detected, Invalid, Specimen unsatisfactory for evaluation, Weakly Positive QC Media Lot # [id number] Lot# Expiration Date [id number] Urine 02/07/2024 9:39 AM EST Suzanna Mcallister MD POINT OF CARE TEST ENTER /EDIT ORDERABLES Final Result * Pap Smear (05/30/2023 9:21 AM EDT) 05/30/2023 9:21 AM EDT 06/01/2023 6:30 AM EDT Sana [facility] - 06/19/2023 1:09 PM EDT ----- ------- Name: Laure Dunaway ? Age/Sex: 27/F ? : 1995 Unit#: [id number] ?? Attend Dr: Corky Beltre MD ?Re05/30/23 ?Status: DEP REF ? Location: HO.LNP ?Disch: ? ----- ------- SPEC : [id number] ? RECD: 06/01/23 ? STATUS: ??SOUT ? REQ NUM: [id number] ? AUDRA: 05/30/23 ? SUBM DR: Corky [...] To: ?? Suzanna Mcallister MD ?? [address] [facility] ?? [place] [address] ? Corky Beltre MD ?? [address] [facility] [address] [place] [facility] ?? [place] [address] ?? [phone] ----- ------- Signed (signature on file) Madina Hancock 06/19/23 1309 ? ----- ------- ? END OF REPORT ? us Generic External Data Provider LAB CYTOLOGY MARSHA WALLACE Final Result [facility] [address] [facility] [place] [address] [phone] * HIV Ab/Ag (CODEY TAYLOR) (12/20/2022 11:12 AM EDT) HIV AB/AG Nonreactive Nonreactive [facility] Comment:HIV-1 p24 Ag and/or HIV-1/HIV-2 Ab not detected.A test result that is nonreactive does not exclude thepossibility of exposure to or infection with HIV-1 and/orHIV-2. Nonreactive results in this assay for individualswith prior exposure to HIV-1 and/or HIV-2 may be due toantigen and antibody levels that are below the limit ofdetection of this assay.The [employer] HIV Ag/Ab Combo assay result andsupplemental assay results should be interpreted inconjunction with the patient's clinical presentation,history and other laboratory results. If the results areinconsistent with clinical evidence, additional testing issuggested to confirm the result. 12/20/2022 11:1 2 AM EDT 12/20/2022 1:24 PM EDT [facility] BLOOD ORDERABLES Amy l Result Performing Organization Address [facility]/ZIP Co de Phone Number [facility] [address] [place] [phone] * Hepatitis C Antibody with Reflex to HCV, RNA, Quantitative, Real-Time PCR (12/20/2022 11:12 AM EDT) Pathologist [facility] Hepatitis C Antibody Nonreactive Nonreactive [facility] Comment:Antibodies to HCV no t detected; does not exclude early acuteHCV infection. Blood Venous blood specimen / Unknown 12/20/2022 11:12 AM EDT 12/20/2022 1:24 PM EDT [facility] LAB BLOOD ORDERABLES Amy l Result Performing Organization Address [facility] Co de Phone Number [facility] [address] [place] [phone] * (ABNORMAL) HPV mRNA E6/E7 w/Reflex to HPV Genotypes 16, 18/45 (03/15/2022 10:17 AM EST) HPV nRNA E6/E7 Detected(A ) Not Detected [facility] Comment:Methodology: Transcr iption-Mediated AmplificationThis assay detects E6/E7 viral messenger RNA (mRNA) from 14high-risk HPV types (16,18,31,33,35,39,45,51,52,56,58,59,66,68).Cervical sources are required for HPV testing.If a vaginal source from a patient who has had atotal hysterectomy with removal of cervix wassubmitted, please contact the testing laboratoryfor alternative testing options.For additional information, please refer [email or web address]/faq/HDU984f4(This link if provided for information/educational purposes only.)THIS TEST WAS PERFORMED AT:[email or web address] [place] [address] (1)[place] [address]UQEJRKALEY SIMON MD HPV 16 RNA NOT DETECTED NOT DETECTED [facility] HPV 18/45 RNA NOT DETECTED NOT DETECTED [facility] Comment:Methodology: Transcr iption Mediated AmplificationCervical sources are required for HPV testing.If a vaginal source from a patient who has had atotal hysterectomy with removal of cervix wassubmitted, please contact the testing laboratoryfor alternative testing options.THIS TEST WAS PERFORMED AT:[email or web address] [place] [address] (NL1)[place], [place] KARENA SIMON MD 03/15/2022 10:1 7 AM EST 03/15/2022 3:45 PM EST [facility] External Provider LAB CYT OLOGY ORDERABLES Final Result [facility] [address] [place] [address] [phone] from Last 3 Months or Most Recently Relevant to Health Maintenance Insurance [facility] Care Teams Office Service Coordinator Relationship Specialty Start Date End Date Suzanna Mcallister MD [address] [place] [phone] PCP - General Family Medicine 01/28/19 Lyn Shelton Marine UnderwriterCommunity Health Education Coordinator 08/17/23
--- OUTSIDE RECORDS SUMMARY | 2024-04-18 10:43 | XMS_ITS | Encounter Summary ---
Author Organization [employer] Address [address] [facility] 7t [place] [address] Care Team Providers Care Product Safety Test Engineer Name Role Phone Suzanna Mcallister MD Primary Care Provider + Reason for Visit * Reason Onset Date Comments Med Refill 03/08/2024 Encounter Details Date Type Department Care Team (Late st Contact Info) Description 03/08/2024 Refill [facility] [address] [place], [place] [phone] Suzanna Mcallister MD 230 [place], [place] [phone] Mild intermittent asthma, unspecified whether complicated Social [...] Description 04/29/2024 9:30 AM EST Clinical Support [facility] [address] [place] [phone] 05/24/2024 9:15 AM EDT Office Visit [address] [address] Suzanna Mcallister MD [address] [place] [address] documented as of this encounter Visit Diagnoses Diagnosis Mild intermittent asthma, unspecified whether complicated documented in this encounter Additional Health Concerns Assessment Noted Time PHQ-9 Depression Total Score: 18 023 9:08 AM EDT documented as of this encounter Care Teams Product Safety Test Engineer Relationship Specialty Start Date End Date Suzanna Mcallister MD [address] [place] [phone] PCP - General Family Medicine 01/28/19 Lyn Shelton Mortgage Loan CounselorCook Room Supervisor 08/17/23 documented as of this encounter
--- OUTSIDE RECORDS SUMMARY | 2024-04-18 10:43 | XMS_ITS | Encounter Summary ---
Author Organization [employer] Address [address] [place] [address] 7t [place] [address] Care Team Providers Care Ink Jet Operator Name Role Phone Suzanna Mcallister MD Primary Care Provider + Reason for Visit * Reason Comments Med Refill Encounter Details Date Type Department Care Team (Late st Contact Info) Description 11/28/2022 Refill [facility] 230 [place] [address] Suzanna Mcallister MD 230 [place], [place] [phone] Social History Tobacco Use Types Packs/Day Years [...] Description 04/29/2024 9:30 AM EST Clinical Support [facility] [address] [place], [place] [phone] 05/24/2024 9:15 AM EDT Office Visit [facility] [address] [place] [address] Suzanna Mcallister MD 230 [place] [address] documented as of this encounter Visit Diagnoses Not on filedocumented in this encounter Care Teams Ink Jet Operator Relationship Specialty Start Date End Date Suzanna Mcallister MD [address] [place] [phone] PCP - General Family Medicine 01/28/19 Lyn Shelton Coordinator Cardiopulmonary ServicesPlaner Mill Grader 08/17/23 documented as of this encounter
--- OUTSIDE RECORDS SUMMARY | 2024-04-18 10:43 | XMS_ITS | Encounter Summary ---
Author Organization [employer] Address [address] [place] [address] 7t [place] [address] Care Team Providers Care Cable Splicer Assistant Name Role Phone Suzanna Mcallister MD Primary Care Provider + Reason for Visit * Reason Onset Date Comments Appointment Request 04/08/2022 Encounter Details Date Type Department Care Team ([facility] st Contact Info) Description 04/08/2022 Telephone [facility]INE 230 [place], [place] [phone] Suzanna Mcallister MD 230 [place], [place] [phone] Appointment Request Social History Tobacco Use Types [...] Description 04/29/2024 9:30 AM EST Clinical Support [address] [address] 05/24/2024 9:15 AM EDT Office Visit [address] [address] Suzanna Mcallister MD [address] [place] [address] documented as of this encounter Visit Diagnoses Not on filedocumented in this encounter Care Teams Cable Splicer Assistant Relationship Specialty Start Date End Date Suzanna Mcallister MD [address] [place] [address] [phone] PCP - General Family Medicine 01/28/19 Lyn Shelton Tax EconomistResource Conservation Specialist 08/17/23 documented as of this encounter
--- OUTSIDE RECORDS SUMMARY | 2024-04-18 10:43 | XMS_ITS | Encounter Summary ---
Author Organization [facility] Address [address] [place] [address] 7t [place] [address] Care Team Providers Care Career And Guidance Counselor Name Role Phone Suzanna Mcallister MD Primary Care Provider + Encounter Details Date Type Department Care Team (Late st Contact Info) Description 07/13/2022 Orders Only [facility] MEDICINE [address] [place] [address] [phone] Melany Omer RN [address] [place] [address] [phone] Social History Tobacco Use Types Packs/Day Years [...] Description 04/29/2024 9:30 AM EST Clinical Support [address] [phone] 05/24/2024 9:15 AM EDT Office Visit [address] [phone] Suzanna Mcallister MD [address] [place] [address] [phone] documented as of this encounter Procedures Procedure Name Priority Date/Time Associated Diagnosis Comments BIOPSY CERVIX Routine 07/07/2022 12:00 AM EDT documented in this encounter Results * Biopsy cervix (07/07/2022 12:00 AM EDT) us Historical Provider MD IN CLINIC/BEDSIDE ORDERAB LES Final Result Performing Organization Address City/State/[facility] Co de Phone Number [facility] [address] [place] [address] [phone] documented in this encounter Visit Diagnoses Not on filedocumented in this encounter Care Teams Career And Guidance Counselor Relationship Specialty Start Date End Date Suzanna Mcallister MD [address] [place] [phone] PCP - General Family Medicine 01/28/19 Lyn Shelton Tree Tapping LaborerExecutive Personal Assistant 08/17/23 documented as of this encounter
--- OUTSIDE RECORDS SUMMARY | 2024-04-18 10:43 | XMS_ITS | Encounter Summary ---
Author Organization [employer] Address [address] [place] [address] 7t [place] [address] Care Team Providers Care Machine Rope Maker Name Role Phone Suzanna Mcallister MD Primary Care Provider + Encounter Details Date Type Department Care Team (Latest Contact Info) Description 09/04/2018 Abstract [facility] Dental, Provider, DDS Social History [...] Description 04/29/2024 9:30 AM EST Clinical Support [facility] MEDICINE [address] [place] [address] [phone] 05/24/2024 9:15 AM EDT Office Visit [facility] [address] [place] [address] [phone] Suzanna Mcallister MD [address] [place] [address] [phone] documented as of this encounter Visit Diagnoses Not on filedocumented in this encounter Care Teams Machine Rope Maker Relationship Specialty Start Date End Date Suzanna Mcallister MD [address] [place] [phone] PCP - General Family Medicine 01/28/19 Lyn Shelton Biodiesel Plant ManagerNatural Resource Technician 08/17/23 documented as of this encounter
--- OUTSIDE RECORDS SUMMARY | 2024-04-18 10:43 | XMS_ITS | Clinical Summary ---
Author Organization [facility] Address [address] [place] [address] Care Team Providers Care Pizza Hut Assistant Name Role Phone Suzanna Mcallister MD Primary Care Provider + [phone] Allergies No known active allergies Medications Medication [...] this topic Medical Devices Implanted Type Area Glass Fitter Device Identifier Shelf Expiration Date Model / Serial / Lot Screw Lcking [id number] [facility] [id number] - [id number] Implanted:Qty: 1 on 09/03/2022 by Elder Delgado [place] [facility] Left: Femur REEMA TRAUMA [id number] / / Screw Lcking [id number] Stry-Tram [id number] - [id number] Implanted:Qty: 1 on 09/03/2022 by Elder Delgado [place] [facility] Left: Femur REEMA TRAUMA [id number] / / Screw Locking 5x24mm Stry-Tram [id number] - [id number] Implanted:Qty: 2 on 09/03/2022 by Elder Delgado [place] [facility] Left: Femur REEMA TRAUMA [id number] / / Screw Lcking [id number] Stry-Tram [id number] - [id number] Implanted:Qty: 1 on 09/03/2022 by Elder Delgado [place] [facility] Left: Femur REEMA TRAUMA [id number] / / Screw Cortex Ti [id number] Stry-Tram [id number] - [id number] Implanted:Qty: 1 on 09/03/2022 by Elder Delgado MD [place] [facility] Left: Femur REEMA TRAUMA [id number] / / Reema 5.0mm Compression , Narrow 14 Hole Plate Implanted:Qty: 1 on 09/03/2022 by Elder Delgado MD [place] [facility] Left: Femur [id number] / / Description:REF# [id number] Advance Directives For more information, please contact: [phone] Latest Code Status on File Code Status Date Activated Date Inactivated Comments Full Code 09/02/2022 6:30 PM 09/05/2022 7:13 PM This c ode status was ascertained in the following way: discussion with patient . Care Teams Pizza Hut Assistant Relationship Specialty Start Date End Date Suzanna Mcallister MD [address] [place] [phone] PCP - General Family Medicine 09/02/22
--- OUTSIDE RECORDS SUMMARY | 2024-04-18 10:43 | XMS_ITS | Encounter Summary ---
Author Organization [employer] Address 75 [facility] 7t [place] [address] Care Team Providers Care Parts Room Associate Name Role Phone Suzanna Mcallister MD Primary Care Provider + Reason for Visit * Reason Comments Pre-visit Planning SDOH screening negat sal and tobacco screening negative Encounter Details Date Type Department Care Team ([facility] st Contact Info) Description 03/29/2024 Patient Outreach [facility] 230 [place], [place] [phone] Suzanna Mcallister MD 230 [place], [place] [phone] Pre-visit Planning (SDOH screening negative and tobacco [...] Description 04/29/2024 9:30 AM EST Clinical Support [facility] [address] [place] [address] 05/24/2024 9:15 AM EDT Office Visit [facility] [address] [place] [address] Suzanna Mcallister MD 230 [place] [address] documented as of this encounter Visit Diagnoses Not on filedocumented in this encounter Additional Health Concerns Assessment Noted Time PHQ-9 Depression Total Score: 18 023 9:08 AM EDT documented as of this encounter Care Teams Parts Room Associate Relationship Specialty Start Date End Date Suzanna Mcallister MD [address] [place] [phone] PCP - General Family Medicine 01/28/19 Lyn Shelton Electroplating TechnicianMotor Bike Mechanic 08/17/23 documented as of this encounter
--- OUTSIDE RECORDS SUMMARY | 2024-04-18 10:43 | XMS_ITS | Encounter Summary ---
Author Organization [employer] Address [address] [place] [address] 7t [place] [address] Care Team Providers Care Thermometer Maker Name Role Phone Suzanna Mcallister MD Primary Care Provider + Encounter Details Date Type Department Care Team (Late Contact Info) Description 09/07/2022 Abstract [facility] MEDICINE [address] [place] [phone] Suzanna Mcallister MD 230 [place] [address] Social History Tobacco Use Types Packs/Day Years [...] Description 04/29/2024 9:30 AM EST Clinical Support [address] [address] 05/24/2024 9:15 AM EDT Office Visit [address] [address] Suzanna Mcallister MD 230 [place] [address] documented as of this encounter Visit Diagnoses Not on filedocumented in this encounter Care Teams Thermometer Maker Relationship Specialty Start Date End Date Suzanna Mcallister MD 230 [place] [address] PCP - General Family Medicine 01/28/19 Lyn Shelton Flight Controls EngineerHospital Corpsman 08/17/23 documented as of this encounter
--- OUTSIDE RECORDS SUMMARY | 2024-04-18 10:43 | XMS_ITS | Encounter Summary ---
Author Organization [employer] Address [address] [place] [address] 7t [place] [address] Care Team Providers Care Front End Assistant Name Role Phone Suzanna Mcallister MD Primary Care Provider + Encounter Details Date Type Department Care Team (Late Contact Info) Description 09/20/2022 Abstract [facility] MEDICINE [address] [place] [phone] Suzanna Mcallister MD 230 [place] [address] Social History Tobacco Use Types Packs/Day Years [...] Description 04/29/2024 9:30 AM EST Clinical Support [address] [phone] 05/24/2024 9:15 AM EDT Office Visit [address] [phone] Suzanna Mcallister MD 230 [place], [place] [phone] documented as of this encounter Visit Diagnoses Not on filedocumented in this encounter Care Teams Front End Assistant Relationship Specialty Start Date End Date Suzanna Mcallister MD 230 [place], [place] [phone] PCP - General Family Medicine 01/28/19 Lyn Shelton Wood GluerBig 6 Dealer 08/17/23 documented as of this encounter
--- OUTSIDE RECORDS SUMMARY | 2024-04-18 10:43 | XMS_ITS | Encounter Summary ---
Author Organization [employer] Address 75 [facility] 7t [place] [address] Care Team Providers Care Home Comfort Advisor Name Role Phone Suzanna Mcallister MD Primary [...] Description 04/29/2024 9:30 AM EST Clinical Support [facility] MEDICINE [address] [place] [phone] 05/24/2024 9:15 AM EDT Office Visit [address] [address] Suzanna Mcallister MD [address] [place] [address] documented as of this encounter Visit Diagnoses Not on filedocumented in this encounter Additional Health Concerns Assessment Noted Time PHQ-9 Depression Total Score: 18 023 9:08 AM EDT documented as of this encounter Care Teams Home Comfort Advisor Relationship Specialty Start Date End Date Suzanna Mcallister MD [address] [place] [address] PCP - General Family Medicine 01/28/19 Lyn Shelton Fpga EngineerSeed Cutter 08/17/23 documented as of this encounter
--- OUTSIDE RECORDS SUMMARY | 2024-04-18 10:43 | XMS_ITS | Encounter Summary ---
Author Organization [employer] Address [address] [place] [address] 7t [place] [address] Care Team Providers Care Food And Beverage Assistant Name Role Phone Suzanna Mcallister MD Primary Care Provider + Encounter Details Date Type Department Care Team (Late st Contact Info) Description 06/28/2022 Orders Only [facility]EDS [address] [place] [address] Natalia Blanco LPN Social History Tobacco Use [...] Description 04/29/2024 9:30 AM EST Clinical Support [facility] MEDICINE [address] [place] [address] [phone] 05/24/2024 9:15 AM EDT Office Visit [facility] MED[facility]INE [address] [place] [address] [phone] Suzanna Mcallister MD [address] [place] [address] [phone] documented as of this encounter Visit Diagnoses Not on filedocumented in this encounter Care Teams Food And Beverage Assistant Relationship Specialty Start Date End Date Suzanna Mcallister MD [address] [place] [phone] PCP - General Family Medicine 01/28/19 Lyn Shelton Sales Donor Recruitment RepresentativeReception Interviewer 08/17/23 documented as of this encounter
[2024-04-18 11:04] LABS: Hematocrit 31.6 % (37.0-47.0); Hemoglobin 9.4 g/dl (12.0-16.0); Mean Corpuscular HGB Conc 29.7 g/dl (31.0-35.0); Mean Corpuscular Hemoglobin 20.8 pg (27.0-33.0); Mean Corpuscular Volume 69.9 fL (80.0-98.0); Mean Platelet Volume 10.5 fL (9.4-12.3); Platelet Count 422 X10*3/uL (160-400); Red Blood Count 4.52 X10*6/uL (4.20-5.50); Red Cell Distribution Width 19.6 % (11.0-16.0); White Blood Count 6.3 X10*3/uL (4.8-10.8)
[2024-04-18 11:47] LABS: HCG Quantitative < 2 mIU/mL; TSH reflex Free T4 1.36 uIU/mL (0.32-4.0)
== END 2024-04-18 09:49 | disposition home or self-care (01) ==
LOC: HO.LAB 09:48
PROVIDERS: PCP Internal Medicine; Visit Provider Obstetrics & Gynecology
DX: Z32.02 Encounter for pregnancy test, result negative (principal); N93.9 Abnormal uterine and vaginal bleeding, unspecified
CPT/HCPCS: 36415; 84443; 84702; 85027

== ENCOUNTER 2024-10-15 10:07 | Outpatient (REF) | payer MEDICAID, SELFPAY ==
[2024-10-15 11:03] LABS: MANUAL DIFF FLAG NO
[2024-10-15 11:13] LABS: Hematocrit 29.3 % (37.0-47.0); Hemoglobin 8.3 g/dl (12.0-16.0); Mean Corpuscular HGB Conc 28.3 g/dl (31.0-35.0); Mean Corpuscular Hemoglobin 19.4 pg (27.0-33.0); Mean Corpuscular Volume 68.6 fL (80.0-98.0); NRBC Abs Auto 0.000 X10*3/uL (0.0-0.012); NRBC Pct Auto 0.0 /100WBC (0.0-0.2); Platelet Count 446 X10*3/uL (160-400); Red Blood Count 4.27 X10*6/uL (4.20-5.50); White Blood Count 9.4 X10*3/uL (4.8-10.8)
[2024-10-15 11:21] LABS: Hematocrit 29.0 % (37.0-47.0); Hemoglobin 8.2 g/dl (12.0-16.0); Imm Gran Abs Auto 0.03 X10*3/uL (0.00-0.03); Imm Gran Pct Auto 0.3 % (0.0-0.4); Lymphocytes Absolute Auto 1.8 X10*3/uL (1.2-4.9); Mean Corpuscular HGB Conc 28.3 g/dl (31.0-35.0); Mean Corpuscular Hemoglobin 19.5 pg (27.0-33.0); Mean Corpuscular Volume 68.9 fL (80.0-98.0); NRBC Abs Auto 0.000 X10*3/uL (0.0-0.012); NRBC Pct Auto 0.0 /100WBC (0.0-0.2); Platelet Count 447 X10*3/uL (160-400); Red Blood Count 4.21 X10*6/uL (4.20-5.50); White Blood Count 9.2 X10*3/uL (4.8-10.8)
--- OUTSIDE RECORDS SUMMARY | 2024-10-15 11:22 | XMS_ITS ---
Author Name [facility] Organization Unknown Encounters Encounter Type Encounter Reason Primary Diagnosis Location Date Ambulatory Displaced subtro chanteric fracture of left femur, initial encounter for closed fracture [facility] 09/28/2022 Inpatient Displaced subtro chanteric fracture of left femur, initial encounter for closed fracture [facility] 09/02/2022 Care Team Organization Name Specialty Phone Email Start Date End Da te [facility] ALEXANDER JOHNSON Primary Care 09/02/2022 09/02/2022
--- OUTSIDE RECORDS SUMMARY | 2024-10-15 11:22 | XMS_ITS | Encounter Summary ---
Author Organization [employer] Address [address] [facility] 7t [place] [address] Care Team Providers Care Street Light Wirer Name Role Phone Suzanna Mcallister MD Primary Care Provider + Encounter Details Date Type Department Care Team ([facility] st Contact Info) Description 04/18/2024 Orders Only [facility] 230 [place], [place] [phone] Suzanna Mcallister MD 230 [place], [place] [phone] Social History Tobacco Use Types Packs/Day Years [...] Care Team (Late st Contact Info) Description 12/18/2024 10:15 AM EDT Office Visit [facility] [address] [place] [address] [phone] Suzanna Mcallister MD 230 [place] [address] documented as of this encounter Procedures Procedure Name Priority Date/Time Associated Diagnosis Comments HPV DNA, LOW/HIGH RISK Routine 04/18/2024 9:32 AM EST PAP SMEAR Routine 04/18/2024 9:32 AM EST documented in this encounter Results * Pap Smear (04/18/2024 9:32 AM EST) 04/18/2024 9:32 AM EST 04/18/2024 11:00 AM EST [facility] - 04/22/2024 5:14 PM EST ----- ------- Name: Laure Dunaway Age/Sex: 28/F : 1995 Unit#: [id number] Attend Dr: Corky Beltre MD Re04/18/24 Status: DEP REF Location: [facility] Disch: ----- ------- SPEC : [id number] RECD: 04/18/24 STATUS: [place] PITT NUM: [id number] AUDRA: 04/18/24-[address] [facility] [address]: Corky Beltre MD ENTERED: 04/18/24-1110 SP TYPE: Pap Smr OTHR DR: Suzanna Mcallister MD ORDERED: Pap Smear Interpretation ABNORMAL PAP TEST. Satisfactory for evaluation, with atypical squamous cells of undetermined significance (ASC-US). Scant cellularity. HPV High Risk: Positive HPV Genotyping 16: Negative HPV Genotyping 18: Negative Clinical Information LMP: Depo shot Previous PAP test: 06/01/2023, [facility] 1, HPV + Other history: Moderate cervical dysplasia Material Received ThinPrep-Cervical Copies To: Suzanna Mcallister MD [address] [phone] Corky Beltre MD [facility] Women[facility] Services [address] [place], [place] [phone] ----- ------- Signed (signature on file) Kalyan Caal MD 04/22/24 1714 ----- ------- END OF REPORT Generic External Data Provider LAB CYTOLOGY ORDE RABLES Final Result Performing Organization Address [facility] Co de Phone Number [facility] [address] [place] [phone] * (ABNORMAL) HPV DNA, Low/High Risk (04/18/2024 9:32 AM EST) Pathologist [facility] HPV High Risk Positive(A) Negative [facility] HPV Genotype 16 Negative Negative [facility] HPV Genotype 18 Negative Negative [facility] Comment:HPV testing performe d at [facility] (CLIA#[id number]), [address] [place] [address].Testing for HPV was performed using the Jayden HIRA 6800system. The presence of HPV in the female genital tract isassociated with a number of diseases, including cervicalcarcinoma. The HPV DNA high risk pool tests for HPV 31, 33,35, 39, 45, 51, 52, 56, 58, 59, 66 and 68. The testing forHPV 16 and 18 genotypes has also been performed. A positiveresult indicates detection of nucleic acid sequences fromone or more subtypes, whereas a negative result indicatessuch sequences were not detected. 04/18/2024 9:32 AM EST 04/18/2024 11:00 AM EST Generic External Data Provider LAB BLOOD ORDERAB LES Final Result Performing Organization Address [facility] Co de Phone Number [facility] [address] [place] [address] [phone] documented in this encounter Visit Diagnoses Not on filedocumented in this encounter Additional Health Concerns Assessment Noted Time PHQ-9 Depression Total Score: 18 023 9:08 AM EDT documented as of this encounter Care Teams Street Light Wirer Relationship Specialty Start Date End Date Suzanna Mcallister MD [address] [place] [phone] PCP - General Family Medicine 01/28/19 Lyn Shelton Staple CutterGauge Machine Operator 08/17/23 Lyn Shelton Staple CutterGauge Machine Operator 08/01/24 documented as of this encounter
--- OUTSIDE RECORDS SUMMARY | 2024-10-15 11:22 | XMS_ITS | Clinical Summary ---
Author Organization [facility] Address [address] [place] [address] Care Team Providers Care Christian Ministries Professor Name Role Phone Suzanna Mcallister MD Primary Care Provider + [phone] Allergies No known active allergies Medications Medication [...] 118 09/05/2022 7:49 AM EDT Temperature 37.1 C (98.8 F) 09/05/2022 7:49 AM EDT Respiratory Rate 16 09/05/2022 7:49 AM EDT [...] 01/22/1997, Additional history exists Influenza Vaccine (#1) 2024 , 03/20/2019, 11/30/2017, Additional history exists Pneumococcal Vaccine Aged Out 12/09/2016 No long er eligible based on patient's age to complete this topic Hepatitis B Vaccines Completed 03/25/2022, 12/31/2021, 12/03/2021, Additional history exists RSV Ped < 20 months Aged Out No longe r eligible based on patient's age to complete this topic Medical Devices Implanted Type Area Glass Breaker Device Identifier Shelf Expiration Date Model / Serial / Lot Screw Lcking 5.7cix61ph [facility] [id number] - [id number] Implanted:Qty: 1 on 09/03/2022 by Elder Delgado MD [place] [facility] Left: Femur REEMA TRAUMA [id number] / / Screw Lcking [id number] Stry-Tram [id number] - [id number] Implanted:Qty: 1 on 09/03/2022 by Elder Delgado MD at [facility] Left: Femur REEMA TRAUMA [id number] / / Screw Locking 5x24mm Stry-Tram [id number] - [id number] Implanted:Qty: 2 on 09/03/2022 by Elder Delgado MD at [facility] Left: Femur REEMA TRAUMA [id number] / / Screw Lcking [id number] Stry-Tram [id number] - [id number] Implanted:Qty: 1 on 09/03/2022 by Elder Delgado MD at [facility] Left: Femur REEMA TRAUMA [id number] / / Screw Cortex Ti [id number] Stry-Tram [id number] - [id number] Implanted:Qty: 1 on 09/03/2022 by Elder Delgado MD at [facility] Left: Femur REEMA TRAUMA [id number] / / Reema 5.0mm Compression , Narrow 14 Hole Plate Implanted:Qty: 1 on 09/03/2022 by Elder Delgado MD at [facility] Left: Femur [id number] / / Description:REF# [id number] Advance Directives For more information, please contact: [phone] Latest Code Status on File Code Status Date Activated Date Inactivated Comments Full Code 09/02/2022 6:30 PM 09/05/2022 7:13 PM This c ode status was ascertained in the following way: discussion with patient . Care Teams Christian Ministries Professor Relationship Specialty Start Date End Date Suzanna Mcallister MD [address] [place] [phone] PCP - General Family Medicine 09/02/22
[2024-10-15 13:37] LABS: Alanine Aminotransferase 14 U/L (0-31); Albumin Level 4.5 g/dL (3.5-5.0); Alkaline Phosphatase 66 U/L (39-117); Anion Gap 11 (12-20); Aspartate Amino Transferase 26 U/L (5-31); Blood Urea Nitrogen 11 mg/dL (9-16); Calcium 9.1 mg/dL (8.4-10.2); Carbon Dioxide 26 mmol/L (22-29); Chloride 106 mmol/L (96-108); Cholesterol 191 mg/dL (<200); Estimated Glomerular Filt Rate > 60; HDL Cholesterol 54 mg/dL (>40); Potassium 4.0 mmol/L (3.3-5.1); Sodium 139 mmol/L (135-145); Total Protein 7.8 g/dL (6.5-8.0); Triglycerides 63 mg/dL (<150)
[2024-10-15 13:53] LABS: Ferritin 5 ng/mL (10-122)
[2024-10-15 14:09] LABS: Reflex LDLD? No
[2024-10-15 15:21] LABS: CT PCR Urine NOT DETECTED (Not Detect.); NG PCR Urine NOT DETECTED (Not Detect.)
[2024-10-16 08:26] LABS: Syphilis Screen Nonreactive (Nonreactive)
[2024-10-16 08:32] LABS: HIV Num 1 0.05 S/CO (0.00-0.99)
[2024-10-18 01:03] LABS: TS Negative Control Passed; TS Panel A 0; TS Panel B 0; TS Positive Control Passed; TSpotTB Negative (Negative)
== END 2024-10-15 10:08 | disposition home or self-care (01) ==
LOC: HO.HHCL 10:07
PROVIDERS: Obstetrics & Gynecology; PCP Internal Medicine; Visit Provider Internal Medicine
DX: Z00.00 Encounter for general adult medical examination without abnormal findings (principal); Z11.1 Encounter for screening for respiratory tuberculosis; Z11.3 Encounter for screening for infections with a predominantly sexual mode of transmission; Z11.8 Encounter for screening for other infectious and parasitic diseases; Z11.4 Encounter for screening for human immunodeficiency virus [HIV]; R21 Rash and other nonspecific skin eruption; Z91.89 Other specified personal risk factors, not elsewhere classified; Q89.2 Congenital malformations of other endocrine glands; D50.9 Iron deficiency anemia, unspecified; G71.00 Muscular dystrophy, unspecified
CPT/HCPCS: 36415; 80053; 80061; 82306; 82728; 84443; 85025; 85027; 86481; 86780; 87389; 87491; 87591